=== PATIENT | female | born 1960 | race Caucasian/White ===

== ENCOUNTER → 2018-12-22 14:35 | Outpatient (CLI) | payer OTHER, SELFPAY ==
[2014-09-23 06:47] VITALS: BMI 31.4
[2018-12-22 15:37] LABS: Anion Gap 6 (5-15); BUN 19 mg/dL (7-18); BUN/Creat Ratio 24.1 RATIO (10-20); Calcium,Total 9.3 mg/dL (8.5-10.1); Chloride 106 mmol/L (98-107); Creatinine, Serum 0.79 mg/dL (0.55-1.02); EST Glomerular Filtration Rate 80 mL/min (>60); Est Glom Filt Rate - Afr Amer 97 mL/min (>60); Glucose 95 mg/dL (74-106); Sodium Level 138 mmol/L (136-145)
== END ==
PROVIDERS: Referring Provider Internal Medicine Endocrinology, Diabetes & Metabolism; Visit Provider Internal Medicine Endocrinology, Diabetes & Metabolism
DX: L68.0 Hirsutism (principal); L64.9 Androgenic alopecia, unspecified
CPT/HCPCS: 36415; 80048

== ENCOUNTER → 2019-02-24 08:52 | Outpatient (CLI) | payer OTHER, SELFPAY ==
[2014-09-23 06:47] VITALS: BMI 31.4
[2019-02-24 11:17] LABS: ALB/GLOB Ratio 1.1 RATIO (0.9-2.4); AST(SGOT) 13 U/L (15-37); Alanine Aminotransfer ALT/SGPT 20 U/L (13-56); Albumin, Serum 3.8 g/dL (3.2-5.0); Alkaline Phosphatase 81 U/L (45-117); Anion Gap 7 (5-15); BUN 16 mg/dL (7-18); Calcium,Total 9.1 mg/dL (8.5-10.1); Chloride 107 mmol/L (98-107); Cholesterol 198 mg/dL (200); Creatinine, Serum 0.67 mg/dL (0.55-1.02); EST Glomerular Filtration Rate 97 mL/min (>60); Est Glom Filt Rate - Afr Amer 117 mL/min (>60); Globulin 3.4 g/dL (2.2-4.2); Glucose 88 mg/dL (74-106); High Density Lipoprotein 76 mg/dL; Potassium 4.2 mmol/L (3.5-5.1); Protein, Total 7.2 g/dL (6.4-8.2); Sodium Level 139 mmol/L (136-145); Triglycerides 101 mg/dL; Very Low Density Lipoprotein 20 mg/dL (5-40)
== END ==
PROVIDERS: Referring Provider Internal Medicine Endocrinology, Diabetes & Metabolism; Visit Provider Internal Medicine Endocrinology, Diabetes & Metabolism
DX: L68.0 Hirsutism (principal); E78.2 Mixed hyperlipidemia
CPT/HCPCS: 36415; 80053; 80061

== ENCOUNTER 2021-07-03 17:40 | Outpatient (CLI) | payer OTHER, SELFPAY ==
--- NOTE | 2021-07-03 17:41 | MRI_ITS ---
EXAM: MR LEFT UPPER EXTREMITY WITHOUT INTRAVENOUS CONTRAST, SHOULDER CLINICAL INDICATION: injury, pain TECHNIQUE: Multiplanar and multisequence MR images of the left shoulder without intravenous contrast. This report was created using evly report generation technology. COMPARISON: None. FINDINGS: TENDONS: SUPRASPINATUS: Complete tear of the supraspinatus tendon. Distance of a tear of the supraspinatus tendon is 13 mm. There is retraction. INFRASPINATUS: Normal infraspinatus tendon. Normal subscapularis tendon. Normal teres minor tendon. SUBSCAPULARIS: See above. TERES MINOR: See above. BICEPS BRACHII, LONG HEAD: Unremarkable. The extra-articular biceps tendon is in the bicipital groove. The intra-articular biceps tendon is normal. LIGAMENTS: GLENOHUMERAL: Unremarkable. Intact. MUSCLES: Unremarkable. No rotator cuff muscle atrophy. FLUID: Unremarkable. No joint effusion. No subacromial-subdeltoid space bursal fluid. CARTILAGE: Unremarkable. Articular cartilage intact. GLENOID LABRUM: Unremarkable. Intact, limited evaluation on non-arthrographic exam. BONES/JOINTS: There is moderate degenerative arthrosis of the glenohumeral articulation. No fracture. No abnormal bone marrow signal. OTHER SOFT TISSUES: Unremarkable. No rotator interval edema. MRI/Upper Ext Joint Only(Routine) IMPRESSION: Complete tear of the supraspinatus tendon. Electronically Signed: Rich Sanon MD at 19:42 EST Reading Location ID and State: [facility] / [place] , Service support ,
== END 2021-07-03 23:59 | disposition home or self-care (01) ==
PROVIDERS: PCP Family Medicine; Visit Provider Orthopaedic Surgery
DX: M24.819 Other specific joint derangements of unspecified shoulder, not elsewhere classified (principal); S46.912A Strain of unspecified muscle, fascia and tendon at shoulder and upper arm level, left arm, initial encounter
CPT/HCPCS: 73221

== ENCOUNTER → 2023-03-21 | Outpatient (CLI) | payer OTHER, SELFPAY ==
[2023-03-21 12:36] LABS: Absolute Lymphocyte Count 1.52 X10^3/uL (0.83-4.51); Absolute Neutrophil Count 3.8 X10^3/uL (2.0-7.7); Basophil# 0.03 X10^3/uL; Basophil% 0.5 % (0-1); Eosinophil# 0.38 X10^3/uL; Eosinophils% 6.3 % (0-5); Hematocrit 43.3 % (37-47); Hemoglobin 14.3 g/dL (12.0-15.0); Lymphocyte # 1.52 X10^3/ul (0.83-4.51); Lymphocyte % 25.2 % (19-41); Mean Corpuscular Volume 93.7 fL (81-99); Mean Platelet Vol. 10.1 fl (6.2-12.0); NRBC Flagged by Analyzer 0 % (0-5); Neutrophil # 3.77 X10^3/uL (2.7-7.7); Neutrophil % 62.7 % (47-70); Platelet Count 257 K/mm3 (150-450); RBC Distribution Width CV 11.9 % (11.6-14.6); RBC Distribution Width SD 40.9 fl (35.1-43.9); Red Blood Count 4.62 M/mm3 (4.2-5.4)
[2023-03-21 13:03] LABS: ALB/GLOB Ratio 1.2 RATIO (0.9-2.4); AST(SGOT) 15 U/L (15-37); Alanine Aminotransfer ALT/SGPT 21 U/L (13-56); Alkaline Phosphatase 84 U/L (45-117); Anion Gap 4 (5-15); BUN 17 mg/dL (7-18); BUN/Creat Ratio 24.4 RATIO (10-20); Chloride 109 mmol/L (98-107); Cholesterol 198 mg/dL (200); EST Glomerular Filtration Rate 91 mL/min (>60); Est Glom Filt Rate - Afr Amer 110 mL/min (>60); Globulin 3.2 g/dL (2.2-4.2); Glucose 94 mg/dL (74-106); High Density Lipoprotein 69 mg/dL; Potassium 4.1 mmol/L (3.5-5.1); Protein, Total 7.2 g/dL (6.4-8.2); Sodium Level 138 mmol/L (136-145); Thyroid Stim Hormone (TSH) 1.69 uIU/mL (0.358-3.74); Triglycerides 75 mg/dL; Very Low Density Lipoprotein 15 mg/dL (5-40)
== END | disposition home or self-care (01) ==
LOC: BFHLAB 10:33
PROVIDERS: PCP Family Medicine; Referring Provider Family Medicine; Visit Provider Family Medicine
DX: Z00.00 Encounter for general adult medical examination without abnormal findings (principal); E66.9 Obesity, unspecified; R53.83 Other fatigue
CPT/HCPCS: 36415; 80053; 80061; 84443; 85025

== ENCOUNTER 2023-07-27 16:43 | Emergency (ER) | payer OTHER, SELFPAY ==
[2023-07-27 16:44] VITALS: BP 146/70; PULSE 97; RESP 18; TEMP 36.6; O2SAT 99; BMI 32.0
[2023-07-27 17:34] LABS: Mucous, Urine 0 SEEN /hpf (<or=2+); Squamous Epithelial Cells - UA 0 SEEN /hpf (5-10)
[2023-07-27 17:36] LABS: Color, Urine Brown (Yellow); Glucose, Dipstick Normal (Normal); Ketone-Dipstick 15 mg/dl (Negative); Leukocyte Esterase-Dipstick 100 /ul (Negative); Nitrite-Dipstick Positive (Negative); Occult Blood-Urine 250 /ul (Negative); Protein-Dipstick 500 mg/dl (Negative); Urine Clarity Turbid (Clear); Urine Urobilinogen Normal (Normal)
[2023-07-27 17:38] LABS: Urine Bilirubin Dipstick 1 mg/dL (Negative)
[2023-07-27 17:42] LABS: Bacteria 2+ /hpf (None Seen); Red Blood Cells-Urine 25-50 SEEN /hpf (0-5); White Blood Cells 10-25 SEEN /hpf (0-5)
[2023-07-27] MEDS: Cephalexin 250 MG Capsule 500 MG PO (18:16)
--- NOTE | 2023-07-27 18:16 | EDS_ITS ---
HPI History of Present Illness Chief Complaint: Complaint Informant: patient and spouse/S.O. Narrative Narrative: 63-year-old female presenting to the emergency room with chief complaint of blood in the urine. Patient states that it has varied in color today. She feels like she is emptying her bladder. She is not on a blood thinner. No fevers. She has no dysuria or frequency. No trauma. She is not smoker. She has had UTIs in the past but not any blood like this. PFSH PFSH Medical History Acute maxillary sinusitis, unspecified Rotator cuff tear, left Home Medications sertraline 50 mg tablet ea PO 05/16/21 [History Last Taken Unknown] cephalexin 500 mg capsule 500 mg PO Q12 #14 CAPSULES 07/27/23 [Rx Last Taken Unknown] Allergy/AdvReac Type Severity Reaction Status Date / Time Sulfa (Sulfonamide Allergy Rash Verified 04/02/22 12:01 Antibiotics) Family History Father Hypertension Mother Dementia Surgical History History of hysterectomy History of repair of ACL History of tonsillectomy Social History Smoking Status: Never smoker alcohol intake: current alcohol intake frequency: holidays/special occasions only Alcohol type: wine ROS ROS ED Constitutional Constitutional ED: Denies chills or weight loss Eyes Eyes: Denies change in vision or diplopia ENT ENT ED: Denies ear pain, rhinorrhea or sore throat Cardiovascular Cardiovascular: Denies chest pain, orthopnea, palpitations or racing heartbeat Respiratory/Chest Respiratory/Chest: Denies cough, dyspnea or orthopnea Gastrointestinal Gastrointestinal: Denies abdominal pain, diarrhea, nausea or vomiting Genitourinary Genitourinary ED: Reports hematuria; Denies dysuria or urinary frequency Musculoskeletal Musculoskeletal: Denies arthralgias or myalgias Integumentary Denies abscess or rash Neurologic Neurologic: Denies headache(s) or weakness Psychiatric Psychiatric: Denies anxiety, depression, suicidal ideation or suicidal thoughts Endocrine Endocrinology: Denies polydipsia, polyphagia or polyuria Allergic/Immunologic Allergic/Immunologic ED: Denies mouth swelling, tongue swelling or urticaria EXAM Physical Exam Const Vital Signs: 07/27/23 16:44 Temperature 97.8 F Temperature Source Temporal Pulse Rate 97 Respiratory Rate 18 Blood Pressure 146/70 H Blood Pressure Mean 95 Pulse Ox 99 Oxygen Delivery Method Room Air Positive well nourished and well developed General Appearance ED: well developed HEENT Reports normocephalic, head/scalp atraumatic and moist mucous membranes Eyes PERRL and EOMs intact bilaterally Neck no lymphadenopathy, supple and no JVD Resp normal respiratory effort and clear to auscultation bilaterally Cardio regular rate, regular rhythm and no murmurs GI normal to inspection, nondistended, normoactive bowel sounds and non-tender Palpation: soft Back/Spine no CVA tenderness and normal ROM Extremity normal to inspection General Extremety ED: Negative for edema General Extremity: Negative for edema Neuro oriented x3 and CN's II-XII intact bilaterally Sensorium / Orientation: alert Motor Exam: strength 5/5 throughout Psych mental status grossly normal Mood & Affect: Negative for depressed or tearful Skin no rashes or lesions noted and no wounds MDM MDM MDM Narrative Medical decision making narrative: Urine was sent for a formal UA and for culture. UA shows 2+ bacteria 10-25 white blood cells 25-50 red cells positive leukocyte esterase and positive nitrates. Patient currently has a hemorrhagic cystitis. Will treat with Keflex and ensure that she is drinking plenty of fluids. She understand return instructions for retention or for worsening. She understands she may need to follow-up with urology if not improving. First dose of antibiotics will be given here. History & Record Review Discussion w/independent historian: Patient and Significant other Lab Data Attestation: I reviewed the patient's lab results. Labs: Laboratory Results - last 24 hr 07/27/23 17:28 Urine Color Brown Urine Clarity Turbid Urine pH 7.0 Ur Specific [place] 1.020 Urine Protein 500 H Urine Glucose (UA) Normal Urine Ketones 15 H Urine Occult Blood 250 H Urine Nitrite Positive H Urine Bilirubin 1 H Urine Urobilinogen Normal Ur Leukocyte Esterase 100 H Urine RBC 25-50 SEEN Urine WBC 10-25 SEEN Ur Squamous Epith Cells 0 SEEN Urine Bacteria 2+ Urine Mucus 0 SEEN Discharge Plan Triage Chief Complaint: Complaint ED Provider: Geovanni Dillon Dx/Rx/DC Orders Clinical Impression: Acute hemorrhagic cystitis Instructions: ED Hematuria, ED Cystitis Female Adult Prescriptions: New cephalexin [cephalexin] 500 mg capsule 500 mg PO Q12 Qty: 14 0RF No Action sertraline 50 mg tablet PO Patient Comments: take 1/2 tablet by mouth daily for 7 days then 1 tablet daily Primary Care Provider: Susie Vela Referrals: Susie Vela MD [Primary Care Provider] - Rigoberto Prather MD [Med Staff - Active Staff] - As Needed (for urology) Disposition Disposition: Home, Self Care
--- OUTSIDE RECORDS SUMMARY | 2023-07-27 18:21 | XMS RPT_ITS | CCD ---
Author Name Unknown Address [address] [place] [address] Organization [facility] Care Team Providers Care Cna Instructor Name Role Phone Susie Vela Primary Care Provider PHYSICIAN, PATIENT UNSURE Primary Care Physician Unavailable SUSIE VELA Attending Unavailable PHYSICIAN, PATIENT UNSURE Primary Care Mehnazvai SUSIE Ch Attending Unavailable PHYSICIAN, PATIENT UNSURE Primary Care Unavai labSUSIE Willett Attending Unavailable PHYSICIAN, PATIENT UNSURE Primary Care Unavai lable Allergies Allergy Classification Reported Allergen(s) Allergy Type Date of Onset Reaction(s) Facility (5 sources) Sulfonamides (Antibiotic) Propensity to adverse reactions 6 Rash [facility] Work Phone: Medications Completed/Discontinued Medications Medication Drug Class(es) Dates Sig (Normalized) Sig (Original) Calcium Carbonate / vitamin D3 (5 sources) Start: 09-10-2007 calcium carbonate/vitamin d3(CALCIUM 500 WITH VITAMIN D 500 MG-125 UNIT TAB) Take one(1) tablet twice daily. 0 09/10/2007 Active Problems Active Problems Problem Classification Problem Date Documented Da te Episodic/Chronic Other screening for suspected conditions (not mental disorders or infectious disease) (2 sources) Patient encounter status; Translations: [Encounter for screening mammogram for malignant neoplasm of breast] Episodic Sprains and strains (7 sources) Traumatic rupture of rotator cuff; Translations: [Strain of muscle(s) and tendon(s) of the rotator cuff of left shoulder, initial encounter] Onset: 07-18-2021 Episodic Past or Other Problems Problem Classification Problem Date Documented Date Episodic/Chronic Other aftercare (5 sources) Drug therapy finding; Translations: [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] Onset: 07-18-2021 07-18-2021 Episodic Other circulatory disease (5 sources) History of paroxysmal supraventricular tachycardia; Translations: [Personal history of other diseases of the circulatory system] Onset: 07-18-2021 07-18-2021 Episodic Results Test Name Value Interpretation Reference Range Facil ity Encounters Encounter Date Encounter Type Care Provider Facility Start: 11-05-2022 End: 11-06-2022 ambulatory SUSIE VELA Facility:A Start: 11-05-2022 End: 11-05-2022 Patient encounter procedure SUSIE VELA [facility] Start: 10-10-2022 End: 10-11-2022 ambulatory SUSIE VELA Facility:B Start: 10-10-2022 End: 10-10-2022 Patient encounter procedure SUSIE VELA [facility] Start: 10-03-2022 End: 10-04-2022 ambulatory SUSIE VELA Facility:B Start: 10-03-2022 End: 10-03-2022 Patient encounter procedure SUSIE VELA [facility] Start: 10-25-2021 End: 10-25-2021 Patient encounter procedure Frantz Tate MD Work Phone: Orthopaedics Procedures Date Procedure Procedure Detail Performing Clinician Start: 10-09-2021 End: 10-09-2021 Screening mammography bi 2-view breast inc cad Yisel Damian MD Work Phone: Start: 08-22-2020 Mammography Frantz benitez MD Work Phone: Start: 01-12-2015 Colonoscopy Frantz benitez MD Work Phone: Plan of Treatment Date Care Activity Detail Author Start: 01-12-2025 Colonoscopy COLONOSCOPY [facility] Start: 01-12-2025 COLORECTAL CANCER SCREENING COLORECTAL CANCER SCREENING [facility] Start: 10-09-2022 Mammography MAMMOGRAM [facility] Start: 01-10-2022 Influenza vaccination INFLUENZA (Season Ended) [facility] Start: 08-22-2021 Mammography MAMMOGRAM [facility] Start: 06-10-2021 LIPID SCREEN LIPID SCREEN [facility] Start: 04-10-2021 COVID-19 VACCINE (3 - Booster for Moderna series) COVID-19 VACCINE (3 - Booster for Moderna series) [facility] Start: 06-10-2019 DIABETES SCREEN DIABETES SCREEN [facility] Start: 01-28-2012 SHINGRIX VACCINE (1 of 2) SHINGRIX VACCINE (1 of 2) [facility] Start: 2007 COLOGUARD (FIT-DNA) COLOGUARD (FIT-DNA) [facility] Start: [address] COLONOGRAPHY [facility] Start: 2007 FECAL OCCULT BLOOD FECAL OCCULT BLOOD [facility] Start: 2007 SIGMOIDOSCOPY SIGMOIDOSCOPY [facility] Start: 1981 Urine microalbumin profile DTAP,TDAP,TD (1 - Tdap) [facility] Start: 01-28-1980 HEPATITIS C SCREENING HEPATITIS C SCREENING [facility] Start: 01-28-1980 HIV SCREENING HIV SCREENING [facility] Start: 1974 Adult depression screening assessment DEPRESSION SCREENING [facility] End: 10-28-2022 Screening mammography bi 2-view breast inc cad MARÍA SCREENING Radiology Routine Encounter for screening mammogram for malignant neoplasm of breast 1 Occurrences starting 09/28/2021 until 10/28/2022 [facility] Work Phone: Payers Date Payer Category Payer Unknown [id number] 2021 Unknown [facility] PRE ANA M FULL[employer] INSURED [id number] 2021-Present [phone] [address] [place] [address] O [id number] 1960 Unknown [id number] 1960 Unknown [id number] 1960 Unknown [id number] Social History Date Type Detail Facility Tobacco smoking stat us NMIS Never smoked tobacco [facility] Work Phone: Start: 08-23-2021 End: 10-25-2021 Alcohol intake Current drinker of alcohol (finding) [facility] Start: 1960 Sex Assigned At Not on file C [facility] Start: 08-03-2021 End: 10-25-2021 Exposure to SARS-CoV-2 (event) Not sure [facility] Work Phone: Medical Equipment Procedure Code Equipment Code Equipment Origin al Text Equipment Identifier Dates Lyme Sut Kntls Bio-Swvlok Fb [id number] Start: 08-01-2021 System Speedbrid ge Swivelock 4.75mm Biocomposite 19.1mm Endoscopic Fixation - [id number] Start: 08-01-2021 Clinical Notes 07-12-2021 to 11-05-2022 Frantz Tate MD - 10/25/2021 9:11 AM Luis - Mammography Coordinator - 10/09/2021 9:23 AM RT Osawldo(Isabella) - 10/09/2021 9:10 AM Black Tate MD - 08/13/2021 1:53 PM EDT Note Date & Type Note Facility 11-05-2022 Note ORIGINAL FROM: [address] [address] PROCEDURE FOR: SABINA LOZANO [address] [place] [address] Home: PID#: [id number] Exam#: [id number] : 1960 Age: 62 TO: SUSIE VELA MD [address] [id number] EXAMINATION: ULTRASOUND OF THE RIGHT BREAST 11/05/2022 12:37 pm TECHNIQUE: Color flow and real-time targeted ultrasound of the retroareolar right breast were performed. COMPARISON: October 03, 2022, October 10, 2022 HISTORY: ORDERING SYSTEM PROVIDED HISTORY: Reason for Exam: REPEAT US FINDINGS: In the area of patient palpable interest in the retroareolar region of the right breast, normal breast parenchyma is identified without a discrete solid or cystic mass. Normal breast parenchyma also likely correlates with the area of possible sonographic interest based on the prior ultrasound report. IMPRESSION: No discrete solid or cystic mass in the retroareolar region of the right breast. Clinical follow-up is recommended. The patient may return to annual mammographic screening. BIRADS: MAMMOGRAM BI-RADS: 2: Benign finding RECALL: return to screening RECALL TYPE: mammo LETTER SENT: Normal BI-RADS 1 and 2 Interpreted by: Charito Marinelli Preliminary Report By: Charito Marinelli Electronically signed By Charito Marinelli Dictated Date: 11/05/2022 1:36:07 PM Prelim Date: 11/05/2022 1:37:51 PM Sign Date: 11/05/2022 1:37:51 PM Ordering Provider: SUSIE VELA CLINICAL: PALPABLE LUMP RIGHT BREASTRETROAREOLAR REGION. Human Resources Safety Manager: KENN RODRIGUEZ RDCT letter sent: Normal BI-RADS 1 and 2 Ultrasound BI-RADS: 2 Benign [facility] 11-05-2022 Note ORIGINAL FROM: [place] [address] PROCEDURE FOR: SABINA LOZANO [address] [place] [address] Home: PID#: [id number] Exam#: [id number] : 1960 Age: 62 TO: SUSIE VELA MD [address] [place] [address] EXAMINATION: ULTRASOUND OF THE RIGHT BREAST 11/05/2022 12:37 pm TECHNIQUE: Color flow and real-time targeted ultrasound of the retroareolar right breast were performed. COMPARISON: October 03, 2022, October 10, 2022 HISTORY: ORDERING SYSTEM PROVIDED HISTORY: Reason for Exam: REPEAT US FINDINGS: In the area of patient palpable interest in the retroareolar region of the right breast, normal breast parenchyma is identified without a discrete solid or cystic mass. Normal breast parenchyma also likely correlates with the area of possible sonographic interest based on the prior ultrasound report. IMPRESSION: No discrete solid or cystic mass in the retroareolar region of the right breast. Clinical follow-up is recommended. The patient may return to annual mammographic screening. BIRADS: MAMMOGRAM BI-RADS: 2: Benign finding RECALL: return to screening RECALL TYPE: mammo LETTER SENT: Normal BI-RADS 1 and 2 Interpreted by: Charito Marinelli Preliminary Report By: Charito Marinelli Electronically signed By Charito Marinelli Dictated Date: 11/05/2022 1:36:07 PM Prelim Date: 11/05/2022 1:37:51 PM Sign Date: 11/05/2022 1:37:51 PM Ordering Provider: SUSIE VELA CLINICAL: PALPABLE LUMP RIGHT BREASTRETROAREOLAR REGION. Human Resources Safety Manager: KENN RODRIGUEZ [facility] letter sent: Normal BI-RADS 1 and 2 Ultrasound BI-RADS: 2 Benign [facility] 10-10-2022 Note ORIGINAL FROM: [address] [address] PROCEDURE FOR: SABINA LOZANO [address] [place] [address] Home: PID#: [id number] Exam#: [id number] : 1960 Age: 62 TO: SUSIE VELA MD [address] [place] [address] EXAMINATION: ULTRASOUND OF THE RIGHT BREAST 10/10/2022 8:33 am TECHNIQUE: Color flow and real-time targeted ultrasound of the right breast retroareolar region were performed. COMPARISON: Mammogram 10/03/2022, 10/09/2021 HISTORY: ORDERING SYSTEM PROVIDED HISTORY: Reason for Exam: palpable lump with normal mammo Patient presents for further evaluation of right breast palpable area. Per the technologist to perform the scanned, they are uncertain if the area imaged on ultrasound series #1-1 image /5 IS A clump of fibroglandular tissue or a true finding. The technologist states that this area is in the palpable region. FINDINGS: There is a possible vague hypoechoic area versus focal fibroglandular tissue in the right breast retroareolar region measuring up to 0.9 cm by my measurement. This finding may correlate with the palpable area of concern but is indeterminate. No other significant sonographic finding is identified in the scanned region of the right breast. IMPRESSION: Possible vague hypoechoic area versus focal fibroglandular tissue in the right breast retroareolar region is indeterminate. A repeat ultrasound in the presence of a radiologist is recommended. BIRADS: MAMMOGRAM BI-RADS: 0: Needs addl evaluation RECALL: immediate RECALL TYPE: Right US LETTER SENT: Abnormal-Needs additional work up BI-RADS 0 Interpreted by: Tena Holley Preliminary Report By: Tena Holley Electronically signed By Tena Holley Dictated Date: 10/10/2022 8:55:06 AM Prelim Date: 10/10/2022 12:15:00 PM Sign Date: 10/10/2022 12:15:00 PM Ordering Provider: SUSIE VELA CLINICAL: PALPABLE LUMP RIGHT BREAST. Human Resources Safety Manager: AUTUMN PEMBERTON RT(R) RDCT letter sent: Normal BI-RADS 1 and 2 Ultrasound BI-RADS: 0 Indeterminate [facility] 10-10-2022 Note ORIGINAL FROM: [facility] [address] [place] [id number] PROCEDURE FOR: SABINA LOZANO [address] [place] [address] Home: PID#: [id number] Exam#: [id number] : 1960 Age: 62 TO: SUSIE VELA MD [address] [place] [address] EXAMINATION: ULTRASOUND OF THE RIGHT BREAST 10/10/2022 8:33 am TECHNIQUE: Color flow and real-time targeted ultrasound of the right breast retroareolar region were performed. COMPARISON: Mammogram 10/03/2022, 10/09/2021 HISTORY: ORDERING SYSTEM PROVIDED HISTORY: Reason for Exam: palpable lump with normal mammo Patient presents for further evaluation of right breast palpable area. Per the technologist to perform the scanned, they are uncertain if the area imaged on ultrasound series #1-1 image 5/5 IS A clump of fibroglandular tissue or a true finding. The technologist states that this area is in the palpable region. FINDINGS: There is a possible vague hypoechoic area versus focal fibroglandular tissue in the right breast retroareolar region measuring up to 0.9 cm by my measurement. This finding may correlate with the palpable area of concern but is indeterminate. No other significant sonographic finding is identified in the scanned region of the right breast. IMPRESSION: Possible vague hypoechoic area versus focal fibroglandular tissue in the right breast retroareolar region is indeterminate. A repeat ultrasound in the presence of a radiologist is recommended. BIRADS: MAMMOGRAM BI-RADS: 0: Needs addl evaluation RECALL: immediate RECALL TYPE: Right US LETTER SENT: Abnormal-Needs additional work up BI-RADS 0 Interpreted by: Tena Holley Preliminary Report By: Tena Holley Electronically signed By Tena Holley Dictated Date: 10/10/2022 8:55:06 AM Prelim Date: 10/10/2022 12:15:00 PM Sign Date: 10/10/2022 12:15:00 PM Ordering Provider: SUSIE VELA CLINICAL: PALPABLE LUMP RIGHT BREAST. Human Resources Safety Manager: AUTUMN PEMBERTON RT(R) RDMS letter sent: Normal BI-RADS 1 and 2 Ultrasound BI-RADS: 0 Indeterminate [facility] 10-25-2021 Note HNO ID: [id number] Author: Frantz Tate MD Service: ? Author Type: Physician Type: Progress Notes Filed: 11/05/2021 10:29 AM Note Text: Frantz Tate MD Department of Orthopaedics Orthopaedics [address] [place] [address] Dept: [phone] Dept October 25, 2021 CHIEF COMPLAINT: Post Op of the Left Shoulder and 12 weeks 1 days post op Left shoulder arthroscopic (rotator cuff repair and SAD). HPI Patient reports doing very well plan she states she essentially has no pain or any issues. She is very pleased with her results thus far and is looking forward to a pleasant summer full activities . AMB ROOMING INTAKE FLOWSHEET DATA Risk Screening Do you have concerns about personal safety or safety in the home?: No Patient denies any pain today. Continuing physical therapy and home exercises. ASSESSMENT: S46.012D Traumatic complete tear of left rotator cuff, subsequent encounter (primary encounter diagnosis) SUMMARY/PLAN: Everything looks great postoperatively. She can continue her strengthening program and return to activities as she tolerates. She can follow-up on an as-needed basis. Exam: Surgical sites appear to be healing very nicely without any concerns. She has excellent motion with 170 degrees of forward elevation, external of 50, internal to the low thoracic spine. Supporting Information Below: Medications: Current Outpatient Medications Medication Sig - sertraline (ZOLOFT) 50 mg tablet Take 50 mg by mouth once daily. - calcium carbonate/vitamin d3(CALCIUM 500 WITH VITAMIN D 500 MG-125 UNIT TAB) Take one(1) tablet twice daily. - therapeutic multivitamin ORAL Tab Take one(1) tablet daily. - morphine SR (MS CONTIN) 15 mg 12 hr tablet Take 1 tablet by mouth every 12 hours for 3 days. for pain No current facility-administered medications for this visit. Allergies: Sulfa (Sulfonamide Antibiotics) Frantz Tate MD [facility] 10-25-2021 History of Present illness Narrative Frantz Tate MD Department of Orthopaedics Orthopaedics [facility] [address] [facility] [address] Dept: [phone] Dept October 25, 2021 CHIEF COMPLAINT: Post Op of the Left Shoulder and 12 weeks 1 days post op Left shoulder arthroscopic (rotator cuff repair and SAD). HPI Patient reports doing very well plan she states she essentially has no pain or any issues. She is very pleased with her results thus far and is looking forward to a pleasant summer full activities . AMB ROOMING INTAKE FLOWSHEET DATA Risk Screening Do you have concerns about personal safety or safety in the home?: No Patient denies any pain today. Continuing physical therapy and home exercises. ASSESSMENT: S46.012D Traumatic complete tear of left rotator cuff, subsequent encounter (primary encounter diagnosis) SUMMARY/PLAN: Everything looks great postoperatively. She can continue her strengthening program and return to activities as she tolerates. She can follow-up on an as-needed basis. Exam: Surgical sites appear to be healing very nicely without any concerns. She has excellent motion with 170 degrees of forward elevation, external of 50, internal to the low thoracic spine. Supporting Information Below: Medications: Current Outpatient Medications Medication Sig sertraline (ZOLOFT) 50 mg tablet Take 50 mg by mouth once daily. calcium carbonate/vitamin d3(CALCIUM 500 WITH VITAMIN D 500 MG-125 UNIT TAB) Take one(1) tablet twice daily. therapeutic multivitamin ORAL Tab Take one(1) tablet daily. morphine SR (MS CONTIN) 15 mg 12 hr tablet Take 1 tablet by mouth every 12 hours for 3 days. for pain No current facility-administered medications for this visit. Allergies: Sulfa (Sulfonamide Antibiotics) Frantz Tate MD documented in this encounter [facility] 10-09-2021 Note HNO ID: [id number] Author: RT Joelle(R) Service: ? Author Type: Technologist Type: Progress Notes Filed: 10/09/2021 9:25 AM Note Text: Radiology Service Progress Note PATIENT NAME: Sabina Lozano DATE OF SERVICE: October 09, 2021 TIME: 9:09 AM PATIENT IDENTITY VERIFICATION COMPLETED USING TWO (2) IDENTIFIERS: Name and Date of confirmed by patient verbally. FALL SCREENING: Has the patient had 2 falls in the last year or 1 fall with injury or currently using an Ambulatory Assistive Device (Walker, Cane, Wheelchair, Crutches, etc.)? No PATIENT GENDER DATA: Female. status: : No status: NO. PATIENT RELEVANT IMPLANT DATA REVIEWED: Not Applicable RADIOLOGY DEPARTMENT: Mammography PERIPHERAL IV DATA: Not applicable SIGNED BY: RT Joelle(R) October 09, 2021 9:09 AM [facility] 10-09-2021 Miscellaneous Notes October 09, 2021 PID: [id number] Sabina Huynh [address] [place] [address] Dear Ms. Lozano, We are pleased to inform you that the results of your recent breast imaging exam on 10/09/2021 are normal. Early detection of cancer is very important. We also understand recommendations regarding breast cancer screening are controversial. Please discuss with your primary care provider which strategy is best for you and whether a mammogram is right for you. Your imaging studies and report will be kept on file at [facility] as part of your permanent medical record and are available for your continuing care. Thank you for allowing us to help in meeting your health care needs. Sincerely, Dr. Medrano Interpreting Radiologist [facility] (Normal over 40) documented in this encounter [facility] 10-09-2021 History of Present illness Narrative Radiology Service Progress Note PATIENT NAME: Sabina Lozano DATE OF SERVICE: October 09, 2021 TIME: 9:09 AM PATIENT IDENTITY VERIFICATION COMPLETED USING TWO (2) IDENTIFIERS: Name and Date of confirmed by patient verbally. FALL SCREENING: Has the patient had 2 falls in the last year or 1 fall with injury or currently using an Ambulatory Assistive Device (Walker, Cane, Wheelchair, Crutches, etc.)? No PATIENT GENDER DATA: Female. status: : No status: NO. PATIENT RELEVANT IMPLANT DATA REVIEWED: Not Applicable RADIOLOGY DEPARTMENT: Mammography PERIPHERAL IV DATA: Not applicable SIGNED BY: RT Joelle(R) October 09, 2021 9:09 AM documented in this encounter [facility] 09-20-2021 Note HNO ID: [id number] Author: Frantz Tate MD Service: ? Author Type: Physician Type: Progress Notes Filed: 09/20/2021 1:49 PM Note Text: Frantz Tate MD Department of Orthopaedics Orthopaedics [address] [facility] [address] Dept: [phone] Dept September 20, 2021 CHIEF COMPLAINT: Established Patient, Follow Up, and Arthroscopy-2 of the Left Shoulder. HPI Patient presents with: Left Shoulder - Established Patient, Follow Up, Arthroscopy-2 AMB ROOMING INTAKE FLOWSHEET DATA Risk Screening Do you have concerns about personal safety or safety in the home?: No 7 weeks post op left shoulder arthroscopic rotator cuff repair No pain in shoulder post op. Doing really well. Would like to do post op rehab/ therapy at a place in [place] ([facility]). ASSESSMENT: S46.012A Traumatic complete tear of left rotator cuff, initial encounter (primary encounter diagnosis) SUMMARY/PLAN: She is actually doing quite well. She is pleased with her motion. She has significant improvement in her pain already despite some stiffness accordingly. We will get into physical therapy. Exam: Surgical incisions of healed nicely. Gentle range of motion in her waist and even with forward elevation and without pain. Supporting Information Below: Medications: Current Outpatient Medications Medication Sig - sertraline (ZOLOFT) 50 mg tablet Take 50 mg by mouth once daily. - calcium carbonate/vitamin d3(CALCIUM 500 WITH VITAMIN D 500 MG-125 UNIT TAB) Take one(1) tablet twice daily. - therapeutic multivitamin ORAL Tab Take one(1) tablet daily. - morphine SR (MS CONTIN) 15 mg 12 hr tablet Take 1 tablet by mouth every 12 hours for 3 days. for pain No current facility-administered medications for this visit. Allergies: Sulfa (Sulfonamide Antibiotics) Frantz Tate MD [facility] 08-13-2021 Note HNO ID: [id number] Author: Frantz Tate MD Service: ? Author Type: Physician Type: Progress Notes Filed: 08/23/2021 8:48 AM Note Text: Frantz Tate MD Department of Orthopaedics Orthopaedics [address] [facility] [address] Dept: [phone] Dept August 13, 2021 CHIEF COMPLAINT: post op left shoulder. HPI She is about 2 and half or 3 weeks after surgery. Everything is looking quite well. She not having much troubles at all other than what you would expect with some normal and mild stiffness and soreness in the shoulder. Patient presents for suture removal after appointment with Dr. Tate. The wound is well healed without signs of infection. The sutures are removed. Reviewed next post op appointments with patient. ASSESSMENT: S46.012A Traumatic complete tear of left rotator cuff, initial encounter (primary encounter diagnosis) SUMMARY/PLAN: I did clip the one tail at the skin as the pullout stitch did not come out very kindly. Absorbable stitch over time so not an issue. Exam: Surgical incisions look excellent. Mild and appropriate pinkness. Very gentle range of motion of the shoulders without any pain. Neurovascular exam intact. Supporting Information Below: Medications: Current Outpatient Medications Medication Sig - sertraline (ZOLOFT) 50 mg tablet Take 50 mg by mouth once daily. - calcium carbonate/vitamin d3(CALCIUM 500 WITH VITAMIN D 500 MG-125 UNIT TAB) Take one(1) tablet twice daily. - therapeutic multivitamin ORAL Tab Take one(1) tablet daily. - morphine SR (MS CONTIN) 15 mg 12 hr tablet Take 1 tablet by mouth every 12 hours for 3 days. for pain No current facility-administered medications for this visit. Allergies: Sulfa (Sulfonamide Antibiotics) Frantz Tate MD [facility] 08-13-2021 History of Present illness Narrative Frantz Tate MD Department of Orthopaedics Orthopaedics [address] [facility] [address] Dept: [phone] Dept August 13, 2021 CHIEF COMPLAINT: post op left shoulder. HPI She is about 2 and half or 3 weeks after surgery. Everything is looking quite well. She not having much troubles at all other than what you would expect with some normal and mild stiffness and soreness in the shoulder. Patient presents for suture removal after appointment with Dr. Tate. The wound is well healed without signs of infection. The sutures are removed. Reviewed next post op appointments with patient. ASSESSMENT: S46.012A Traumatic complete tear of left rotator cuff, initial encounter (primary encounter diagnosis) SUMMARY/PLAN: I did clip the one tail at the skin as the pullout stitch did not come out very kindly. Absorbable stitch over time so not an issue. Exam: Surgical incisions look excellent. Mild and appropriate pinkness. Very gentle range of motion of the shoulders without any pain. Neurovascular exam intact. Supporting Information Below: Medications: Current Outpatient Medications Medication Sig sertraline (ZOLOFT) 50 mg tablet Take 50 mg by mouth once daily. calcium carbonate/vitamin d3(CALCIUM 500 WITH VITAMIN D 500 MG-125 UNIT TAB) Take one(1) tablet twice daily. therapeutic multivitamin ORAL Tab Take one(1) tablet daily. morphine SR (MS CONTIN) 15 mg 12 hr tablet Take 1 tablet by mouth every 12 hours for 3 days. for pain No current facility-administered medications for this visit. 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 Staffing PROGRAM CHECKER: Johanna Jenkins APRN.PROGRAM CHECKER Performed by: RIGO Indications and Patient Condition Preoxygenated: yes Patient position: sniffing Indications for airway management: anesthesia anesthesia circuit Method: asleep Final Airway Details Final airway type: endotracheal airway Final Endotracheal Airway: ETT Cuffed: yes Successful intubation technique: direct laryngoscopy Devices used: intubating stylet Endotracheal tube insertion site: oral Blade: Joe Blade size: #3 ETT size (mm): 7.0 Measured from: lips Measurement (cm): 20 Placement verified by: chest auscultation and capnometry Cormack-Lehane Classification: grade IIa - partial view of glottis Number of attempts at approach: 1 SIGNATURE: Johanna Jenkins APRN.PROGRAM CHECKER PATIENT NAME: Sabina Lozano DATE: August 01, 2021 TIME: 8:11 AM CSN: [id number] [facility] 08-01-2021 Note HNO ID: [id number] Author: Xavi Stephenson MD Service: ? Author Type: Anesthesiologist Type: Anesthesia Procedure Notes Filed: 08/01/2021 7:51 AM Note Text: ANESTHESIOLOGY PROCEDURE NOTE Peripheral Nerve Block General Information Procedure Start Time/Medication Administration: 08/01/2021 7:20 AM Procedure End time: 08/01/2021 7:27 AM Patient location during procedure: PACU Timeout Performed Pre-procedure: timeout performed Consent Obtained: Yes Patient identity confirmed: arm band and patient Reason for block: post-op pain management/at surgeon's request Staffing Anesthesiologist: Xavi Stephenson MD Performed by: anesthesiologist Preparation Sterility Preparation: hand hygiene performed prior to procedure, sterile gloves, drapes, and procedure tray, gown used during line insertion, surgical cap used, mask used, sterile drape used during line insertion, skin prep agent completely dried prior to procedure Site Prep: Chloraprep Pre-Procedure Neuro Exam Location: LUE Sensory: intact Motor: intact Procedure Details Patient Position: supine Monitoring: Pulse OX, EKG and NIBP Block Type Upper Extremity: brachial plexus Approach: interscalene Laterality: left Injection Technique: single-shot Ultrasound Guided: Yes Image in Chart: yes Local Infiltration: Yes Needle Needle Type: echogenic Needle Gauge: 20 G Needle Length: 51 mm Needle Localization: ultrasound Assessment Injection assessment: negative aspiration, no paresthesia on injection, incremental injection and local visualized surrounding nerve on ultrasound Paresthesia: none Post-Procedure Neuro Exam Expected Regional Anesthesia: Yes Medications Administered Ropivacaine (PF) 5 mg/mL (0.5 %) injection (NAROPIN), 12.5 mL SIGNATURE: Xavi Stephenson MD PATIENT NAME: Sabina Lozano DATE: August 01, 2021 TIME: 7:50 AM CSN: [id number] [facility] 07-12-2021 Note HNO ID: [id number] Author: Frantz Tate MD Service: ? Author Type: Physician Type: Progress Notes Filed: 07/31/2021 8:04 AM Note Text: Frantz Tate MD Department of Orthopaedics Orthopaedics [address] [facility] [address] Dept: [phone] Dept July 12, 2021 CHIEF COMPLAINT: New and Pain of the Left Shoulder HPI Patient here today for left shoulder pain x 6 months. States 12/2020 she fell down a couple steps in the dark and she grabbed to catch herself. She is a side sleeper and pain will wake her at night. 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 She has tried heat and cold wraps, Aleve and OTC pain patches. Patient brought outside imaging along for viewing today. ASSESSMENT: S46.012A Traumatic complete tear of left rotator cuff, initial encounter (primary encounter diagnosis) PLAN: With a full-thickness, slightly retracted rotator cuff tear now probably 6 months out, recommendation is for surgical intervention. The risks, benefits, alternatives and potential complications were discussed. She understands and would like to pursue surgery. She understands expectations and postoperative course. We will get her scheduled accordingly FOLLOW UP INSTRUCTIONS: As above Ms. Sabina Lozano was advised as to contrast therapies and/or to take analgesics/anti-inflammatories as needed and all contraindications were reviewed. OBJECTIVE: Ms. Sabina Lozano is a pleasant 61 year old in no apparent distress. Gen:LMP 05/30/2005 nl development, non obese, no deformities ENT: Normocephalic, normal hearing, moist mucosa CV: Pulses:Radial= 2+ and symmetric, capillary refill < 2 secs, no peripheral edema/varicosities Skin: no rash, bruising or lesions. Good turgor. Psych: cooperative and appropriate, alert and oriented x 3, good mood and affect. Musculoskeletal: Supple range of motion of the cervical spine without pain. Spurling signs are negative. No atrophy of the deltoid and shoulder musculature. Left shoulder is nontender to palpation over the SC joint, clavicle and AC joint. No tenderness to palpation over the posterior shoulder, positive tenderness palpation over the anterior lateral corner of the shoulder and greater tuberosity. Mild tenderness at the bicipital groove. Active range of motion is 150 degrees of forward elevation, 60 degrees external rotation, and internal rotation to the mid lumbar spine. Passive range of motion is symmetrical, limited by pain, respectively. No laxity with anterior and posterior stress. Painful Neer and Workman impingement signs. 3+/5 strength with supraspinatus, 4/5 infraspinatus and 5/5 subscapularis. Sensation is intact in the axillary, radial, median and ulnar nerve distribution IMAGING: MRI from an outside facility of the left shoulder shows a full-thickness rotator cuff tear with some mild retraction of supraspinatus and part of infraspinatus. Supporting Subjective Information Below: Past Medical History: PAST MEDICAL HISTORY Diagnosis Date - Paroxysmal supraventricular tachycardia (HCC) Supraventricular tachycardia - PMH - PAST MEDICAL HISTORY OF SP ABLATION Past Surgical History: PAST SURGICAL HISTORY Procedure Laterality Date - COLONOSCOPY FLX DX W/COLLJ SPEC WHEN PFRMD 01/12/15 Colonoscopy - LIG/TRNSXJ FLP TUBE ABDL/VAG APPR UNI/BI 1990 Tubal ligation - PAST SURGICAL HISTORY OF 09/2014 LEFT KNEE; ACL repair - RHINP PRIM LATANDALAR CRTLGSAND/ELVTN NASAL TI Rhinoplasty - TONSILLECTOMY PRIMARY/SECONDARY Tonsillectomy - TOTAL ABDOMINAL HYSTERECT W/WO RMVL TUBE OVARY 2004 Hysterectomy, JUAN, ovaries remain Family History: FAMILY HISTORY Problem Relation Age of Onset - Dementia Mother - Breast Cancer Maternal Aunt - other (OVARIAN CANCER) Maternal Grandmother 2 cousins paternal side - Breast Cancer Other 2 paternal cousins Social History: Social History Tobacco Use - Smoking status: Never Smoker - Smokeless tobacco: Never Used Substance Use Topics - Alcohol use: Yes Comment: Occasional - Drug use: No Medications: Current Outpatient Medications Medication Sig - sertraline (ZOLOFT) 50 mg tablet Take 50 mg by mouth once daily. - calcium carbonate/vitamin d3(CALCIUM 500 WITH VITAMIN D 500 MG-125 UNIT TAB) Take one(1) tablet twice daily. - therapeutic multivitamin ORAL Tab Take one(1) tablet daily. - metformin HCl (METFORMIN ORAL) Take by mouth. - spironolactone (ALDACTONE ORAL) Take by mouth. No current facility-administered medications for this visit. Allergies: Sulfa (Sulfonamide Antibiotics) ROS: General (negative for fatigue, malaise, weight loss/gain) HEENT (negative for headache, earache, recent vision changes, sinus pain, sore throat) Respiratory (no recent shortness of breath, hemoptysis) CV (negative for chest tightness, palpitations) Musculoskeletal (see HPI) Psych (no depression, anxiety) REFERRING PHYSICIAN: Ms. Sabina gruber (more content not included)... [facility] Evaluation + Plan note No data available for this section [facility] Diagnosis Encounter for screening mammogram for malignant neoplasm of breast- Primary Other screening mammogram [facility] Diagnosis Encounter for screening mammogram for malignant neoplasm of breast Other screening mammogram [facility] Diagnosis Traumatic complete tear of left rotator cuff, subsequent encounter- Primary documented in this encounter [facility] Discharge instructions No data available for this section [facility] Progress note No data available for this section [facility] Reason for referral (narrative)* Diagnostic Procedure Only (Routine) - Pending Review Specialty Diagnoses / Procedures Referred By Miriam marks Referred To Contact [facility] Diagnoses Encounter for screening mammogram for malignant neoplasm of breast Procedures MARÍA SCREENING SCREENING MAMMOGRAPHY BI 2-VIEW BREAST INC Yisel Hernandez MD [address] [place] [address] [facility] [address] [place] [phone] Referral ID Status Reason Start Date Expiration Date Visits Requested Visits Authorized [id number] Pending Review Auto-Generat ed Referral 09/28/2021 10/28/2022 1 1 [facility] for referral (narrative)* Diagnostic Procedure Only (Routine) - Closed Specialty Diagnoses / Procedures Referred By Miriam marks Referred To Contact [facility] Diagnoses Encounter for screening mammogram for malignant neoplasm of breast Procedures MARÍA SCREENING SCREENING MAMMOGRAPHY BI 2-VIEW BREAST INC Yisel Hernandez MD [address] [place] [address] [facility] [address] [place], [place] [phone] Referral ID Status Reason Start Date Expiration Date V isits Requested Visits Authorized [id number] Closed Auto-Generate d Referral 09/28/2021 10/28/2022 1 1 [facility] for visit Narrative* Diagnostic Procedure Only (Routine) - Closed Specialty Diagnoses / Procedures Referred By Miriam marks Referred To Contact [facility] Diagnoses Encounter for screening mammogram for malignant neoplasm of breast Procedures MARÍA SCREENING SCREENING MAMMOGRAPHY BI 2-VIEW BREAST INC Yisel Hernandez MD [address] [place] [address] [facility] [address] [place] [address] Referral ID Status Reason Start Date Expiration Date V isits Requested Visits Authorized [id number] Closed Auto-Generate d Referral 09/28/2021 10/28/2022 1 1 [facility] Summary Purpose Family History No Family History Records FoundNo Family History Records FoundNo Family History Records Found Advance Directives No Advanced Directives Records FoundDocuments on File Type Date Recorded Patient Route Process Administrator Expl anation Advance Directive(s) 07/23/2021 1:11 PM Documents on File Type Date Recorded Patient Route Process Administrator Expl anation Advance Directive(s) 07/23/2021 1:11 PM Additional Source Comments INFORMATION SOURCE (unrecogn ized section and content) DATE CREATED AUTHOR AUTHOR'S ORGANIZ ATION 11/05/2021 [facility] DATE CREATED AUTHOR AUTHOR'S ORGANIZ ATION 11/08/2022 [facility] ([place]) Source Comments (unrecognize d section and content) In the event this informatio n is protected by the Federal Confidentiality of Alcohol and Drug Abuse Patient Records regulations: The Federal rules restrict any use of the information to criminally investigate or prosecute any alcohol or drug abuse patient.[facility] event this information is protected by the Federal Confidentiality of Alcohol and Drug Abuse Patient Records regulations: The Federal rules restrict any use of the information to criminally investigate or prosecute any alcohol or drug abuse patient.[facility] the event this information is protected by the Federal Confidentiality of Alcohol and Drug Abuse Patient Records regulations: The Federal rules restrict any use of the information to criminally investigate or prosecute any alcohol or drug abuse patient.[facility] the event this information is protected by the Federal Confidentiality of Alcohol and Drug Abuse Patient Records regulations: The Federal rules restrict any use of the information to criminally investigate or prosecute any alcohol or drug abuse patient.[facility] the event this information is protected by the Federal Confidentiality of Alcohol and Drug Abuse Patient Records regulations: The Federal rules restrict any use of the information to criminally investigate or prosecute any alcohol or drug abuse patient.[facility] Reason for Visit (unrecogniz ed section and content) Reason Comments 12 weeks 1 days post op Left shoulder ar throscopic rotator cuff repair and SAD Post Op Care Teams (unrecognized sec tion and content) Cna Instructor Relationship Specialty Start Date End Date Susie Vela [address] [place] [address] PCP - General Family Practice 07/23/21 Cna Instructor Relationship Specialty Start Date End Date Susie Vela [address] [place] [address] [place], [place] [phone] PCP - [facility] Family [facility] 07/23/21 Cna Instructor Relationship Specialty Start Date End Date Susie Vela [address] [address] PCP - [facility] Practice 07/23/21 Cna Instructor Relationship Specialty Start Date End Date Susie Vela [address] [address] PCP - [facility] Practice 07/23/21 FOR RECORDS PERTAINING TO PATIENTS WHO ARE OR HAVE BEEN ENROLLED IN A CHEMICAL DEPENDENCY/SUBSTANCEABUSE PROGRAM, SOME INFORMATION MAY BE OMITTED. This clinical summary was aggregated from multiple sources. Caution should be exercised in using it in the provision of clinical care. This summary normalizes information from multiple sources, and as a consequence, information in this document may materially change the coding, format and clinical context of patient data. In addition, data may be omitted in some cases. CLINICAL DECISIONS SHOULD BE BASED ON THE PRIMARY CLINICAL RECORDS. [facility] [employer] [facility]. provides no warranty or guarantee of the accuracy or completeness of information in this document.
== END 2023-07-27 18:23 | disposition home or self-care (01) ==
PROVIDERS: Emergency Provider Emergency Medicine; PCP Family Medicine; Visit Provider Emergency Medicine
DX: N30.90 Cystitis, unspecified without hematuria (principal); Z90.710 Acquired absence of both cervix and uterus
CPT/HCPCS: 81001; 87086; 87088; 99282

== ENCOUNTER → 2023-08-06 | Outpatient (CLI) | payer OTHER, SELFPAY ==
[2023-08-06 14:58] LABS: Color, Urine Yellow (Yellow); Glucose, Dipstick Normal (Normal); Ketone-Dipstick 5 mg/dl (Negative); Leukocyte Esterase-Dipstick 100 /ul (Negative); Nitrite-Dipstick Negative (Negative); Occult Blood-Urine 10 /ul (Negative); Protein-Dipstick Negative (Negative); Specific Gravity, Urine 1.025 (1.002-1.030); Urine Bilirubin Dipstick Negative (Negative); Urine Clarity Sl. Cloudy (Clear); Urine Urobilinogen Normal (Normal)
== END | disposition home or self-care (01) ==
LOC: MTLAB 12:53
PROVIDERS: PCP Family Medicine; Referring Provider Family Medicine; Visit Provider Family Medicine
DX: R31.9 Hematuria, unspecified (principal)
CPT/HCPCS: 81002

== ENCOUNTER → 2023-08-12 | Outpatient (CLI) | payer OTHER, SELFPAY | END | disposition home or self-care (01) | LOC: BFHLAB 11:39 | PROVIDERS: PCP Family Medicine; Visit Provider Family Medicine | DX: R31.9 Hematuria, unspecified (principal) | CPT/HCPCS: 81002; 87086 ==

== ENCOUNTER → 2023-08-28 | Outpatient (CLI) | payer OTHER, SELFPAY ==
--- NOTE | 2023-08-28 | CYSPIN_PTH ---
PATIENT: PALLAVI HOUSTON [facility]: [facility] U#:[id number] AGE/SX: 63/F ROOM: RE08/28/[address]: Dr. Susie Vela MD : 1960 BED: DIS: 08/28/2023 SPEC #: [id number] RECD: 08/29/23 09:22 STATUS: JANAY PIÑA #: [id number] NADIA: 08/28/23 00:[address]: Susie Vela DEPT: CYTOLOGY RECD BY: Donald Kee Tissues: Urine Procedures: Pap Stain (control) Special Stain Group II Cytospin Fluid HEADER OPERATION: Not noted PRE-OP DIAGNOSIS: Hematuria TISSUE SUBMITTED: Urine for cytology DIAGNOSIS CYTOLOGY Urine for cytology (cytospin): Negative for high grade urothelial carcinoma (Rashida Category II) Blood. See comment. LELAND/ 08/29/2023 COMMENT The Rashida System for urine cytology diagnostic categorization was used in the evaluation of this case. CYTOLOGY STUDY Slides are reviewed. CYTOLOGY GROSS Received is 15 ml of yellow cloudy fluid labeled with the patient's name and and designated per the requisition as urine. Submitted for cytology preparation. mr 08/29/23 TC:5 CPT: 08563
[2023-08-28 13:14] LABS: Cytology, Body Fluid / CSF SEE PATHOLOGY REPORT
[2023-08-28 15:28] LABS: Color, Urine Yellow (Yellow); Glucose, Dipstick Normal (Normal); Ketone-Dipstick 5 mg/dl (Negative); Leukocyte Esterase-Dipstick 25 /ul (Negative); Nitrite-Dipstick Negative (Negative); Occult Blood-Urine 250 /ul (Negative); Protein-Dipstick 15 mg/dl (Negative); Specific Gravity, Urine 1.025 (1.002-1.030); Urine Bilirubin Dipstick Negative (Negative); Urine Clarity Sl. Cloudy (Clear); Urine Urobilinogen 1 mg/dl (Normal)
== END | disposition home or self-care (01) ==
LOC: LABSPEC 13:10
PROVIDERS: PCP Family Medicine; Referring Provider Family Medicine; Visit Provider Family Medicine
DX: R31.9 Hematuria, unspecified (principal)
CPT/HCPCS: 81002; 87086; 87088; 88108; 88313

== ENCOUNTER → 2023-09-26 | Outpatient (CLI) | payer OTHER, SELFPAY ==
--- NOTE | 2023-09-26 | CYSPIN_PTH ---
PATIENT: PALLAV[facility] HOUSTON [facility] U#:[id number] AGE/SX: 63/F ROOM: RE09/26/[address]: Dr. Lesly Chappell MD : 1960 BED: DIS: 09/26/2023 SPEC #: [id number] RECD: 09/26/23 15:42 STATUS: JANAY PIÑA #: [id number] NADIA: 09/26/23 00:[address]: Lesly Chappell DEPT: CYTOLOGY RECD BY: Re Haq ENTERED: 09/29/23 08:44 SP TYPE: CYSPIN FL OTHR DR: Dr. Susie Vela MD Tissues: Urine Procedures: Pap Stain (control) Special Stain Group II Cytospin Fluid HEADER OPERATION: Not noted PRE-OP DIAGNOSIS: Gross hematuria TISSUE SUBMITTED: Urine for cytology DIAGNOSIS CYTOLOGY Urine for cytology (cytospin): Rare atypical urothelial cells present (AUC). Acute inflammatory cells and occasional bacterial colonies noted. Crystalline debris present. See comment. AM/mr 09/30/2023 COMMENT The Rashida System for urine cytology diagnostic categorization was used in the evaluation of this case. CYTOLOGY STUDY Slides are reviewed. CYTOLOGY GROSS Received is 35 ml of yellow cloudy fluid labeled with the patient's name and and designated per the requisition as urine. Submitted for cytology preparation. Mr 09/29/2023 TC:? CPT: 12916
[2023-09-26 17:57] LABS: Cytology, Body Fluid / CSF SEE PATHOLOGY REPORT
== END | disposition home or self-care (01) ==
LOC: LABSPEC 17:54
PROVIDERS: PCP Family Medicine; Visit Provider Urology
DX: R31.0 Gross hematuria (principal)
CPT/HCPCS: 88108; 88313

== ENCOUNTER → 2023-10-01 | Outpatient (CLI) | payer OTHER, SELFPAY ==
--- NOTE | 2023-10-01 16:42 | CT_ITS ---
EXAM: CT ABDOMEN AND PELVIS WITHOUT AND WITH INTRAVENOUS CONTRAST CLINICAL INDICATION: GROSS HEMATURIA TECHNIQUE: Helically acquired images were obtained of the abdomen and pelvis without and with intravenous contrast. CTDIvol = ( 21.59 ) mGy, DLP = ( 3212.68 ) mGycm This CT exam was performed using one or more of the following dose reduction techniques: automated exposure control, adjustment of the mA and/or kV according to patient size, and/or use of iterative reconstruction technique. CONTRAST: IV 100mL Isovue-300 COMPARISON: No relevant prior studies available. FINDINGS: LOWER THORAX: Small hiatal hernia. Lung bases are clear. No cardiomegaly. No significant pericardial effusion. ABDOMEN: LIVER: Unremarkable. Homogeneous. No focal mass. GALLBLADDER AND BILE DUCTS: Unremarkable. No calcified gallstones. No gallbladder distention or wall edema. No intra- or extrahepatic biliary ductal dilation. PANCREAS: Unremarkable. No focal cystic or solid mass. SPLEEN: Unremarkable. Normal size without focal cystic or solid mass. ADRENALS: Unremarkable. No nodules. KIDNEYS AND URETERS: 3 mm calyceal calculi at the upper pole of the left kidney. 4 mm calyceal calculus at the interpolar level and 5 calyceal calculus at the lower pole level of the left kidney. . Nonobstructing calyceal calculus at the right interpolar level. These are all nonobstructing. No hydronephrosis, solid renal masses or any other urolithiasis. STOMACH AND BOWEL: Small fat-containing umbilical hernia. No bowel herniation. PELVIS: APPENDIX: Normal appendix. No obstructive or inflammatory changes of bowel. BLADDER: Unremarkable. REPRODUCTIVE: Unremarkable as visualized. No mass. ABDOMEN and PELVIS: INTRAPERITONEAL SPACE: Unremarkable. No free air. No free fluid. BONES/JOINTS: Levocurvature of the thoracolumbar spine centered at the L2 level. Degenerative changes of the spine and pelvis. No unusual lytic or sclerotic lesions of bone. SOFT TISSUES: Overlying soft tissues are unremarkable. VASCULATURE: Unremarkable. Abdominal aorta is non-dilated. No collecting system filling defects on delayed imaging. LYMPH NODES: Unremarkable. No enlarged lymph nodes. CT/CT Abd/Pelvis W/WO Contrast IMPRESSION: 1. Left greater than right small nonobstructing renal calyceal calculi. 2. No other findings to explain microhematuria. Electronically Signed: Misha Don MD at 5:03 EDT ,
[2023-10-01 17:07] LABS: CREATININE FINGERSTICK < 1.0 mg/dL (0.55-1.02); EGFR FINGERSTICK > 60.0000 mL/min (>60)
== END | disposition home or self-care (01) ==
LOC: CT 16:39
PROVIDERS: PCP Family Medicine; Referring Provider Urology; Visit Provider Urology
DX: Z01.812 Encounter for preprocedural laboratory examination (principal); R31.0 Gross hematuria
CPT/HCPCS: 74178; Q9967

== ENCOUNTER → 2023-10-10 | Outpatient (CLI) | payer OTHER, SELFPAY ==
--- NOTE | 2023-10-10 15:06 | RAD_ITS ---
HISTORY: KUB- KIDNEY STONE. TECHNIQUE: XR Abdomen 1 View. COMPARISON: CT 10/01/2023. FINDINGS: BOWEL GAS PATTERN: No dilated bowel loops identified. Scattered stool throughout the colon. FREE AIR: Not assessed on supine view. CALCIFICATIONS: 3 mm left renal calculi again seen. BONES: Lumbar levoscoliosis. RAD/Abdomen Single View IMPRESSION: Left nephrolithiasis. Electronically Signed: Nita Walters MD at 10:48 EDT ,
== END | disposition home or self-care (01) ==
LOC: MTRAD 15:05
PROVIDERS: PCP Family Medicine; Referring Provider Urology; Visit Provider Urology
DX: N20.0 Calculus of kidney (principal)
CPT/HCPCS: 74018

== ENCOUNTER 2023-10-30 09:58 | Day surgery (SDC) | payer SELFPAY ==
[2023-10-27 12:37] LABS: Hematocrit 41.3 % (37-47); Hemoglobin 13.6 g/dL (12.0-15.0); Mean Corp Hgb Conc 32.9 g/dL (32-36); Mean Corpuscular Hgb 31.1 pg (27.0-32.0); Mean Corpuscular Volume 94.3 fL (81-99); Platelet Count 252 K/mm3 (150-450); RBC Distribution Width SD 41.8 fl (35.1-43.9); Red Blood Count 4.38 M/mm3 (4.2-5.4); White Blood Count 7.3 K/mm3 (4.4-11.0)
[2023-10-27 21:24] LABS: Anion Gap 7 (5-15); BUN 13 mg/dL (7-18); BUN/Creat Ratio 20.4 RATIO (10-20); Calcium,Total 9.3 mg/dL (8.5-10.1); Chloride 110 mmol/L (98-107); Creatinine, Serum 0.64 mg/dL (0.55-1.02); EST Glomerular Filtration Rate 100 mL/min (>60); Est Glom Filt Rate - Afr Amer 122 mL/min (>60); Glucose 85 mg/dL (74-106); Potassium 3.7 mmol/L (3.5-5.1); Sodium Level 142 mmol/L (136-145)
[2023-10-30] VITALS (10 sets, daily range): BP systolic 116–136; BP diastolic 65–85; PULSE 66–81; RESP 14–16; TEMP 36.2–36.6; O2SAT 96–100; BMI 31.9
[2023-10-30] MEDS: Lactated Ringers 1,000 ML 15 ML IV (10:29)
--- NOTE | 2023-10-30 10:38 | PRE.ANES_ITS ---
ASA Classification* ASA Classification ASA Classification: 2 Assessment & Plan Anesthesia* Anesthesia Assessment Anesthesia Assessment: Discussed sedation and/or anesthesia options, risks, benefits, and alternatives with patient/parents/legal guardian/POA. Questions invited. The patient/parents/legal guardian/POA seems to understand and agrees to proceed with anesthesia plan. Reviewed the physical assessment, medical history, allergy history and patient home medications list prior to surgery/procedure/anesthetic and documented any changes. Performed airway and anesthesia risk assessments. 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 When Was Last Pacemaker Check QUESTION #4 FULL TEXT: You/Your Family Experience fever (hyperthermia) with Anesthesia Last Oral Intake Last Oral intake: Last Oral Intake NPO since 09:00 10/30/23 10:29 Meds taken in AM with sips of No 10/30/23 10:29 water? Meds patient instructed to take am of surgery PONV PONV - tooling mechanic: PONV - tooling mechanic Female Yes 10/23/23 09:02 HX of Motion Sickness No 10/23/23 09:02 HX of N/V After Surgery No 10/23/23 09:02 Non-Smoker Yes 10/23/23 09:02 Duration of Surgery greater Yes 10/23/23 09:02 than 60 minutes Number of Risk Factors 3 10/23/23 09:02 PONV Score Moderate Risk 10/23/23 09:02 Height & Weight Height & Weight: Anesthesia: Height & Weight Height 5 ft 2 in 10/30/23 10:29 Weight: 79.2 kg 10/30/23 10:29 Body Mass Index (BMI) 31.9 10/30/23 10:29 Respiratory Assessment Respiratory Assessment - tooling mechanic: Respiratory Tract Infection Hx - tooling mechanic Hx Respiratory Tract Infection No 10/23/23 09:02 STOP Sleep Apnea STOP Sleep Apnea - tooling mechanic: STOP Sleep Apnea - tooling mechanic Hx Hypertension No 10/23/23 09:02 Hx Sleep Apnea No 10/23/23 09:02 CPAP No 09/16/14 15:16 BIPAP No 09/16/14 15:16 Do you snore loudly (louder No 10/23/23 09:02 than talking or can be heard Do you often feel tired/ No 10/23/23 09:02 fatigued/ sleepy during daytime? Has anyone observed you stop No 10/23/23 09:02 breathing during sleep? STOP Results Negative 10/23/23 09:02 QUESTION #5 FULL TEXT : Do you snore loudly (louder than talking or can be heard through closed doors)? 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 Specify any problems Hx of Preganancy in last 3 No 10/23/23 09:02 Months Nurse Filling Out Transfusion DSCHRIBER 10/23/23 09:02 & Questions: Date: 10/23/23 10/23/23 09:02 Time: 09:03 10/23/23 09:02 Patient unable to answer at this time (ie. confused, unrespo /Reproduction History /Reproductive History - tooling mechanic: /Reproductive Hx- tooling mechanic Hx Now No 10/23/23 09:02 Gestational Age (in weeks): EDC: Hx Hx Para Hx Section SAB No 10/23/23 09:02 Active Medications Active Medications: Current Medications Generic Name Dose Route Start Last Admin Trade Name Mateusq PRN Reason Stop Dose Admin Cefazolin Sodium 2 gm/ Sodium 110 mls @ 150 mls/hr 10/30/23 11:25 Chloride IV 10/30/23 12:08 PREOP ONE Lactated Ringer's 1,000 mls @ 15 mls/hr 10/30/23 10:15 10/30/23 10:29 IV 15 mls/hr .Q48H ELIZA Administration Anesthesia Focused Assessment* Temperature: 98 F Pulse Rate: 66 Blood Pressure: 116/65 Respiratory Rate: 16 Pulse Ox: 100 Airway Assessment Mouth opens: >3 cm Mallampati Score: II Focused Labs Anesthesia Preop lab: CBC WBC 7.3 K/mm3 (4.4-11.0) 10/27/23 11:12 RBC 4.38 M/mm3 (4.2-5.4) 10/27/23 11:12 Hgb 13.6 g/dL (12.0-15.0) 10/27/23 11:12 Hct 41.3 % (37-47) 10/27/23 11:12 Plt Count 252 K/mm3 (150-450) 10/27/23 11:12 CHEMISTRY Potassium 3.7 mmol/L (3.5-5.1) 10/27/23 11:12 Sodium 142 mmol/L (136-145) 10/27/23 11:12 BUN 13 mg/dL (7-18) 10/27/23 11:12 Creatinine 0.64 mg/dL (0.55-1.02) 10/27/23 11:12 Glucose 85 mg/dL (74-106) 10/27/23 11:12 TSH 1.69 uIU/mL (0.358-3.74) 03/21/23 10:36 COAG Review of Systems (Anesthesia) ROS Narrative System reviewed and no additional complaints, except as documented. [facility] Medical History Wears contact lenses Post-menopausal Depression Alcohol use Arthritis Low iron Heartburn Non-smoker Cardiology follow-up encounter Rotator cuff tear, left Acute maxillary sinusitis, unspecified Home Medications ?Medication ?Instructions ?Recorded ?Last Taken ?Type multivitamin (Daily Multi-Vitamin 1 tab PO DAILY 10/23/23 10/29/23 History tablet) semaglutide (weight loss) 1 mg/0.5 1 mg subcut Q7D 10/23/23 10/17/23 History mL subcutaneous pen injector Allergy/AdvReac Type Severity Reaction Status Date / Time Sulfa (Sulfonamide Allergy Rash Verified 10/30/23 10:10 Antibiotics) Family History Father Hypertension Mother Dementia Surgical History History of prior ablation treatment Hx of repair of left rotator cuff History of repair of ACL History of tonsillectomy History of hysterectomy Social History Smoking Status: Never smoker alcohol intake: current alcohol intake frequency: holidays/special occasions only Alcohol type: wine
[2023-10-30] MEDS: Cefazolin 2 GM in 0.9% Normal Saline (100mL Bag) 100 ML IV (10:59)
--- NOTE | 2023-10-30 11:25 | CYSPIN_PTH ---
PATIENT: PALLAVI HOUSTON LOC: [facility] [place] U#:[id number] AGE/SX: 63/F ROOM: RE10/30/[address]: Dr. Lesly Chappell MD : 1960 BED: DIS: 10/30/2023 SPEC #: [id number] RECD: 10/30/23 12:56 STATUS: JANAY REMae #: [id number] NADIA: 10/30/23 11:[address]: Lesly Chappell DEPT: CYTOLOGY RECD BY: Re Haq ENTERED: 10/30/23 13:33 SP TYPE: CYSPIN FL OTHR DR: Dr. Susie Vela MD Tissues: A - Urine B - Urine Procedures: Pap Stain (control) Special Stain Group II Cytospin Fluid Cytology Other HEADER OPERATION: Bilateral selective cytology, right attempted uretero PRE-OP DIAGNOSIS: Hematuria, kidney stones, urinary tract infection, stress incontinence, vaginal atrophy, introital dyspareunia TISSUE SUBMITTED: A- Right kidney urine for cytology, B- Left kidney urine for cytology DIAGNOSIS CYTOLOGY A. Right kidney urine for cytology (cytospin): Negative for high grade urothelial carcinoma (Rashida Category System II). See comment. B. Left kidney urine for cytology (cytospin): Negative for high grade urothelial carcinoma (Rashida Category System II). AM/mr 10/31/2023 COMMENT A. Sheets and clusters of mildly reactive urothelium is identified. Clinical correlation is suggested. CYTOLOGY STUDY Slides are reviewed. CYTOLOGY GROSS A. Received is 5 ml of light yellow-cloudy fluid labeled with the patient's name and and designated per the requisition as Right kidney urine. Submitted for cytology preparation. B. Received is 5 ml of light yellow cloudy fluid labeled with the patient's name and and designated per the requisition as Left kidney urine. Submitted for cytology preparation. Mr 10/30/2023 TC:5 CPT: 80542v7
--- NOTE | 2023-10-30 11:59 | DCINST_ITS ---
Discharge Instructions Diet Discharge Diet: No restrictions Activity Discharge Activity: Return to Normal Activity Dressing / Incision Call your doctor if you observe: Fever of 101 or Higher, Inability to urinate and Inability to have a bowel movement Follow Up Care Please Follow Up With: Lesly Chappell MD When: The office will call to make follow-up arrangements Test Results: Test results from this visit will be discussed in further detail at your follow- up appointment, if applicable. Discharge Plan Admission Attending Provider: Lesly Chappell Primary Care Provider: Susie Vela Instructions Print Language: Nicaraguan Discharge Orders/Prescriptions Prescriptions: New oxycodone-acetaminophen [Percocet] 5-325 mg tablet 1 tab PO Q8H PRN (Reason: pain) 5 Days Qty: 20 0RF cephalexin 500 mg capsule 500 mg PO Q12 3 Days Qty: 6 0RF phenazopyridine [Pyridium] 200 mg tablet 200 mg PO TID PRN PRN (Reason: Bladder Spasms) 7 Days Qty: 30 3RF ondansetron 4 mg tablet,disintegrating 4 mg PO Q8H PRN (Reason: nausea and vomiting) Qty: 10 0RF Continued multivitamin [Daily Multi-Vitamin] Tablet 1 tab PO DAILY semaglutide (weight loss) 1 mg/0.5 mL pen injector 1 mg subcut Q7D Referrals / Follow Up: Susie Vela MD [Primary Care Provider] - Disposition Disposition (needs filled in before D/C Order can be placed): Home, Self Care
--- NOTE | 2023-10-30 12:00 | PCM.OPRPT ---
Report of Operation Date of Procedure: 10/30/23 Pre-Operative Diagnosis: Gross hematuria, atypical cytology, left renal stones Post-Operative Diagnosis: Same, urethral stricture Surgery/Procedure Performed:: Urethral dilation, cystoscopy, bilateral selective cytology, attempted right ureteroscopy, bilateral ureteral stent insertion Surgeon: Lesly Chappell Type of Anesthesia: General Specimen's removed: Bilateral renal pelvic washings for cytology Description of Procedure: The patient is a 63-year-old female who came to the office with gross hematuria. On evaluation she was first found to have atypical cells on her cytology. Her CT scan then revealed left renal stones. She now presents for further evaluation of the blood and management of her stones. Informed consent was obtained. The patient was taken to the operating room and placed on the operating room table. Anesthesia monitored the head, neck, airway, IV access and vital signs throughout the case. Once anesthesia was appropriately administered, she was placed into dorsolithotomy position. She was prepped and draped in usual sterile fashion. The urethra would not accommodate the cystoscope. Sounds were used to dilate the urethra starting with [address] to 26 Trinid[place]. There was cracking of the urethra and the cystoscope was easily passed through the urethra into the urinary bladder without difficulty. The bladder mucosa was visualized in its entirety finding no evidence of mass, erythema, ulceration or foreign body. The right ureteral orifice was gently cannulated with a Pollick catheter which was advanced to 20 cm. Normal saline was then used to flush the renal pelvis and the fluid was collected and sent for cytologic evaluation. A brand-new Pollick catheter was used to repeat this process in the patient's left side. There was some difficulty in passage of the Pollick catheter and the help of a 0.035 Glidewire was used. At this time a 0.035 Glidewire was passed through the right ureteral orifice into the renal pelvis. The ureteral orifice would not accommodate the ureteroscope. The decision was made to abort ureteroscopy and place a ureteral stent. A 6 Trinidadian 22 cm stent was selected and was placed over the safety wire. The stent was tight and placement and advancement. The decision was made to proceed with stent insertion on the left side as well as there was difficulty in placement of the Pollick catheter. The 0.035 Glidewire was once again passed through the left ureteral orifice and into the renal pelvis. A 6 Trinidadian 22 cm stent was placed over the wire with good positioning in the renal pelvis as well as the urinary bladder. Once again this ureter was tight throughout its length as well. The patient's bladder was then emptied and the cystoscope was removed. She was awakened and taken to the recovery room in good condition. There were no complications during this procedure. Grafts/Implants Used: 6 Trinidadian x 22 cm JJ stent x 2 Complications None Admit VTE Documentation VTE Present on Admission: Yes VTE Mechan Device Prophylaxis: SCD's VTE Pharm Prophylaxis ordered?: No Reason prophylaxis not ordered:: Treatment Not Indicated
--- NOTE | 2023-10-30 12:50 | PCM.POST.ANE ---
Anesthesia: Postop Eval I Current Vital Signs Temperature: 97.5 F Pulse Rate: 81 Blood Pressure: 124/70 Respiratory Rate: 16 Pulse Ox: 99 Oxygen Delivery Method: Room Air Assessment Airway patent: Yes Spontaneous unlabored respirations: Yes Mental status: Awake and Calm nausea: No Vomiting: No Anesthesia Complication: No Fluid Hydration Crystalloid volume administer (ml): 300 Total IV fluid infused: 300 Progress Note Anesthesia document: Postop Eval 1 completed: Yes
--- NOTE | 2023-10-30 12:50 | PCM.POST.ANE ---
Anesthesia: Postop Eval I Current Vital Signs Temperature: 97.5 F Pulse Rate: 81 Blood Pressure: 124/70 Respiratory Rate: 16 Pulse Ox: 96 Oxygen Delivery Method: Room Air Assessment Airway patent: Yes Spontaneous unlabored respirations: Yes Mental status: Awake and Calm nausea: No Vomiting: No Anesthesia Complication: No Fluid Hydration Crystalloid volume administer (ml): 300 Total IV fluid infused: 300 Progress Note Anesthesia document: Postop Eval 1 completed: Yes
--- NOTE | 2023-10-30 13:22 | POSTOPAN2_ITS ---
Anesthesia Postop Eval I Sum Postop Eval Completion status Anesthesia document: Postop Eval 1 completed: Yes Anesthesia Postop Eval I Summary Anesthesia Postop Eval I Summary: Anesthesia Postop Eval I: Assessment Summary Airway patent Yes 10/30/23 12:51 LIGHT [email or web address] Spontaneous unlabored Yes 10/30/23 12:51 LIGHT TECHNICIAN.MDOT respirations Mental status Awake,Calm 10/30/23 12:51 LIGHT [email or web address].MDOT nausea No 10/30/23 12:51 LIGHT TECHNICIAN.MDOT Vomiting No 10/30/23 12:51 LIGHT [email or web address] Anesthesia Postop Eval I: Fluid Summary Crystalloid volume administer 300 10/30/23 12:51 LIGHT TECHNICIAN.MDOT (ml) Colloids volume administered ( ml) Blood Product volume administered (ml) Total IV fluid infused 300 10/30/23 12:51 LIGHT [email or web address] Anesthesia Postop Eval I: Summary Notes Anesthesia Complication No 10/30/23 12:51 LIGHT [email or web address] Anesthesia Complication Comment: Post-operative progress note Anesthesia: Postop Eval II Evaluation Mental status: Awake Pain Level: 0 nausea: No Vomiting: No Complications Anesthesia Complication: No
--- NOTE | 2023-10-30 13:22 | PCM.POSTANE2 ---
Anesthesia Postop Eval I Sum Postop Eval Completion status Anesthesia document: Postop Eval 1 completed: Yes Anesthesia Postop Eval I Summary Anesthesia Postop Eval I Summary: Anesthesia Postop Eval I: Assessment Summary Airway patent Yes 10/30/23 12:51 MUSICIAN [email or web address] Spontaneous unlabored Yes 10/30/23 12:51 MUSICIAN INSTRUMENTAL.MDOT respirations Mental status Awake,Calm 10/30/23 12:51 MUSICIAN INSTRUMENTAL.MDOT nausea No 10/30/23 12:51 MUSICIAN INSTRUMENTAL.MDOT Vomiting No 10/30/23 12:51 MUSICIAN INSTRUMENTAL.MDOT Anesthesia Postop Eval I: Fluid Summary Crystalloid volume administer 300 10/30/23 12:51 MUSICIAN INSTRUMENTAL.MDOT (ml) Colloids volume administered ( ml) Blood Product volume administered (ml) Total IV fluid infused 300 10/30/23 12:51 MUSICIAN INSTRUMENTAL.MDOT Anesthesia Postop Eval I: Summary Notes Anesthesia Complication No 10/30/23 12:51 MUSICIAN [email or web address].MDOT Anesthesia Complication Comment: Post-operative progress note Anesthesia: Postop Eval II Evaluation Mental status: Awake Pain Level: 0 nausea: No Vomiting: No Complications Anesthesia Complication: No
[2023-10-30] MEDS: oxyCODONE 5 MG Tablet PO (13:57)
[2023-10-30] MEDS: Phenazopyridine 95 MG Tablet PO (13:57)
[2023-11-03 06:26] LABS: Cytology, Body Fluid / CSF SEE PATHOLOGY REPORT
[2023-11-03 06:27] LABS: Cytology, Body Fluid / CSF SEE PATHOLOGY REPORT
== END 2023-10-30 15:23 | disposition home or self-care (01) ==
LOC: SDC 10:03 → AC 10:04
PROVIDERS: PCP Family Medicine; Referring Provider Urology; Visit Provider Urology
PROC: 0TJ98ZZ Inspection of Ureter, Via Natural or Artificial Opening Endoscopic (ICD-10-PCS; CPT 52352; principal; 2023-10-30 11:15)
DX: R31.0 Gross hematuria (principal); N35.92 Unspecified urethral stricture, female; N20.0 Calculus of kidney; N39.0 Urinary tract infection, site not specified; N95.2 Postmenopausal atrophic vaginitis; N39.3 Stress incontinence (female) (male); N94.11 Superficial (introital) dyspareunia
CPT/HCPCS: 52356; 00873; 36415; 76000; 80048; 85027; 88108; 88161; 88313; C2625; J2405

== ENCOUNTER 2023-11-20 10:53 | Day surgery (SDC) | payer SELFPAY ==
[2023-11-20] VITALS (10 sets, daily range): BP systolic 110–137; BP diastolic 65–75; PULSE 66–87; RESP 16–87; TEMP 36.7–36.9; O2SAT 16–100; BMI 31.4
[2023-11-20] MEDS: Lactated Ringers 1,000 ML 15 ML IV (11:21)
--- NOTE | 2023-11-20 11:53 | PRE.ANES_ITS ---
ASA Classification* ASA Classification ASA Classification: 2 Assessment & Plan Anesthesia* Anesthesia Assessment Anesthesia Assessment: Discussed sedation and/or anesthesia options, risks, benefits, and alternatives with patient/parents/legal guardian/POA. Questions invited. The patient/parents/legal guardian/POA seems to understand and agrees to proceed with anesthesia plan. Reviewed the physical assessment, medical history, allergy history and patient home medications list prior to surgery/procedure/anesthetic and documented any changes. Performed airway and anesthesia risk assessments. Anesthesia Type Anesthesia Type: General (see written pre anesthesia record for full assessment) Anesthesia Focused Assessment* Temperature: 98.5 F Pulse Rate: 66 Blood Pressure: 122/65 Respiratory Rate: 17 Pulse Ox: 100 Airway Assessment Mouth opens: >3 cm Mallampati Score: II Focused Labs Anesthesia Preop lab: CBC WBC 7.3 K/mm3 (4.4-11.0) 10/27/23 11:12 RBC 4.38 M/mm3 (4.2-5.4) 10/27/23 11:12 Hgb 13.6 g/dL (12.0-15.0) 10/27/23 11:12 Hct 41.3 % (37-47) 10/27/23 11:12 Plt Count 252 K/mm3 (150-450) 10/27/23 11:12 CHEMISTRY Potassium 3.7 mmol/L (3.5-5.1) 10/27/23 11:12 Sodium 142 mmol/L (136-145) 10/27/23 11:12 BUN 13 mg/dL (7-18) 10/27/23 11:12 Creatinine 0.64 mg/dL (0.55-1.02) 10/27/23 11:12 Glucose 85 mg/dL (74-106) 10/27/23 11:12 TSH 1.69 uIU/mL (0.358-3.74) 03/21/23 10:36 COAG Pre-Assessment Diagnosis/Proposed Procedure Planned Operative Procedure(s): (B) Cysto,Ureteroscopy,Retro,Dil,Laser,Stent Anesthesia History 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 When Was Last Pacemaker Check QUESTION #4 FULL TEXT: You/Your Family Experience fever (hyperthermia) with Anesthesia Last Oral Intake Last Oral intake: Last Oral Intake NPO since 07:00 11/20/23 11:21 Meds taken in AM with sips of No 11/20/23 11:21 water? Meds patient instructed to take am of surgery PONV PONV - studio designer: PONV - studio designer Female Yes 11/14/23 13:00 HX of Motion Sickness No 11/14/23 13:00 HX of N/V After Surgery No 11/14/23 13:00 Non-Smoker Yes 11/14/23 13:00 Duration of Surgery greater No 11/14/23 13:00 than 60 minutes Number of Risk Factors 2 11/14/23 13:00 PONV Score Moderate Risk 11/14/23 13:00 Height & Weight Height & Weight: Anesthesia: Height & Weight Height 5 ft 2 in 11/20/23 11:21 Weight: 78 kg 11/20/23 11:21 Body Mass Index (BMI) 31.4 11/20/23 11:21 Respiratory Assessment Respiratory Assessment - studio designer: Respiratory Tract Infection Hx - studio designer Hx Respiratory Tract Infection No 11/14/23 13:00 STOP Sleep Apnea STOP Sleep Apnea - studio designer: STOP Sleep Apnea - studio designer Hx Hypertension No 11/14/23 13:00 Hx Sleep Apnea No 11/14/23 13:00 CPAP No 11/14/23 13:00 BIPAP No 11/14/23 13:00 Do you snore loudly (louder No 11/14/23 13:00 than talking or can be heard Do you often feel tired/ No 11/14/23 13:00 fatigued/ sleepy during daytime? Has anyone observed you stop No 11/14/23 13:00 breathing during sleep? STOP Results Negative 11/14/23 13:00 QUESTION #5 FULL TEXT : Do you snore loudly (louder than talking or can be heard through closed doors)? 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 Specify any problems Hx of Preganancy in last 3 No 11/14/23 13:00 Months Nurse Filling Out Transfusion [facility] 11/14/23 13:00 & Questions: Date: 11/14/23 11/14/23 13:00 Time: 13:04 11/14/23 13:00 Patient unable to answer at this time (ie. confused, unrespo /Reproduction History /Reproductive History - studio designer: /Reproductive Hx- studio designer Hx Now No 11/14/23 13:00 Gestational Age (in weeks): EDC: Hx Hx Para Hx Section SAB No 11/14/23 13:00 Active Medications Active Medications: Current Medications Generic Name Dose Route Start Last Admin Trade Name Freq PRN Reason Stop Dose Admin Lactated Ringer's 1,000 mls @ 15 mls/hr 11/20/23 11:15 11/20/23 11:21 IV 15 mls/hr .Q48H ELIZA Administration PFSH Medical History Kidney stone Wears contact lenses Post-menopausal Depression Alcohol use Arthritis Low iron Heartburn Non-smoker Cardiology follow-up encounter Rotator cuff tear, left Acute maxillary sinusitis, unspecified Home Medications ?Medication ?Instructions ?Recorded ?Last Taken ?Type multivitamin (Daily Multi-Vitamin 1 tab PO DAILY 10/23/23 11/19/23 History tablet) cephalexin 500 mg capsule 500 mg PO Q12 post-operative 3 10/30/23 Unknown Rx days #6 CAPSULES ondansetron 4 mg disintegrating 4 mg PO Q8H PRN nausea and 10/30/23 Unknown Rx tablet vomiting #10 tabs phenazopyridine 200 mg tablet 200 mg PO TID PRN PRN Bladder 10/30/23 Unknown Rx (Pyridium) Spasms 7 days #30 tabs Allergy/AdvReac Type Severity Reaction Status Date / Time Sulfa (Sulfonamide Allergy Rash Verified 11/20/23 11:20 Antibiotics) Family History Father Hypertension Mother Dementia Surgical History History of prior ablation treatment Hx of repair of left rotator cuff History of repair of ACL History of tonsillectomy History of hysterectomy Social History Smoking Status: Never smoker alcohol intake: current alcohol intake frequency: holidays/special occasions only Alcohol type: wine Review of Systems (Anesthesia) ROS Narrative System reviewed and no additional complaints, except as documented.
[2023-11-20] MEDS: Cefazolin 2 GM in 0.9% Normal Saline (100mL Bag) 100 ML IV (13:20)
--- NOTE | 2023-11-20 14:17 | PCM.POST.ANE ---
Anesthesia: Postop Eval I Current Vital Signs Temperature: 98.2 F Pulse Rate: 87 Blood Pressure: 137/74 Respiratory Rate: 18 Pulse Ox: 94 Assessment Airway patent: Yes Spontaneous unlabored respirations: Yes nausea: No Vomiting: No Anesthesia Complication: No Fluid Hydration Crystalloid volume administer (ml): 500 Total IV fluid infused: 500 Progress Note Anesthesia document: Postop Eval 1 completed: Yes
--- NOTE | 2023-11-20 14:29 | EX.PCM.DISCH ---
Discharge Instructions Diet Discharge Diet: No restrictions Activity Discharge Activity: Return to Normal Activity Dressing / Incision Call your doctor if you observe: Fever of 101 or Higher, Inability to urinate and Inability to have a bowel movement Follow Up Care Please Follow Up With: Lesly Chappell MD When: In 2 to 3 weeks in the office. Test Results: Test results from this visit will be discussed in further detail at your follow-up appointment, if applicable. Discharge Plan Admission Attending Provider: Lesly Chappell Primary Care Provider: Susie Vela Instructions Print Language: Paraguayan Discharge Orders/Prescriptions Prescriptions: New oxycodone-acetaminophen [Percocet] 5-325 mg tablet 1 tab PO Q8H PRN (Reason: pain) 3 Days Qty: 9 0RF cephalexin 500 mg capsule 500 mg PO Q12 3 Days Qty: 6 0RF Continued multivitamin [Daily Multi-Vitamin] Tablet 1 tab PO DAILY cephalexin 500 mg capsule 500 mg PO Q12 3 Days Qty: 6 0RF phenazopyridine [Pyridium] 200 mg tablet 200 mg PO TID PRN PRN (Reason: Bladder Spasms) 7 Days Qty: 30 3RF ondansetron 4 mg tablet,disintegrating 4 mg PO Q8H PRN (Reason: nausea and vomiting) Qty: 10 0RF Referrals / Follow Up: Susie Vela MD [Primary Care Provider] - Disposition Disposition (needs filled in before D/C Order can be placed): Home, Self Care
--- NOTE | 2023-11-20 14:32 | PCM.OPRPT ---
Report of Operation Date of Procedure: 11/20/23 Pre-Operative Diagnosis: Gross hematuria, kidney stone Post-Operative Diagnosis: Same Surgery/Procedure Performed:: Cystoscopy, bilateral ureteroscopy, bilateral ureteral stent removal, attempted stone basket extraction Surgeon: Lesly Chappell Type of Anesthesia: General Specimen's removed: None Description of Procedure: The patient is a 63-year-old female who presented to the office for evaluation of gross hematuria. She was found to have an atypical cytology and the decision was made to proceed with ureteroscopy for full evaluation. She underwent bilateral selective cytologies which were negative. At that time attempts were made at ureteroscopy however her ureters were narrow and I was unable to gain access to the renal pelvis bilaterally. Bilateral stents were placed for dilation and she now presents for evaluation with ureteroscopy. Informed consent was obtained. The patient was taken to the operating room and placed on the operating room table. Anesthesia monitored the head, neck, airway, IV access and vital signs throughout the case. Once anesthesia was appropriately administered, she was placed into dorsolithotomy position was prepped and draped in usual sterile fashion. The cystoscope was inserted through the urethra under direct visualization into the urinary bladder. The indwelling right ureteral stent was identified. Alongside of it was inserted a 0.035 Glidewire and the stent was removed. The flexible ureteroscope was advanced over this wire all the way into the renal pelvis without difficulty. The entire renal pelvis was visualized directly including every calyx. There were multiple small stone fragments identified still within the papilla. There were no free-floating renal pelvic stones, there was an attempt to remove 1 stone fragment which was unsuccessful as the stone was too small to be retained within the basket. At this time the entire length of the ureter was directly visualized revealing no evidence of mass, erythema, foreign body or abnormality. The patient was left without a ureteral stent on the side. At this time the process was repeated on the patient's left side. Access to the renal pelvis was gained without difficulty. Other than some debris and very small stone fragments mimicking the patient's right side, there were no significant findings. Once again an attempt at stone basket extraction was performed and was unsuccessful. There were stone fragments identified within the papilla. There was no evidence of mass, erythema or other foreign body. The entire length of the ureter was then directly visualized with no significant findings. The ureteroscope was then removed and the cystoscope was used to drain the patient's bladder. At this time the scope was removed, the patient was awakened and taken to the recovery room in good condition. There were no complications during this procedure. Grafts/Implants Used: None Complications None Admit VTE Documentation VTE Present on Admission: Yes VTE Mechan Device Prophylaxis: SCD's VTE Pharm Prophylaxis ordered?: No Reason prophylaxis not ordered:: Treatment Not Indicated
--- NOTE | 2023-11-20 14:42 | POSTOPAN2_ITS ---
Anesthesia Postop Eval I Sum Postop Eval Completion status Anesthesia document: Postop Eval 1 completed: Yes Anesthesia Postop Eval I Summary Anesthesia Postop Eval I Summary: Anesthesia Postop Eval I: Assessment Summary Airway patent Yes 11/20/23 14:17 [email or web address] Spontaneous unlabored Yes 11/20/23 14:17 [email or web address] [email or web address] respirations Mental status nausea No 11/20/23 14:17 [email or web address] [email or web address] Vomiting No 11/20/23 14:17 [email or web address] Anesthesia Postop Eval I: Fluid Summary Crystalloid volume administer 500 11/20/23 14:17 [email or web address] (ml) Colloids volume administered ( ml) Blood Product volume administered (ml) Total IV fluid infused 500 11/20/23 14:17 [email or web address] Anesthesia Postop Eval I: Summary Notes Anesthesia Complication No 11/20/23 14:17 [email or web address] Anesthesia Complication Comment: Post-operative progress note Anesthesia: Postop Eval II Evaluation Mental status: Awake Pain Level: 1 nausea: No Vomiting: No
--- NOTE | 2023-11-20 14:42 | PCM.POSTANE2 ---
Anesthesia Postop Eval I Sum Postop Eval Completion status Anesthesia document: Postop Eval 1 completed: Yes Anesthesia Postop Eval I Summary Anesthesia Postop Eval I Summary: Anesthesia Postop Eval I: Assessment Summary Airway patent Yes 11/20/23 14:17 [email or web address] Spontaneous unlabored Yes 11/20/23 14:17 [email or web address] [email or web address] respirations Mental status nausea No 11/20/23 14:17 CHICKEN [email or web address] Vomiting No 11/20/23 14:17 [email or web address] [email or web address] Anesthesia Postop Eval I: Fluid Summary Crystalloid volume administer 500 11/20/23 14:17 [email or web address] [email or web address] (ml) Colloids volume administered ( ml) Blood Product volume administered (ml) Total IV fluid infused 500 11/20/23 14:17 CHICKEN [email or web address] Anesthesia Postop Eval I: Summary Notes Anesthesia Complication No 11/20/23 14:17 [email or web address] [email or web address] Anesthesia Complication Comment: Post-operative progress note Anesthesia: Postop Eval II Evaluation Mental status: Awake Pain Level: 1 nausea: No Vomiting: No
[2023-11-20] MEDS: Ketorolac 30 MG/ML Syringe 15 MG IV (15:17)
[2023-11-20] MEDS: Phenazopyridine 95 MG Tablet 190 MG PO (15:18)
== END 2023-11-20 15:55 | disposition home or self-care (01) ==
LOC: SDC 11:04 → AC 11:05
PROVIDERS: PCP Family Medicine; Referring Provider Urology; Visit Provider Urology
PROC: (CPT 52356; principal; 2023-11-20 12:20)
DX: N20.0 Calculus of kidney (principal); N35.82 Other urethral stricture, female; N95.2 Postmenopausal atrophic vaginitis; N39.3 Stress incontinence (female) (male); N94.11 Superficial (introital) dyspareunia
CPT/HCPCS: 52332; 00910; 76000; J7120; J2405

== ENCOUNTER → 2024-04-27 | Outpatient (CLI) | payer OTHER, SELFPAY ==
[2024-04-27 12:52] LABS: Calcium,Total 9.5 mg/dL (8.5-10.1)
== END | disposition home or self-care (01) ==
PROVIDERS: PCP Family Medicine; Referring Provider Urology; Visit Provider Urology
DX: R82.994 Hypercalciuria (principal)
CPT/HCPCS: 36415; 82310

== ENCOUNTER → 2024-06-07 | Outpatient (CLI) | payer SELFPAY ==
--- NOTE | 2024-06-07 | CYSPIN_PTH ---
PATIENT: PALLAVI HOUSTON LOC: [facility] U#:[id number] AGE/SX: 64/F ROOM: RE06/07/[address]: Dr. Lesly Chappell MD : 1960 BED: DIS: 06/07/2024 SPEC #: [id number] RECD: 06/08/24 08:03 STATUS: JANAY PIÑA #: [id number] ANDIA: 06/07/24 00:[address]: Lesly Chappell DEPT: CYTOLOGY RECD BY: Nadine Orellana ENTERED: 06/08/24 08:03 SP TYPE: CYSPIN FL OTHR DR: Dr. Susie Vela MD Tissues: Urine Procedures: Pap Stain (control) Special Stain Group II Cytospin Fluid HEADER OPERATION: Not noted PRE-OP DIAGNOSIS: Hematuria TISSUE SUBMITTED: Urine for cytology DIAGNOSIS CYTOLOGY Urine for cytology (cytospins): Negative for high grade urothelial carcinoma (NHGUC), Rashida System Category II. See comment. [email or web address] 06/08/2024 COMMENT The specimen is paucicellular. The Rashida System for urine cytology diagnostic categorization was used in the evaluation of this case. CYTOLOGY STUDY Slides are reviewed. CYTOLOGY GROSS Received is 35 ml of yellow cloudy fluid labeled with the patient's name and and designated per the requisition as urine. Submitted for cytology preparation. Mr 06/08/2024 TC:5 CPT: 13214
[2024-06-07 17:54] LABS: Cytology, Body Fluid / CSF SEE PATHOLOGY REPORT
== END | disposition home or self-care (01) ==
PROVIDERS: PCP Family Medicine; Referring Provider Urology; Visit Provider Urology
DX: R31.9 Hematuria, unspecified (principal)
CPT/HCPCS: 88108; 88313

== ENCOUNTER → 2024-06-07 | Outpatient (CLI) | payer SELFPAY ==
--- NOTE | 2024-06-07 09:09 | RAD_ITS ---
STUDY: X-RAY - ABDOMEN/PELVIS REASON FOR EXAM: Female, 64 years old. Renal stones. Follow-up. TECHNIQUE: Single AP view of the abdomen / pelvis. COMPARISON: October 10, 2023 FINDINGS: Normal bowel gas pattern. Stable small calcifications projected over the left renal shadow. There is no demonstrated free abdominal air. The visualized liver, spleen and kidneys are grossly normal in size and morphology. Normal soft tissue structures. Normal visualized osseous structures. RAD/Abdomen Single View IMPRESSION: Stable left nephrocalcinosis. Electronically Signed: Kavon Li MD at 14:18 EST ,
== END | disposition home or self-care (01) ==
PROVIDERS: PCP Family Medicine; Referring Provider Urology; Visit Provider Urology
DX: N20.0 Calculus of kidney (principal)
CPT/HCPCS: 74018

== ENCOUNTER → 2024-06-27 | Outpatient (CLI) | payer SELFPAY ==
[2024-06-27 11:37] LABS: Color, Urine Brown (Yellow); Glucose, Dipstick Normal (Normal); Ketone-Dipstick 5 mg/dl (Negative); Leukocyte Esterase-Dipstick 100 /ul (Negative); Nitrite-Dipstick Positive (Negative); Occult Blood-Urine 250 /ul (Negative); Protein-Dipstick 100 mg/dl (Negative); Urine Bilirubin Dipstick 1 mg/dL (Negative); Urine Clarity Turbid (Clear); Urine Urobilinogen 1 mg/dl (Normal); Urine pH 6.5 (5.0 - 8.0)
== END | disposition home or self-care (01) ==
LOC: LABSPEC 11:16
PROVIDERS: PCP Family Medicine; Visit Provider Urology
DX: N39.0 Urinary tract infection, site not specified (principal); R31.0 Gross hematuria; R30.0 Dysuria
CPT/HCPCS: 81002; 87086; 87088

== ENCOUNTER → 2024-10-06 | Outpatient (CLI) | payer SELFPAY ==
[2024-10-06 11:06] LABS: Absolute Lymphocyte Count 1.54 X10^3/uL (0.83-4.51); Absolute Neutrophil Count 3.5 X10^3/uL (2.0-7.7); Basophil# 0.04 X10^3/uL; Basophil% 0.7 % (0-1); Eosinophil# 0.43 X10^3/uL; Eosinophils% 7.3 % (0-5); Hematocrit 42.9 % (37-47); Hemoglobin 14.4 g/dL (12.0-15.0); Lymphocyte # 1.54 X10^3/ul (0.83-4.51); Lymphocyte % 26.2 % (19-41); Mean Corp Hgb Conc 33.6 g/dL (32-36); Mean Corpuscular Hgb 31.6 pg (27.0-32.0); Mean Corpuscular Volume 94.3 fL (81-99); Mean Platelet Vol. 9.9 fl (6.2-12.0); Monocyte# 0.35 X10^3/uL; NRBC Flagged by Analyzer 0 % (0-5); Neutrophil % 59.5 % (47-70); Platelet Count 269 K/mm3 (150-450); RBC Distribution Width CV 12.3 % (11.6-14.6); RBC Distribution Width SD 43.2 fl (35.1-43.9); Red Blood Count 4.55 M/mm3 (4.2-5.4); White Blood Count 5.9 K/mm3 (4.4-11.0)
[2024-10-06 13:16] LABS: ALB/GLOB Ratio 1.6 RATIO (0.9-2.4); AST(SGOT) 19 U/L (<=31); Alanine Aminotransfer ALT/SGPT 18 U/L (<=34); Albumin, Serum 4.4 g/dL (3.4-4.8); Alkaline Phosphatase 94 U/L (35-104); Anion Gap 10 (5-15); BUN 16 mg/dL (4-19); BUN/Creat Ratio 24.3 RATIO (10-20); Calcium,Total 9.5 mg/dL (7.6-11.0); Carbon Dioxide 25.7 mmol/L (21.0-32.0); Chloride 105 mmol/L (98-108); Cholesterol 229 mg/dL (<=200); Creatinine, Serum 0.65 mg/dL (0.70-1.20); EST Glomerular Filtration Rate 100 (>60); Estradiol 7.3 pg/mL; Globulin 2.8 g/dL (2.2-4.2); Glucose 106 mg/dL (70-99); High Density Lipoprotein 73 mg/dL; Low Density Lipoprotein Calc. 126 mg/dL; Potassium 4.5 mmol/L (3.3-5.1); Protein, Total 7.1 g/dL (5.9-8.4); Sodium Level 141 mmol/L (133-145); Total Bilirubin 0.36 mg/dL (0.00-1.30); Triglycerides 151 mg/dL; Very Low Density Lipoprotein 30 mg/dL (5-40); cholesterol:hdl ratio screen 3.13
[2024-10-07 08:08] LABS: PROGESTERONE 0.1 ng/mL (.)
== END | disposition home or self-care (01) ==
LOC: MTLAB 09:13
PROVIDERS: PCP Family Medicine; Referring Provider Family Medicine; Visit Provider Family Medicine
DX: Z00.00 Encounter for general adult medical examination without abnormal findings (principal); R53.83 Other fatigue; E66.9 Obesity, unspecified
CPT/HCPCS: 36415; 80053; 80061; 82670; 84144; 84443; 85025

== ENCOUNTER → 2024-12-29 | Outpatient (CLI) | payer SELFPAY ==
--- NOTE | 2024-12-29 13:28 | BI_ITS ---
EXAM: SCRN MAMM (CAD)W/MAYKEL BILAT DATE: 12/29/2024 CLINICAL HISTORY: F, Age 64 y/o , SCREENING Aunt with breast cancer. TECHNIQUE: SCRN MAMM (CAD)W/MAYKEL BILAT COMPARISON: Prior exam(s) dated prior study dated October 08, 2023.. FINDINGS: TISSUE DENSITY: The breasts are heterogeneously dense, which may obscure small masses. Bilateral Breast Mammographic Findings: No significant masses, calcifications or other abnormalities are identified. Stable bilateral fat containing axillary lymph nodes. No suspicious masses, areas of developing architectural distortion, or suspicious calcifications. There has been no significant interval change. BI/SCRN MAMM (CAD)W/MAYKEL BILAT IMPRESSION: Stable examination. OVERALL FINAL ASSESSMENT BI-RADS 2: BENIGN RECOMMENDATION: Routine annual follow-up in 1 Year A letter with findings and recommendations will be mailed to the patient. Reading Location: [id number]
== END | disposition home or self-care (01) ==
PROVIDERS: PCP Family Medicine; Referring Provider Family Medicine; Visit Provider Family Medicine
DX: Z12.31 Encounter for screening mammogram for malignant neoplasm of breast (principal); Z80.3 Family history of malignant neoplasm of breast
CPT/HCPCS: 77063; 77067

== ENCOUNTER → 2025-01-03 | Outpatient (CLI) | payer SELFPAY ==
[2025-01-17 13:08] LABS: Ca Oxalate, Dihydrate 30 % (.); Ca Oxalate, Monohydrate 70 % (.)
--- OUTSIDE RECORDS SUMMARY | 2025-03-17 12:07 | XMS RPT_ITS | CCD ---
Author Organization [facility] CliniSymd Care Team Providers Care Business Services Intern Name Role Phone Susie Vela Primary Care Provider PHYSICIAN, PATIENT UNSURE Primary Care Physician Unavailable PHYSICIAN, PATIENT UNSURE Primary Care MehnazvaSUSIE Moore Attending Unavailable SUSIE VELA Attending Unavailable PHYSICIAN, PATIENT UNSURE Primary Care Unavai lable PHYSICIAN, PATIENT UNSURE Primary Care Unavai SUSIE Ch Attending Unavailable Dane ELIAS, Dr. Richards Primary Care Provider Ta ELIAS, Dr. Grace Attending Provider Dr. Susie Vela MD Attending Provider Dr. Susie Vela MD Referring Provider Dr. Susie Veal MD Primary Care Provider Ta ELIAS, Dr. Grace Attending Provider Caleb Velanah Primary Care Unavailable Caleb Velanah Referring Unavailable Susie Vela Attending Unavailable Dane, Susie Primary Care Unavailable Lesly Chappell Referring Unavailable Lesly Chappell Attending Unavailable Dane, Susie Primary Care Unavailable Dane, Susie Referring Unavailable Caleb Velanah Attending Unavailable Lesly Chappell Attending Unavailable [place], Susie Primary Care Unavailable Miedel, Susie Primary Care Unavailable Lesly Chappell Attending Unavailable Lesly Chappell Referring Unavailable Lesly Chappell Attending Unavailable [place], Susie Primary Care Unavailable Lesly Chappell Referring Unavailable Miedel, Susie Primary Care Unavailable Lesly Chappell Attending Unavailable Allergies Allergy Classification Reported Allergen(s) Allergy Type Date of Onset Reaction(s) Facility (5 sources) Sulfonamides (Antibiotic) Propensity to adverse reactions 6 Rash [facility] Work Phone: (7 sources) Sulfonamides (Antibiotic) Allergy to substance 2 Rash [facility] (1 source) Sulfonamides (Antibiotic) Drug allergy (disorder) 4 [facility] Repository Medications Current Medications Medication Drug Class(es) Dates Sig (Normalized) Sig (Original) acetaminophen 325 mg / oxyCODONE hydrochloride 5 mg oral tablet (4 sources) Opioid Agonist Start: 11-20-2023 take 1 tablet by mouth every eight hours as needed for pain Oxycodone-Acetami nophen (Percocet) 5-325 mg tablet Active 1 {tbl} PO Q8H as needed for pain 9 3 0 November 20, 2023 Calculus of kidney Calculus of kidney Start: 10-30-2023 End: 11-14-2023 Oxycodone-Acetaminophen (Per cocet) 5-325 mg tablet Discontinued 1 {tbl} PO Q8H as needed for pain 20 5 0 October 30, 2023 November 14, 2023 12:59pm Calculus of kidney Calculus of kidney cephalexin 500 mg oral capsule (10 sources) Cephalosporin Antibacterial Start: 10-30-2023 take 1 capsule by mouth every twelve hours Cephalexin 500 mg capsule Active 500 mg PO EVERY 12 HOURS 6 3 0 November 20, 2023 12:00am post-operative Start: 07-27-2023 End: 10-23-2023 take 1 capsule by mouth every twelve hours Cephalexin 500 mg capsule Discontinued 500 mg PO EVERY 12 HOURS 14 0 July 27, 2023 12:00am October 23, 2023 8:59am Multivitamin (Daily Multi-Vitamin) tablet (2 sources) Start: 10-23-2023 Multivitamin (Daily Multi-Vitamin) tablet Active 1 {tbl} PO DAILY October 23, 2023 12:00am ondansetron 4 mg disintegrating oral tablet (2 sources) Serotonin-3 Receptor Antagonist Start: 10-30-2023 take 1 tablet by mouth every eight hours as needed for nausea and vomiting Ondansetron 4 mg tablet,disintegratin g Active 4 mg PO Q8H as needed for nausea and vomiting 10 0 October 30, 2023 12:00am phenazopyridine hydrochloride 200 mg oral tablet (2 sources) Start: 10-30-2023 take 1 tablet by mouth three times daily as needed for muscle spasms Phenazopyridine (Pyridium) 200 mg tablet Active 200 mg PO 3 TIMES DAILY NEEDED as needed for Bladder Spasms 30 7 3 October 30, 2023 12:00am Completed/Discontinued Medications Medication Drug Class(es) Dates Sig (Normalized) Sig (Original) amoxicillin 500 mg oral capsule (7 sources) Penicillin-class Antibacterial Start: 12-21-2020 End: 12-31-2020 take 2 capsules by mouth twice daily Amoxicillin 500 mg capsule Discontinued 1000 mg PO TWICE A DAY 40 10 0 December 21, 2020 12:00am December 30, 2020 12:00am December 31, 2020 12:01am Start: 12-21-2020 End: 12-31-2020 take 1000 mg by mouth twice daily Amoxicillin Discontinued 1000 MG PO TWICE A DAY 40 10 December 21, 2020 12:00am December 31, 2020 12:01am amoxicillin 875 mg / clavulanate 125 mg oral tablet (7 sources) Penicillin-class Antibacterial Start: 04-02-2022 End: 04-12-2022 Amoxicillin-Pot Clavulanate 875-125 mg tablet Discontinued 1 {tbl} PO Q12H 20 10 April 02, 2022 1:00am April 11, 2022 1:00am April 12, 2022 1:03am Acute sinusitis, unspecified Start: 04-02-2022 End: 04-12-2022 take 1 tablet by mouth every twelve hours Amoxicillin-Pot Clavulanate Discontinued 1 TABLET PO Q12H 20 April 02, 2022 1:00am April 12, 2022 1:03am azithromycin 250 mg oral tablet (7 sources) Macrolide Antimicrobial Start: 04-21-2019 End: 12-21-2020 Azithromycin 250 mg tablet Discontinued 250 mg PO daily 6 April 21, 2019 1:00am December 21, 2020 2:23pm 2 tablets today, then 1 tablet daily on days 2 through 5; recommend not starting until 04/28/19 and only if still symptomatic benzonatate 200 mg oral capsule (7 sources) Non-narcotic Antitussive Start: 04-21-2019 End: 12-21-2020 take 1 capsule by mouth three times daily as needed for cough Benzonatate 200 mg capsule Discontinued 200 mg PO THREE TIMES A DAY as needed for cough 20 0 April 21, 2019 1:00am December 21, 2020 2:23pm calcium carbonate 600 mg / cholecalciferol 0.01 mg oral tablet (7 sources) Vitamin D Start: 09-16-2014 End: 04-21-2019 Calcium Carbonate-Vitamin D3 1 TAB tablet Discontinued 1 {tbl} PO DAILY@799September 16, 2014 12:00am April 21, 2019 1:49pm Start: 09-16-2014 End: 04-21-2019 take 1 tablet by mouth once daily Calcium Carbonate-Vitamin D3 Discontinued 1 TABLET PO DAILY@799September 16, 2014 12:00am April 21, 2019 1:49pm Calcium Carbonate / vitamin D3 (5 sources) Start: 09-10-2007 calcium carbonate/vitamin d3(CALCIUM 500 WITH VITAMIN D 500 MG-125 UNIT TAB) Take one(1) tablet twice daily. 0 09/10/2007 Active Comment on above: Take one(1) tablet t wice daily. methylPREDNISolone 4 mg oral tablet (7 sources) Corticosteroid Start: 04-02-2022 End: 04-08-2022 take 1 tablet by mouth once Methylprednisolone (Medrol (Luis Antonio)) 4 mg tablets,dose pack Discontinued 4 mg PO per package directions 21 6 0 April 02, 2022 1:00am April 07, 2022 1:00am April 08, 2022 1:03am morphine sulfate 15 mg extended release oral tablet (4 sources) Opioid Agonist Start: 08-01-2021 take 1 tablet by mouth every twelve hours for pain morphine SR (MS CONTIN) 15 mg 12 hr tablet Indications: Traumatic complete tear of left rotator cuff, initial encounter Take 1 tablet by mouth every 12 hours for 3 days. for pain 6 tablet 0 08/01/2021 Active Comment on above: Take 1 tablet by tj every 12 hours for 3 days. for pain Multivitamin With Folic Acid (5 sources) Start: 09-16-2014 End: 12-21-2020 take 1 tablet by mouth once daily Multivitamin With Folic Acid Discontinued 1 TABLET PO DAILY September 16, 2014 12:00am December 21, 2020 2:23pm Start: 09-16-2014 End: 12-21-2020 take 1 tablet by mouth once daily Multivitamin With Folic Acid Discontinued 1 TABLET PO DAILY September 15, 2014 11:00pm December 21, 2020 1:23pm Multivitamin With Folic Acid 1 TABLET tablet (2 sources) Start: 09-16-2014 End: 12-21-2020 take 1 tablet by mouth once daily Multivitamin With Folic Acid 1 TABLET tablet Discontinued 1 {tbl} PO DAILY September 16, 2014 12:00am December 21, 2020 2:23pm Semaglutide (Weight Loss) (2 sources) Start: 10-23-2023 End: 11-14-2023 Semaglutide (Weight Loss) 1 mg/0.5 mL pen injector Discontinued 1 mg SC Q7D October 23, 2023 12:00am November 14, 2023 12:59pm sertraline 50 mg oral tablet (12 sources) Serotonin Reuptake Inhibitor Start: 05-16-2021 End: 10-23-2023 Sertraline 50 mg tablet Discontinued NMA PO May 16, 2021 1:00am October 23, 2023 9:00am Start: 05-16-2021 Sertraline Act ella EACH PO May 16, 2021 1:00am Comment on above: Take 50 mg by mouth once daily. spironolactone 100 mg oral tablet (7 sources) Aldosterone Antagonist Start: 04-21-2019 End: 12-21-2020 Spironolactone 100 mg tablet Discontinued PO 90 0 April 21, 2019 1:00am December 21, 2020 2:23pm Start: 04-21-2019 End: 12-21-2020 Spironolactone Discontinued PO 90 April 21, 2019 1:00am December 21, 2020 2:23pm therapeutic multivitamin ORAL Tab (5 sources) Start: 09-05-2006 take 1 tablet by mouth once daily therapeutic multivitamin ORAL Tab Take one(1) tablet daily. 0 09/05/2006 Active Comment on above: Take one(1) tablet d aily. Problems Active Problems Problem Classification Problem Date Documented Da te Episodic/Chronic Acute bronchitis (7 sources) Acute bronchitis; Translations: [Acute bronchitis, unspecified] 04-02-2022 Episodic Calculus of urinary tract (4 sources) Kidney stone; Translations: [Calculus of kidney] Onset: 06-24-2024 10-30-2023 Episodic Chronic obstructive pulmonary disease and bronchiectasis (7 sources) Bronchitis; Translations: [Bronchitis, not specified as acute or chronic] 04-21-2019 Episodic Genitourinary symptoms and ill-defined conditions (1 source) Genuine stress incontinence; Translations: [Stress incontinence (female) (male)] 12-07-2024 Chronic Menopausal disorders (1 source) Atrophy of vagina; Translations: [Postmenopausal atrophic vaginitis] 12-07-2024 Chronic Other connective tissue disease (7 sources) Tear of left rotator cuff; Translations: [Unspecified rotator cuff tear or rupture of left shoulder, not specified as traumatic] 07-11-2021 Episodic Other diseases of bladder and urethra (1 source) Urethral stricture; Translations: [Urethral stricture, unspecified] 12-07-2024 Episodic Other female genital disorders (1 source) Superficial pain on intercourse; Translations: [Superficial (introital) dyspareunia] 12-07-2024 Chronic Other injuries and conditions due to external causes (7 sources) Injury of left rotator cuff; Translations: [Unspecified injury of muscle(s) and tendon(s) of the rotator cuff of left shoulder, initial encounter] 05-16-2021 Episodic Other non-traumatic joint disorders (7 sources) Derangement of shoulder; Translations: [Other specific joint derangements of unspecified shoulder, not elsewhere classified] 05-16-2021 Chronic Other non-traumatic joint disorders (7 sources) Shoulder pain; Translations: [Pain in unspecified shoulder] 05-16-2021 Episodic Other screening for suspected conditions (not mental disorders or infectious disease) (3 sources) Patient encounter status; Translations: [Encounter for screening mammogram for malignant neoplasm of breast] Onset: 01-05-2025 Episodic Other upper respiratory infections (7 sources) Acute maxillary sinusitis; Translations: [Acute maxillary sinusitis, unspecified] 12-21-2020 Episodic Sprains and strains (14 sources) Traumatic rupture of rotator cuff; Translations: [Strain of muscle(s) and tendon(s) of the rotator cuff of left shoulder, initial encounter] Onset: 07-18-2021 Episodic Past or Other Problems Problem Classification Problem Date Documented Date Episodic/Chronic Genitourinary symptoms and ill-defined conditions (3 sources) Isai hematuria; Translations: [Gross hematuria] Onset: 06-02-2024 12-07-2024 Episodic Other aftercare (5 sources) Drug therapy finding; Translations: [Other residential (current) drug therapy] Onset: 07-18-2021 07-18-2021 Episodic Other circulatory disease (5 sources) History of paroxysmal supraventricular tachycardia; Translations: [Personal history of other diseases of the circulatory system] Onset: 07-18-2021 07-18-2021 Episodic Urinary tract infections (8 sources) Acute hemorrhagic cystitis; Translations: [Acute cystitis with hematuria] Onset: 07-08-2024 07-27-2023 Episodic Results Test Name Value Interpretation Reference Range Facility Calculi, Urinary w / Photoon 01-17-2025 2,8 Dihydroxyad TNP Normal . [facility] Comment on above: Performed By: #### L 350.1000 #### [facility] [address] [place], [address] AMM ACID URATE TNP Normal . [facility] Comment on above: Performed By: #### L 350.1000 #### [facility] [address] [place], [address] Bilirubin Ql (U) TNP Normal . [facility] Comment on above: Performed By: #### L 350.1000 #### [facility] [address] [place], [address] [place] BILIRUBINATE TNP Normal . [facility] Comment on above: Performed By: #### L 350.1000 #### [facility] [address] [place], [address] CA CARBONATE TNP Normal . [facility] Comment on above: Performed By: #### L 350.1000 #### [facility] [address] [place], [address] CA HYDROG PHOS TNP Normal . [facility] Comment on above: Performed By: #### L 350.1000 #### [facility] [address] [place], [address] CA OXAL DIHYDR 30 Normal . [facility] Comment on above: Result Comment: Perf ormed at: [facility] [address] [id number] Entry Level Sales Representative: Anamika Long PhD, Phone: [phone] Performed By: #### L 350.1000 #### [facility] [address] [place], [address] CA OXAL MONOHYD 70 Normal . [facility] Comment on above: Performed By: #### L 350.1000 #### [facility] [address] [place], [address] CA Palmitate TNP Normal . [facility] Comment on above: Performed By: #### L 350.1000 #### [facility] [address] [place], [address] CA PHOS (hydro) TNP Normal . [facility] Comment on above: Performed By: #### L 350.1000 #### [facility] [address] [place], [address] CA PHOSPHATE TNP Normal . [facility] Comment on above: Performed By: #### L 350.1000 #### [facility] [address] [place], [address] CA Stearate TNP Normal . [facility] Comment on above: Performed By: #### L 350.1000 #### [facility] [address] [place], [address] CHOLESTEROL TNP Normal . [facility] Comment on above: Performed By: #### L 350.1000 #### [facility] [address] [place], [address] Color (U) Brown Normal . [facility] Comment on above: Performed By: #### L 350.1000 #### [facility] [address] [place], [address] COMMENT TNP Normal . [facility] Comment on above: Performed By: #### L 350.1000 #### [facility] [address] [place], [address] CYSTINE TNP Normal . [facility] Comment on above: Performed By: #### L 350.1000 #### [facility] [address] [place], [address] Drug/Metabolite TNP Normal . [facility] Comment on above: Performed By: #### L 350.1000 #### [facility] [address] [place], [address] MAG ZA PHOS TNP Normal . [facility] Comment on above: Performed By: #### L 350.1000 #### [facility] [address] [place], [address] NA ACID URATE TNP Normal . [facility] Comment on above: Performed By: #### L 350.1000 #### [facility] [address] [place], [address] NEWBERYITE TNP Normal . [facility] Comment on above: Performed By: #### L 350.1000 #### [facility] [address] [place], [address] Other Component TNP Normal . [facility] Comment on above: Performed By: #### L 350.1000 #### [facility] [address] [place], [address] SIZE 5x3 Normal . [facility] Comment on above: Result Comment: Sing le piece received. Performed By: #### L 350.1000 #### [facility] [address] [place], [address] SOURCE Comment Normal . [facility] Comment on above: Result Comment: Not provided Performed By: #### L 350.1000 #### [facility] [address] [place], [address] TRIAMTERENE TNP Normal . [facility] Comment on above: Performed By: #### L 350.1000 #### [facility] [address] [place], [address] URIC ACID TNP Normal . [facility] Comment on above: Performed By: #### L 350.1000 #### [facility] [address] [place], [address] URIC ACID DIHYD TNP Normal . [facility] Comment on above: Performed By: #### L 350.1000 #### [facility] [address] [place], [address] WEIGHT 19 mg Normal . [facility] Comment on above: Performed By: #### L 350.1000 #### [facility] [address] [place], [address] XANTHINE TNP Normal . [facility] Comment on above: Performed By: #### L 350.1000 #### [facility] [address] [place], [address] Breast imaging reportOrdered By: Bernard Lehamn on 12-29-2024 Study report [facility] Services [address] [place] [address] SCRN MAMM (CAD)W/MAYKEL BILAT MR#: [id number] Acct: [id number] Name: SABINA LOZANO Rep #: [id number] : 1960 F 64 From: Sravan Lehman MD PCP: Dr. Susie Vela MD Status: REG CLI Study:SCRN MAMM (CAD)W/MAYKEL BILAT Date of Exa m: 12/29/24 Exam# [id number] Ordering Dr: Nilesh Vela MD EXAM: SCRN MAMM (CAD)W/MAYKEL BILAT DATE: 12/29/2024 CLINICAL HISTORY: F, Age 64 y/o , SCREENING Aunt with breast cancer. TECHNIQUE: SCRN MAMM (CAD)W/MAYKEL BILAT COMPARISON: Prior exam(s) dated prior study dated October 08, 2023.. FINDINGS: TISSUE DENSITY: The breasts are heterogeneously dense, which may obscure small masses. Bilateral Breast Mammographic Findings: No significant masses, calcifications or other abnormalities are identified. Stable bilateral fat containing axillary lymph nodes. No suspicious masses, areas of developing architectural distortion, or suspicious calcifications. There has been no significant interval change. BI/SCRN MAMM (CAD)W/MAYKEL BILAT IMPRESSION: Stable examination. OVERALL FINAL ASSESSMENT BI-RADS 2: BENIGN RECOMMENDATION: Routine annual follow-up in 1 Year A letter with findings and recommendations will be mailed to the patient. Reading Location: [id number] CC: Dr. Susie Vela MD ~ Composite Bond Worker: Signed [facility] SCRN MAMM (CAD)W/MAYKEL BILATo n 12-29-2024 SCRN MAMM (CAD)W/MAYKEL BILAT [facility] Services [address] [place] [id number] SCRN MAMM (CAD)W/MAYKEL BILAT MR#: [id number] Acct: [id number] Name: SABINA LOZANO Rep #: [id number] : 1960 F 64 From: Bernard blanco MD PCP: Dr. Susie Vela MD Status: [facility] Study: SCRN MAMM (CAD)W/MAYKEL BILAT Date of Exam: 12/11 Exam# [id number] Ordering Dr: Susie Vela MD EXAM: SCRN MAMM (CAD)W/MAYKEL BILAT DATE: 12/29/2024 CLINICAL HISTORY: F, Age 64 y/o , SCREENING Aunt with breast cancer. TECHNIQUE: SCRN MAMM (CAD)W/MAYKEL BILAT COMPARISON: Prior exam(s) dated prior study dated October 08, 2023.. FINDINGS: TISSUE DENSITY: The breasts are heterogeneously dense, which may obscure small masses. Bilateral Breast Mammographic Findings: No significant masses, calcifications or other abnormalities are identified. Stable bilateral fat containing axillary lymph nodes. No suspicious masses, areas of developing architectural distortion, or suspicious calcifications. There has been no significant interval change. BI/SCRN MAMM (CAD)W/MAYKEL BILAT IMPRESSION: Stable examination. OVERALL FINAL ASSESSMENT BI-RADS 2: BENIGN RECOMMENDATION: Routine annual follow-up in 1 Year A letter with findings and recommendations will be mailed to the patient. Reading Location: [id number] CC: Dr. Susie Vela MD Composite Bond Worker: Signed Normal [facility] PROGESTERONE 4317on 10-08-19 25 PROGESTERONE 0.1 ng/mL Normal . [facility] Comment on above: Order Comment: URINE URINE Result Comment: Foll icular phase 0.1 - 0.9 Luteal phase 1.8 - 23.9 Ovulation phase 0.1 - 12.0 First trimester 11.0 - 44.3 Second trimester 25.4 - 83.3 Third trimester 58.7 - 214.0 Postmenopausal 0.0 - 0.1 Performed at: [facility] [id number] Entry Level Sales Representative: Anam Bennett PhD, Phone: [phone] Performed By: #### L 350.4652 #### [facility] [address] [place] [address], [address] Absolute lymphocyte countOrd ered By: Susie Vela on 10-06-2024 Lymphocytes Auto (Unsp spec) [#/Vol] 1.54 10*3/uL 0.83-4.51 [facility] Absolute neutrophil countOrd ered By: Susie Vela on 10-06-2024 Neutrophils (Bld) [#/Vol] 3.5 10*3/uL 2.0-7.7 [facility] Anion gap in Serum or Plasma Ordered By: Susie Vela on 10-06-2024 Anion gap [Moles/Vol] 10 mmol/L 5-15 [facility] Automated lymphocyte count a s percentage of total leukocytesOrdered By: Susie Springoma on 10-06-2024 Lymphocytes/100 WBC Auto (Unsp spec) 26.2 % - [facility] BUN/creatinine ratioOrdered By: Susie Springoma on 10-06-2024 Urea nitrogen/Creatinine [Mass ratio] 24.3 mg/mg High 10- [facility] Basophil percentageOrdered B y: Susie Londonooma on 10-06-2024 Basophils/100 WBC (Bld) 0.7 % 0-[address] [facility] Bilirubin, totalOrdered By: Susie Springoma on 10-06-2024 Bilirubin [Mass/Vol] 0.36 mg/dL 0.00-1.30 [facility] CBC W/Diff, Automatedon 09-10 Absolute Lymph 1.54 X10 3/uL Normal 0.83-4.51 [facility] Comment on above: Performed By: #### L 501.9520, L801.2600, L3300.1750, L500.4100, L500.4050, L100.0100 #### [facility] [address] [place], [address] Absolute Neut 3.5 X10 3/uL Normal 2.0-7.7 [facility] Comment on above: Performed By: #### L 501.9520, L801.2600, L3300.1750, L500.4100, L500.4050, L100.0100 #### [facility] [address] [place], [address] Basophils/100 WBC (Bld) 0.7 % Normal 0-[address] [facility] Comment on above: Performed By: #### L 501.9520, L801.2600, L3300.1750, L500.4100, L500.4050, L100.0100 #### [facility] [address] [place], [address] Eosinophils/100 WBC (Bld) 7.3 % High 0-5 [facility] Comment on above: Performed By: #### L 501.9520, L801.2600, L3300.1750, L500.4100, L500.4050, L100.0100 #### [facility] [address] [place], [place], [id number] ([phone] Erythrocyte distribution width (RBC) [Ratio] 12.3 % Normal 11.6-14.6 [facility] Comment on above: Performed By: #### L 501.9520, L801.2600, L3300.1750, L500.4100, L500.4050, L100.0100 #### [facility] [address] [place], [address] Hematocrit (Bld) [Volume fraction] 42.9 % Normal 37-47 [facility] Comment on above: Performed By: #### L 501.9520, L801.2600, L3300.1750, L500.4100, L500.4050, L100.0100 #### [facility] [address] [place], [address] Hemoglobin (Bld) [Mass/Vol] 14.4 g/dL Normal 12.0-15.0 [facility] Comment on above: Performed By: #### L 501.9520, L801.2600, L3300.1750, L500.4100, L500.4050, L100.0100 #### [facility] [address] [place], [address] IG% 0.300 Normal 0.0-0.9 [facility] Comment on above: Result Comment: IG% - Immature Granulocytes (promyelocytes, myelocytes and metamyelocytes) > 1% indicates that a LEFT SHIFT is Present. Performed By: #### L 501.9520, L801.2600, L3300.1750, L500.4100, L500.4050, L100.0100 #### [facility] [address] [place], [address] Lymphocytes/100 WBC (Bld) 26.2 % Normal 19-41 [facility] Comment on above: Performed By: #### L 501.9520, L801.2600, L3300.1750, L500.4100, L500.4050, L100.0100 #### [facility] [address] [place], [address] MCH (RBC) [Entitic mass] 31.6 pg Normal 27.0-32.0 [facility] Comment on above: Performed By: #### L 501.9520, L801.2600, L3300.1750, L500.4100, L500.4050, L100.0100 #### [facility] [address] [place], [address] MCHC (RBC) [Mass/Vol] 33.6 g/dL Normal 32-36 [facility] Comment on above: Performed By: #### L 501.9520, L801.2600, L3300.1750, L500.4100, L500.4050, L100.0100 #### [facility] [address] [place], [address] MCV (RBC) [Entitic vol] 94.3 fL Normal 81-99 [facility] Comment on above: Performed By: #### L 501.9520, L801.2600, L3300.1750, L500.4100, L500.4050, L100.0100 #### [facility] [address] [place], [address] Monocytes/100 WBC (Bld) 6.0 % Normal 0-10 [facility] Comment on above: Performed By: #### L 501.9520, L801.2600, L3300.1750, L500.4100, L500.4050, L100.0100 #### [facility] [address] [place], [address] Neutrophils/100 WBC (Bld) 59.5 % Normal 47-70 [facility] Comment on above: Performed By: #### L 501.9520, L801.2600, L3300.1750, L500.4100, L500.4050, L100.0100 #### [facility] [address] [place], [address] Nucleated RBC (Bld) [#/Vol] 0 10*3/uL Normal 0-5 [facility] Comment on above: Performed By: #### L 501.9520, L801.2600, L3300.1750, L500.4100, L500.4050, L100.0100 #### [facility] [address] [place], [address] Platelet mean volume (Bld) [Entitic vol] 9.9 fL Normal 6.2-12.0 [facility] Comment on above: Performed By: #### L 501.9520, L801.2600, L3300.1750, L500.4100, L500.4050, L100.0100 #### [facility] [address] [place], [address] Platelets (Bld) [#/Vol] 269 10*3/uL Normal 150-450 [facility] Comment on above: Performed By: #### L 501.9520, L801.2600, L3300.1750, L500.4100, L500.4050, L100.0100 #### [facility] [address] [place], [address] RBC (Bld) [#/Vol] 4.55 10*6/uL Normal 4.2-5.4 [facility] Comment on above: Performed By: #### L 501.9520, L801.2600, L3300.1750, L500.4100, L500.4050, L100.0100 #### [facility] [address] [place], [place], [id number] RDW SD 43.2 fl Normal 35.1-43.9 [facility] Comment on above: Performed By: #### L 501.9520, L801.2600, L3300.1750, L500.4100, L500.4050, L100.0100 #### [facility] [address] [place], [address] WBC (Bld) [#/Vol] 5.9 10*3/uL Normal 4.4-11.0 [facility] Comment on above: Performed By: #### L 501.9520, L801.2600, L3300.1750, L500.4100, L500.4050, L100.0100 #### [facility] [address] [place], [place], [id number] Calculated very low density lipoprotein (VLDL) cholesterol measurementOrdered By: Susie Vela on 10-06-2024 Calculated very low density lipoprotein (VLDL) cholesterol measurement 30 mg/dL 5-40 [facility] Carbon dioxide, total [Moles /volume] in Central venous bloodOrdered By: Susie Vela on 10-06-2024 CO2 [Moles/Vol] 25.7 mmol/L 21.0-32.0 [facility] Chloride assayOrdered By: Garret Vela on 10-06-2024 Chloride [Moles/Vol] 105 mmol/L 98-108 [facility] Comprehensive Metabolic Prof ilon 10-06-2024 Albumin [Mass/Vol] 4.4 g/dL Normal 3.4-4.8 [facility] Comment on above: Performed By: #### L 501.9520, L801.2600, L3300.1750, L500.4100, L500.4050, L100.0100 #### [facility] [address] [place], [address] Albumin/Globulin [Mass ratio] 1.6 {ratio} Normal 0.9-2.4 [facility] Comment on above: Performed By: #### L 501.9520, L801.2600, L3300.1750, L500.4100, L500.4050, L100.0100 #### [facility] [address] [place], [address] ALK PHOS 94 U/L Normal 35-104 [facility] Comment on above: Performed By: #### L 501.9520, L801.2600, L3300.1750, L500.4100, L500.4050, L100.0100 #### [facility] [address] [place], [address] ALT [Catalytic activity/Vol] 18 U/L Normal <=34 [facility] Comment on above: Performed By: #### L 501.9520, L801.2600, L3300.1750, L500.4100, L500.4050, L100.0100 #### [facility] [address] [place], [address] AST [Catalytic activity/Vol] 19 U/L Normal <=31 [facility] Comment on above: Performed By: #### L 501.9520, L801.2600, L3300.1750, L500.4100, L500.4050, L100.0100 #### [facility] [address] [place], [address] Bilirubin [Mass/Vol] 0.36 mg/dL Normal 0.00-1.30 [facility] Comment on above: Performed By: #### L 501.9520, L801.2600, L3300.1750, L500.4100, L500.4050, L100.0100 #### [facility] [address] [place], [address] BUN/CRE 24.3 RATIO High 10-20 [facility] Comment on above: Performed By: #### L 501.9520, L801.2600, L3300.1750, L500.4100, L500.4050, L100.0100 #### [facility] [address] [place], [address] Calcium [Mass/Vol] 9.5 mg/dL Normal 7.6-11.0 [facility] Comment on above: Performed By: #### L 501.9520, L801.2600, L3300.1750, L500.4100, L500.4050, L100.0100 #### [facility] [address] [place], [address] Chloride [Moles/Vol] 105 mmol/L Normal 98-108 [facility] Comment on above: Performed By: #### L 501.9520, L801.2600, L3300.1750, L500.4100, L500.4050, L100.0100 #### [facility] [address] [place], [address] CO2 [Moles/Vol] 25.7 mmol/L Normal 21.0-32.0 [facility] Comment on above: Performed By: #### L 501.9520, L801.2600, L3300.1750, L500.4100, L500.4050, L100.0100 #### [facility] [address] [place], [address] Creatinine [Mass/Vol] 0.65 mg/dL Low 0.70-1.20 [facility] Comment on above: Performed By: #### L 501.9520, L801.2600, L3300.1750, L500.4100, L500.4050, L100.0100 #### [facility] [address] [place], [address] GAP 10 Normal 5-15 [facility] Comment on above: Performed By: #### L 501.9520, L801.2600, L3300.1750, L500.4100, L500.4050, L100.0100 #### [facility] [address] [place], [address] GFR/1.73 sq M.predicted among non-blacks MDRD (S/P/Bld) [Vol rate/Area] 100 mL/min/{1.73_m2} Normal >60 [facility] Comment on above: Result Comment: mL/m in/1.73m2 CKD-EPI Creatinine Equation (2020) Performed By: #### L 501.9520, L801.2600, L3300.1750, L500.4100, L500.4050, L100.0100 #### [facility] [address] [place], [address] Globulin (S) [Mass/Vol] 2.8 g/dL Normal 2.2-4.2 [facility] Comment on above: Performed By: #### L 501.9520, L801.2600, L3300.1750, L500.4100, L500.4050, L100.0100 #### [facility] [address] [place], [address] Glucose [Mass/Vol] 106 mg/dL High 70-99 [facility] Comment on above: Performed By: #### L 501.9520, L801.2600, L3300.1750, L500.4100, L500.4050, L100.0100 #### [facility] [address] [place], [address] Potassium [Moles/Vol] 4.5 mmol/L Normal 3.3-5.1 [facility] Comment on above: Performed By: #### L 501.9520, L801.2600, L3300.1750, L500.4100, L500.4050, L100.0100 #### [facility] [address] [place], [address] Sodium [Moles/Vol] 141 mmol/L Normal 133-145 [facility] Comment on above: Performed By: #### L 501.9520, L801.2600, L3300.1750, L500.4100, L500.4050, L100.0100 #### [facility] [address] [place], [address] T PROT 7.1 g/dL Normal 5.9-8.4 [facility] Comment on above: Performed By: #### L 501.9520, L801.2600, L3300.1750, L500.4100, L500.4050, L100.0100 #### [facility] [address] [place], [address] Urea nitrogen [Mass/Vol] 16 mg/dL Normal 4-19 [facility] Comment on above: Performed By: #### L 501.9520, L801.2600, L3300.1750, L500.4100, L500.4050, L100.0100 #### [facility] [address] [place], [address] Eosinophil percentageOrdered By: Susie Vela on 10-06-2024 Eosinophils/100 WBC (Bld) 7.3 % High 0-5 [facility] Erythrocyte distribution wid th ratioOrdered By: Susie Vela on 10-06-2024 Erythrocyte distribution width (RBC) [Ratio] 12.3 % 11.6-14.6 [facility] Erythrocyte distribution wid th standard deviationOrdered By: Susie Vela on 10-06-2024 Erythrocyte distribution width (RBC) [Ratio] 43.2 fl 35.1-43.9 [facility] Estradiolon 10-06-2024 ESTRADIOL 7.3 pg/mL Normal [facility] Comment on above: Result Comment: FEMA LES ADULT FEMALE: Premenopausal: 15-350 pg/mL(E2 levels vary widely through the menstrual cycle) Postmenopausal: <10 pg/mL GARFIELD STAGES MEAN AGE REFERENCE RANGES Stage I(>14 days and prepubertal) 7.1 years Undetectable-20 pg/mLL Stage II 10.5 years Undetectable-24 pg/mL Stage III 11.6 years Undetectable-60 pg/mL Stage IV 12.3 years 15-85 pg/mL Stage V 14.5 years 15-350 pg/mL Puberty onset (transition from Garfield stage I to Garfield stage II) occurs for girls at a median age of 10.5 (/- 2) years. There is evidence that it may occur up to 1 year earlier in obese girls and in girls. Progression through Garfield stages is variable. Garfield stage V (adult) should be reached by age 18. Performed By: #### L 350.1000 #### [facility] Laboratory [facility] [place], [address] Glomerular filtration rate ( GFR) estimation/1.73 sq m using serum, plasma, or whole bOrdered By: Susie Vela on 10-06-2024 GFR/1.73 sq M.predicted among non-blacks MDRD (S/P/Bld) [Vol rate/Area] 100 mL/min/{1.73_m2} >60 [facility] Comment on above: mL/min/1.73m2 CKD-EP I Creatinine Equation (2020) Hematocrit Auto (Bld) [Volum e fraction]Ordered By: Susie Vela on 10-06-2024 Hematocrit (Bld) [Volume fraction] 42.9 % 37-47 [facility] Hemoglobin measurementOrdere d By: Susie Vela on 10-06-2024 Hemoglobin (Bld) [Mass/Vol] 14.4 g/dL 12.0-15.0 [facility] Immature granulocytes/100 WB C Auto (Bld)Ordered By: Susie Vela on 10-06-2024 Immature granulocytes/100 WBC (Bld) 0.300 % 0.0-0.9 [facility] Comment on above: IG% - Immature Granu locytes (promyelocytes, myelocytes and metamyelocytes) > 1% indicates that a LEFT SHIFT is Present. LDL calc ser/plasOrdered By: Susie Vela on 10-06-2024 Cholesterol in LDL [Mass/Vol] 126 mg/dL [facility] Comment on above: Wtsgmmeccm=354-128 m g/dL & Higher Jumi=561 mg/dL or greater Laboratory - Chemistry and C hemistry - challengeOrdered By: Susie Vela on 10-06-2024 AST [Catalytic activity/Vol] 19 U/L <32 [facility] Lipid Profileon 10-06-2024 CHOL:HDL 3.13 Normal [facility] Comment on above: Performed By: #### L 501.9520, L801.2600, L3300.1750, L500.4100, L500.4050, L100.0100 #### [facility] [address] [place], [place], [id number] ([phone]) Cholesterol [Mass/Vol] 229 mg/dL High <=200 [facility] Comment on above: Result Comment: Chol esterol level, Desirable <200 mg/dL Borderline high cholesterol 200-239 mg/dL High cholesterol >=240 mg/dL Recommendations of the NCEP Adult Treatment Panel for the following risk-cutoff thresholds for the [place] population. Performed By: #### L 501.9520, L801.2600, L3300.1750, L500.4100, L500.4050, L100.0100 #### [facility] [address] [place], [place], [id number] ([phone]) Cholesterol in HDL [Mass/Vol] 73 mg/dL Normal [facility] Comment on above: Result Comment: Brittany onal Cholesterol Education Program (NCEP) guidelines: <40 mg/dL: Low HDL-cholesterol (major risk factor for CHD) >= 60 mg/dL: High HDL-cholesterol (negative risk factor for CHD) HDL-cholesterol is affected by a number of factors, e.g. smoking, exercise, hormones, sex and age. Performed By: #### L 501.9520, L801.2600, L3300.1750, L500.4100, L500.4050, L100.0100 #### [facility] [address] [place], [address] Cholesterol in LDL [Mass/Vol] 126 mg/dL Normal [facility] Comment on above: Result Comment: Bord wplyiq=454-759 mg/dL Higher Hfzk=196 mg/dL or greater Performed By: #### L 501.9520, L801.2600, L3300.1750, L500.4100, L500.4050, L100.0100 #### [facility] [address] [place], [address] Cholesterol in VLDL [Mass/Vol] 30 mg/dL Normal 5-40 [facility] Comment on above: Performed By: #### L 501.9520, L801.2600, L3300.1750, L500.4100, L500.4050, L100.0100 #### [facility] [address] [place], [address] Triglyceride [Mass/Vol] 151 mg/dL Normal [facility] Comment on above: Result Comment: The drugs N-Acetylcysteine and Metamizole may falsely depress this assay. Normal range: <150 mg/dL Borderline High: 150-199 mg/dL High: 200-499 mg/dL Very High: >500 mg/dL Performed By: #### L 501.9520, L801.2600, L3300.1750, L500.4100, L500.4050, L100.0100 #### [facility] [address] [place], [address] MCV (mean corpuscular volume ) determinationOrdered By: Susie Vela on 10-06-2024 MCV (RBC) [Entitic vol] 94.3 fL 81-99 [facility] Mean corpuscular hemoglobin (MCH) determinationOrdered By: Susie Vela on 10-06-2024 MCH (RBC) [Entitic mass] 31.6 pg 27.0-32.0 [facility] Mean corpuscular hemoglobin concentration (MCHC) determinationOrdered By: Susie Vela on 10-06-2024 MCHC (RBC) [Mass/Vol] 33.6 g/dL 32-36 [facility] Mean platelet volume determi nationOrdered By: Susie Vela on 10-06-2024 Platelet mean volume (Bld) [Entitic vol] 9.9 fL 6.2-12.0 [facility] Monocyte percentageOrdered B y: Susie Vela on 10-06-2024 Monocytes/100 WBC (Bld) 6.0 % 0-[address] [facility] Neutrophil percentageOrdered By: Susie Vela on 10-06-2024 Neutrophils/100 WBC (Bld) 59.5 % 47-70 [facility] Nucleated red blood cell per centageOrdered By: Susie Vela on 10-06-2024 Nucleated RBC/100 WBC (Bld) [Ratio] 0 % 0-5 [facility] Platelet countOrdered By: Garret Vela on 10-06-2024 Platelets (Bld) [#/Vol] 269 10*3/uL 150-450 [facility] Potassium measurement (mass/ volume)Ordered By: Susie Vela on 10-06-2024 Potassium (Unsp spec) [Mass/Vol] 4.5 mmol/L 3.3-5.1 [facility] RBC Auto (Bld) [#/Vol]Ordere d By: Susie Vela on 10-06-2024 RBC (Bld) [#/Vol] 4.55 10*6/uL 4.2-5.4 [facility] Screening total cholesterol/ high density lipoprotein (HDL) cholesterol ratioOrdered By: Susie Vela on 10-06-2024 Cholesterol.total/Choles terol in HDL [Mass ratio] 3.13 {ratio} [facility] Serum creatinine measurement (mass/volume)Ordered By: Susie Vela on 10-06-2024 Creatinine [Mass/Vol] 0.65 mg/dL Low 0.70-1.20 [facility] Serum globulin measurementOr dered By: Susie Vela on 10-06-2024 Globulin (S) [Mass/Vol] 2.8 g/dL 2.2-4.2 [facility] Serum glucose measurement (m ass/volume)Ordered By: Susie Vela on 10-06-2024 Glucose [Mass/Vol] 106 mg/dL High 70-99 [facility] Serum or plasma alanine mathews otransferase (ALT) measurementOrdered By: Susie Vela on 10-06-2024 ALT [Catalytic activity/Vol] 18 U/L <35 [facility] Serum or plasma albumin danette urement (mass/volume)Ordered By: Susie Vela on 10-06-2024 Albumin [Mass/Vol] 4.4 g/dL 3.4-4.8 [facility] Serum or plasma albumin/glob ulin mass ratioOrdered By: Susie Vela on 10-06-2024 Albumin/Globulin [Mass ratio] 1.6 {ratio} 0.9-2.4 [facility] Serum or plasma alkaline lcu sphatase measurementOrdered By: Susie Vela on 10-06-2024 ALP [Catalytic activity/Vol] 94 U/L 35-104 [facility] Serum or plasma calcium danette urement (mass/volume)Ordered By: Susie Vela on 10-06-2024 Calcium [Mass/Vol] 9.5 mg/dL 7.6-11.0 [facility] Serum or plasma cholesterol in HDL measurement (mass/volume)Ordered By: Susie Vela on 10-06-2024 Cholesterol in HDL [Mass/Vol] 73 mg/dL >40 [facility] Comment on above: National Cholesterol Education Program (NCEP) guidelines:<40 mg/dL: Low HDL-cholesterol (major risk factor for CHD)>= 60 mg/dL: High HDL-cholesterol (negative risk factor for CHD)HDL-cholesterol is affected by a number of factors, e.g. smoking, exercise, hormones, sex and age. Serum or plasma cholesterol measurement (mass/volume)Ordered By: Susie Vela on 10-06-2024 Cholesterol [Mass/Vol] 229 mg/dL High <201 [facility] Comment on above: Cholesterol level, D esirable <200 mg/dLBorderline high cholesterol 200-239 mg/dLHigh cholesterol >=240 mg/dLRecommendations of the NCEP Adult Treatment Panel for the following risk-cutoff thresholds for the [place] population. Serum or plasma estradiol me asurement after follitropin dose (mass/volume)Ordered By: Susie Vela on 10-06-2024 E2 post dose follitropin [Mass/Vol] 7.3 pg/mL [facility] Comment on above: FEMALES ADULT FEMALE : Premenopausal: 15-350 pg/mL(E2 levels vary widely through the menstrual cycle) Postmenopausal: <10 pg/mL GARFIELD STAGES MEAN AGE REFERENCE RANGES Stage I(>14 days and prepubertal) 7.1 years Undetectable-20 pg/mLL Stage II 10.5 years Undetectable-24 pg/mL Stage III 11.6 years Undetectable-60 pg/mL Stage IV 12.3 years 15-85 pg/mL Stage V 14.5 years 15-350 pg/mL Puberty onset (transition from Garfield stage I to Garfield stage II) occurs for girls at a median age of 10.5 (/- 2) years. There is evidence that it may occur up to 1 year earlier in obese girls and in girls.Progression through Garfield stages is variable. Garfield stage V (adult) should be reached by age 18. Serum or plasma urea nitroge n measurement (mass/volume)Ordered By: Susie Vela on 10-06-2024 Urea nitrogen [Mass/Vol] 16 mg/dL 4-19 [facility] Sodium levelOrdered By: Zak Vela on 10-06-2024 Sodium [Moles/Vol] 141 mmol/L 133-145 [facility] TSH DL <= 0.005 mIU/L QnOrde red By: Susie Vela on 10-06-2024 TSH Qn 2.350 uIU/mL 0.300-4.200 [facility] Thyroid Stim Hormone (TSH)on 10-06-2024 TSH 2.350 uIU/mL Normal 0.300-4.200 [facility] Comment on above: Performed By: #### L 350.1000 #### [facility] Laboratory [facility] [place], [address] Total proteinOrdered By: Caleb Vela on 10-06-2024 Protein [Mass/Vol] 7.1 g/dL 5.9-8.4 [facility] Triglycerides measurementOrd ered By: Susie Vela on 10-06-2024 Triglyceride [Mass/Vol] 151 mg/dL <[address] [facility] Comment on above: The drugs N-Acetylcy steine and Metamizole may falsely depress this assay. Normal range: <150 mg/dLBorderline High: 150-199 mg/dLHigh: 200-499 mg/dLVery High: >500 mg/dL White blood cell (WBC) count Ordered By: Susie Vela on 10-06-2024 WBC (Bld) [#/Vol] 5.9 10*3/uL 4.4-11.0 [facility] Urine Cultureon 06-29-2024 [facility] Mixed Gram Positive Organisms Trufant Count 25,000-50,000 MIX[facility] Mixed contaminants. Submit a new specimen if indicated. Normal [facility] Comment on above: Performed By: #### L 400.2010, M100.2199 #### [facility] Laboratory [address] [place], [address] Bilirubin Test strip Ql (U)O rdered By: Lesly Chappell on 06-27-2024 Bilirubin Ql (U) 1 mg/dL High Negative [facility] Comment on above: COLOR OF URINE MAY A FFECT DIPSTICK RESULTS. Ketones Test strip Ql (U)Ord ered By: Lesly Chappell on 06-27-2024 Ketones Ql (U) 5 mg/dl High Negative [facility] Nitrite Test strip Ql (U)Ord ered By: Lesly Chappell on 06-27-2024 Nitrite Ql (U) Positive High Negative [facility] Protein Test strip Ql (U)Ord ered By: Lesly Chappell on 06-27-2024 Protein Ql (U) 100 mg/dl High Negative [facility] Urinalysis, Routine (Dipstic k)on 06-27-2024 BILIRUBIN URINE 1 mg/dL Abnormal Negative [facility] Comment on above: Order Comment: COLOR OF URINE MAY AFFECT DIPSTICK RESULTS. Urine, Random Result Comment: COLO R OF URINE MAY AFFECT DIPSTICK RESULTS. Performed By: #### L 400.2010, #### [facility] [address] [place], [address] Clarity (U) Turbid Normal Clear [facility] Comment on above: Order Comment: COLOR OF URINE MAY AFFECT DIPSTICK RESULTS. Urine, Random Performed By: #### L 400.2010, #### [facility] [address] [place], [address] Color (U) Brown Normal Yellow [facility] Comment on above: Order Comment: COLOR OF URINE MAY AFFECT DIPSTICK RESULTS. Urine, Random Performed By: #### L 400.2010, #### [facility] [address] [place], [address] GLUCOSE, UR Normal Normal Normal [facility] Comment on above: Order Comment: COLOR OF URINE MAY AFFECT DIPSTICK RESULTS. Urine, Random Performed By: #### L 400.2010, #### [facility] [address] [place], [address] KETONE UR 5 mg/dl Abnormal Negative [facility] Comment on above: Order Comment: COLOR OF URINE MAY AFFECT DIPSTICK RESULTS. Urine, Random Performed By: #### L 400.2010, #### [facility] [address] [place], [address] LEUK ESTERASE 100 /ul Abnormal Negative [facility] Comment on above: Order Comment: COLOR OF URINE MAY AFFECT DIPSTICK RESULTS. Urine, Random Performed By: #### L 400.2010, #### [facility] [address] [place], [address] Nitrite Ql (U) Positive Abnormal Negative [facility] Comment on above: Order Comment: COLOR OF URINE MAY AFFECT DIPSTICK RESULTS. Urine, Random Performed By: #### L 400.2010, #### [facility] [address] [place], [address] OCCULT BLOOD-UR 250 /ul Abnormal Negative [facility] Comment on above: Order Comment: COLOR OF URINE MAY AFFECT DIPSTICK RESULTS. Urine, Random Performed By: #### L 400.2010, #### [facility] [address] [place], [address] pH UR 6.5 Normal 5.0 - 8.0 [facility] Comment on above: Order Comment: COLOR OF URINE MAY AFFECT DIPSTICK RESULTS. Urine, Random Performed By: #### L 400.2010, #### [facility] [address] [place], [address] PROT DIPSTX 100 mg/dl Abnormal Negative [facility] Comment on above: Order Comment: COLOR OF URINE MAY AFFECT DIPSTICK RESULTS. Urine, Random Performed By: #### L 400.2010, #### [facility] [address] [place], [address] SP.GR. DIPSTX 1.020 Normal 1.002-1.030 [facility] Comment on above: Order Comment: COLOR OF URINE MAY AFFECT DIPSTICK RESULTS. Urine, Random Performed By: #### L 400.2010, #### [facility] [address] [place], [address] UROBILI 1 mg/dl Abnormal Normal [facility] Comment on above: Order Comment: COLOR OF URINE MAY AFFECT DIPSTICK RESULTS. Urine, Random Performed By: #### L 400.2010, #### [facility] [address] [place], [address] Urine clarityOrdered By: Niall Chappell on 06-27-2024 Clarity (U) Turbid Clear [facility] Urine color determinationOrd ered By: Lesly Chappell on 06-27-2024 Color (U) Brown Yellow [facility] Urine cultureOrdered By: Niall Chappell on 06-27-2024 Bacteria identified Cx Nom (U) Positive Abnormal [facility] Urine glucose detectionOrder ed By: Lesly Chappell on 06-27-2024 Glucose Ql (U) Normal mg/dl Normal [facility] Urine leukocyte esterase det ection by dipstickOrdered By: Lesly Chappell on 06-27-2024 Leukocyte esterase Test strip Ql (U) 100 /ul High Negative [facility] Urine pHOrdered By: Lesly hobbs on 06-27-2024 pH (U) 6.5 [pH] 5.0 - 8.0 [facility] Urine specific gravity measu rementOrdered By: Lesly Chappell on 06-27-2024 Specific gravity (U) [Rel density] 1.020 1.002-1.030 [facility] Urine urobilinogen measureme ntOrdered By: Lesly Chappell on 06-27-2024 Urobilinogen Ql (U) 1 mg/dl High Normal [facility] Abdomen Single Viewon 2024 Abdomen Single View [facility] [address] [place], [place] [address] Abdomen Single View MR#: [id number] Acct: [id number] Name: SABINA LOZANO Rep #: [id number] : 1960 F 64 From: Kavon Li MD PCP: Dr. Susie Vela MD Status: REG CLI Study: Abdomen Single View Date of Exam: 06/07/24 Exam# [id number] Ordering Dr: Lesly Chappell MD [id number] STUDY: X-RAY - ABDOMEN/PELVIS REASON FOR EXAM: Female, 64 years old. Renal stones. Follow-up. TECHNIQUE: Single AP view of the abdomen / pelvis. COMPARISON: October 10, 2023 FINDINGS: Normal bowel gas pattern. Stable small calcifications projected over the left renal shadow. There is no demonstrated free abdominal air. The visualized liver, spleen and kidneys are grossly normal in size and morphology. Normal soft tissue structures. Normal visualized osseous structures. RAD/Abdomen Single View IMPRESSION: Stable left nephrocalcinosis. Electronically Signed: Kavon Li MD at 14:18 EST , CC: Dr. Susie Vela MD; Dr. 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 Performed By: #### L 350.1000 #### [facility] [address] [place], [address] Pap Stain (control)on 2024 Pap Stain (control) - -------- Patient Age/Sex Location Account Attending Physician -------- SABINA LOZANO 64/F LABSPEC [id number] Dr. Lesly Chappell MD -------- Specimen: [id number] Received: 06/08/24 Status: JANAY Max Num: [id number] Spec Type: CYSPIN FL Subm Dr: Dr. Lesly Chappell MD HEADER OPERATION: Not noted PRE-OP DIAGNOSIS: Hematuria TISSUE SUBMITTED: Urine for cytology -------- DIAGNOSIS CYTOLOGY Urine for cytology (cytospins): Negative for high grade urothelial carcinoma (NHGUC), Rashida System Category II. See comment. SJ.mr 06/08/2024 COMMENT The specimen is paucicellular. The Rashida System for urine cytology diagnostic categorization was used in the evaluation of this case. CYTOLOGY STUDY Slides are reviewed. CYTOLOGY GROSS Received is 35 ml of yellow cloudy fluid labeled with the patient's name and and designated per the requisition as "urine." Submitted for cytology preparation. Mr 06/08/2024 TC:5 CPT: 35384 Signed (signature on file) Dr. Jermaine Goncalves MD 06/09/24 1057 -------- Normal [facility] Comment on above: Performed By: #### P PAPS #### [facility] [address] [place], [place], [address] Calcium,Totalon 04-27-2024 CA,Total 9.5 mg/dL Normal 8.5-10.1 [facility] Comment on above: Performed By: #### L 501.2200 #### [facility] [address] [place], [place], [address] MA MAMMOGRAM SCREENING BILAT ERAL W/TOMOon 10-08-2023 MA MAMMOGRAM SCREENING BILATERAL W/MAYKEL ORIGINAL FROM: [address] [address] PROCEDURE FOR: SABINA LOZANO [address] [place] [address] Home: PID#: [id number] Exam#: [id number] : 1960 Age: 63 TO: SUSIE VELA MD [address] [place] [address] EXAMINATION: SCREENING DIGITAL BILATERAL MAMMOGRAM WITH TOMOSYNTHESIS, 10/08/2023 11:14 am TECHNIQUE: Screening mammography of the bilateral breasts was performed with tomosynthesis. 2D standard and 3D tomosynthesis combination imaging performed through both breasts in the MLO and CC projection. Computer aided detection was utilized in the interpretation of this exam. COMPARISON: October 03, 2022 HISTORY: Breast cancer screening. FINDINGS: BREAST DENSITY: Heterogeneously dense There is no suspicious mass, architectural distortion or microcalcification. Fibroglandular pattern is stable. IMPRESSION: No mammographic evidence of malignancy. Continued screening with annual mammograms is recommended. Mary Ann Hanck risk calculations, generated with the history provided, report this patient's 10 year risk and lifetime risk for developing breast cancer at 2.3% and 5.6%, respectively. Based on this assessment tool, if the patient's calculated lifetime risk is below 20%, then the patient is considered at average risk for developing breast cancer. If the patient's calculated lifetime risk is at or above 20%, then the patient is considered high risk for developing breast cancer and may be a candidate for supplemental breast MRI screening in addition to annual mammographic screening per the [employer]. BIRADS: MAMMOGRAM BI-RADS: 1: Negative RECALL: 1 year screening RECALL TYPE: mammo LETTER SENT: Normal BI-RADS 1 and 2 Interpreted by: Marry Cedeno Preliminary Report By: Marry Cedeno Electronically signed By Marry Cedeno Dictated Date: 10/08/2023 3:05:07 PM Prelim Date: 10/08/2023 3:08:42 PM Sign Date: 10/08/2023 3:08:42 PM Ordering Provider: SUSIE VELA Sliver Lapper: YOEL LAZO RT(R)(M)(CT) letter sent: Normal BI-RADS 1 and 2 Mammogram BI-RADS: 1 Negative Normal [facility] Bilirubin Test strip Ql (U)O rdered By: Susie Vela on 08-28-2023 Bilirubin Ql (U) Negative Negative [facility] Culture, urineOrdered By: [place] Vela on 08-28-2023 Bacteria identified Cx Nom (U) Mixed Gram Pos & Gram Neg Org [facility] Cytology report of Body flui d Cyto stainOrdered By: Susie Vela on 08-28-2023 Cytology report Cyto stain Doc (Body fld) SEE PATHOLOGY REPORT [facility] Comment on above: Specimen submitted t o Anatomical Pathology Department for testing. Ketones Test strip Ql (U)Ord ered By: Susie Vela on 08-28-2023 Ketones Ql (U) 5 mg/dl Negative [facility] Nitrite Test strip Ql (U)Ord ered By: Susie Vela on 08-28-2023 Nitrite Ql (U) Negative Negative [facility] Protein Test strip Ql (U)Ord ered By: Susie Vela on 08-28-2023 Protein Ql (U) 15 mg/dl Negative [facility] Urine blood detectionOrdered By: Susie Vela on 08-28-2023 RBC Ql (U) 250 /ul Negative [facility] Urine clarityOrdered By: Caleb Vela on 08-28-2023 Clarity (U) Sl. Cloudy Clear [facility] Urine color determinationOrd ered By: Susie Vela on 08-28-2023 Color (U) Yellow Yellow [facility] Urine glucose detectionOrder ed By: Susie Vela on 08-28-2023 Glucose Ql (U) Normal mg/dl Normal [facility] Urine leukocyte esterase det ection by dipstickOrdered By: Susie Vela on 08-28-2023 Leukocyte esterase Test strip Ql (U) 25 /ul Negative [facility] Urine pHOrdered By: Susie kikrland on 08-28-2023 pH (U) 5.0 [pH] 5.0 - 8.0 [facility] Urine specific gravity measu rementOrdered By: Susie Vela on 08-28-2023 Specific gravity (U) [Rel density] 1.025 1.002-1.030 [facility] Urine urobilinogen measureme ntOrdered By: Susie Vela on 08-28-2023 Urobilinogen Ql (U) 1 mg/dl Normal [facility] Bilirubin Test strip Ql (U)O rdered By: Susie Vela on 08-06-2023 Bilirubin Ql (U) Negative Negative [facility] Ketones Test strip Ql (U)Ord ered By: Susie Vela on 08-06-2023 Ketones Ql (U) 5 mg/dl Negative [facility] Nitrite Test strip Ql (U)Ord ered By: Susie Vela on 08-06-2023 Nitrite Ql (U) Negative Negative [facility] Protein Test strip Ql (U)Ord ered By: Susie Vela on 08-06-2023 Protein Ql (U) Negative Negative [facility] Urine blood detectionOrdered By: Susie Vela on 08-06-2023 RBC Ql (U) 10 /ul Negative [facility] Urine clarityOrdered By: Caleb Vela on 08-06-2023 Clarity (U) Sl. Cloudy Clear [facility] Urine color determinationOrd ered By: Susie Vela on 08-06-2023 Color (U) Yellow Yellow [facility] Urine glucose detectionOrder ed By: Susie Vela on 08-06-2023 Glucose Ql (U) Normal mg/dl Normal [facility] Urine leukocyte esterase det ection by dipstickOrdered By: Susie Vela on 08-06-2023 Leukocyte esterase Test strip Ql (U) 100 /ul Negative [facility] Urine pHOrdered By: Susie kirkland on 08-06-2023 pH (U) 5.0 [pH] 5.0 - 8.0 [facility] Urine specific gravity measu rementOrdered By: Susie Vela on 08-06-2023 Specific gravity (U) [Rel density] 1.025 1.002-1.030 [facility] Urine urobilinogen measureme ntOrdered By: Susie Vela on 08-06-2023 Urobilinogen Ql (U) Normal mg/dl Normal [facility] Basophil percentageOrdered B y: Geovanni Dillon on 07-27-2023 Basophil percentage 10-25 SEEN /hpf 0-5 [facility] Bilirubin Test strip Ql (U)O rdered By: Geovanni Dillon on 07-27-2023 Bilirubin Ql (U) 1 mg/dL Negative [facility] Comment on above: COLOR OF URINE MAY A FFECT DIPSTICK RESULTS. Culture, urineOrdered By: Daniel Dillon on 07-27-2023 Bacteria identified Cx Nom (U) Positive [facility] Ketones Test strip Ql (U)Ord ered By: Geovanni Dillon on 07-27-2023 Ketones Ql (U) 15 mg/dl Negative [facility] Mucus LM Ql (Urine sed)Order ed By: Geovanni Dillon on 07-27-2023 Mucus Ql (Urine sed) 0 SEEN /hpf [facility] Nitrite Test strip Ql (U)Ord ered By: Geovanni Dillon on 07-27-2023 Nitrite Ql (U) Positive Negative [facility] No Panel InformationOrdered By: Geovanni Dillon on 07-27-2023 Urine RBC 25-50 SEEN /hpf 0-5 [facility] Protein Test strip Ql (U)Ord ered By: Geovanni Dillon on 07-27-2023 Protein Ql (U) 500 mg/dl Negative [facility] Squamous epithelial cells de tection in urine sediment by light microscopyOrdered By: Geovanni Dillon on 07-27-2023 Epithelial cells.squamous LM Ql (Urine sed) 0 SEEN /hpf 5-10 [facility] Urine blood detectionOrdered By: Geovanni Dillon on 07-27-2023 RBC Ql (U) 250 /ul Negative [facility] Urine clarityOrdered By: Reynaldo Dillon on 07-27-2023 Clarity (U) Turbid Clear [facility] Urine color determinationOrd ered By: Geovanni Dillon on 07-27-2023 Color (U) Brown Yellow [facility] Urine glucose detectionOrder ed By: Geovanni Dillon on 07-27-2023 Glucose Ql (U) Normal mg/dl Normal [facility] Urine leukocyte esterase det ection by dipstickOrdered By: Geovanni Dillon on 07-27-2023 Leukocyte esterase Test strip Ql (U) 100 /ul Negative [facility] Urine pHOrdered By: Geovanni major on 07-27-2023 pH (U) 7.0 [pH] 5.0 - 8.0 [facility] Urine sediment bacteria coun t by microscopy (number/high power field)Ordered By: Geovanni Dillon on 07-27-2023 Bacteria LM.HPF (Urine sed) [#/Area] 2 /[HPF] None Seen [facility] Urine specific gravity measu rementOrdered By: Geovanni Dillon on 07-27-2023 Specific gravity (U) [Rel density] 1.020 1.002-1.030 [facility] Urine urobilinogen measureme ntOrdered By: Geovanni Dillon on 07-27-2023 Urobilinogen Ql (U) Normal mg/dl Normal [facility] Absolute lymphocyte countOrd ered By: Susie Vela on 03-21-2023 Lymphocytes Auto (Unsp spec) [#/Vol] 1.52 10*3/uL 0.83-4.51 [facility] Basophil percentageOrdered B y: Susie Vela on 03-21-2023 Basophils/100 WBC (Bld) 0.5 % 0-[address] [facility] Bilirubin [Mass/Vol] 0.40 mg/dL 0.20-1.00 [facility] Comment on above: For patients on eltr ombopag therapy, use of Dimension [place] TBIL is not recommended. Chloride [Moles/Vol] 109 mmol/L 98-107 [facility] Cholesterol [Mass/Vol] 198 mg/dL <200 [facility] Comment on above: <200 mg/dL Desirable 200-240 mg/dL Borderline >240 mg/dL High Risk Eosinophils/100 WBC (Bld) 6.3 % 0-5 [facility] Glucose [Mass/Vol] 94 mg/dL 74-106 [facility] Neutrophils (Bld) [#/Vol] 3.8 10*3/uL 2.0-7.7 [facility] Neutrophils/100 WBC (Bld) 62.7 % 47-70 [facility] Potassium [Moles/Vol] 4.1 mmol/L 3.5-5.1 [facility] Protein [Mass/Vol] 7.2 g/dL 6.4-8.2 [facility] Sodium [Moles/Vol] 138 mmol/L 136-145 [facility] Triglyceride [Mass/Vol] 75 mg/dL <[address] [facility] Comment on above: The drugs N-Acetylcy steine and Metamizole may falsely depress this assay.Serum Triglycerides Reference Interval Normal <150 mg/dL Borderline high 150 - 199 mg/dL High 200 - 499 mg/dL Very High > or = 500 mg/dL WBC (Bld) [#/Vol] 6.0 10*3/uL 4.4-11.0 [facility] Blood erythrocytes count (nu mber/volume)Ordered By: Susie Vela on 03-21-2023 RBC (Bld) [#/Vol] 4.62 10*6/uL 4.2-5.4 [facility] Blood hemoglobin measurement (mass/volume)Ordered By: Susie Vela on 03-21-2023 Hemoglobin (Bld) [Mass/Vol] 14.3 g/dL 12.0-15.0 [facility] Blood lymphocytes/100 leukoc ytesOrdered By: Susie Vela on 03-21-2023 Lymphocytes/100 WBC (Bld) 25.2 % 19-41 [facility] Blood monocytes/100 leukocyt esOrdered By: Susie Vela on 03-21-2023 Monocytes/100 WBC (Bld) 5.0 % 0-[address] [facility] Blood platelet mean volumeOr dered By: Susie Vela on 03-21-2023 Platelet mean volume (Bld) [Entitic vol] 10.1 fL 6.2-12.0 [facility] Determination of erythrocyte mean corpuscular volume (MCV)Ordered By: Susie Vela on 03-21-2023 MCV (RBC) [Entitic vol] 93.7 fL 81-[address] [facility] Hematocrit Auto (Bld) [Volum e fraction]Ordered By: Susie Vela on 03-21-2023 Hematocrit (Bld) [Volume fraction] 43.3 % 37-47 [facility] Laboratory - Chemistry and C hemistry - challengeOrdered By: Susie Vela on 03-21-2023 ALP [Catalytic activity/Vol] 84 U/L 45-117 [facility] ALT [Catalytic activity/Vol] 21 U/L 13-56 [facility] CO2 [Moles/Vol] 25.0 mmol/L 21.0-32.0 [facility] Globulin (S) [Mass/Vol] 3.2 g/dL 2.2-4.[address] [facility] Urea nitrogen/Creatinine [Mass ratio] 24.4 mg/mg 10-20 [facility] Laboratory - Hematology and Cell countsOrdered By: Susie Vela on 03-21-2023 Erythrocyte distribution width (RBC) [Entitic vol] 40.9 fL 35.1-43.9 [facility] Erythrocyte distribution width (RBC) [Ratio] 11.9 % 11.6-14.6 [facility] Immature granulocytes/100 WBC (Bld) 0.300 % 0.0-0.9 [facility] Comment on above: IG% - Immature Granu locytes (promyelocytes, myelocytes and metamyelocytes) > 1% indicates that a LEFT SHIFT is Present. MCH (RBC) [Entitic mass] 31.0 pg 27.0-32.0 [facility] Nucleated RBC/100 WBC (Bld) [Ratio] 0 % 0-5 [facility] MCHC Auto (RBC) [Mass/Vol]Or dered By: Susie Vela on 03-21-2023 MCHC (RBC) [Mass/Vol] 33.0 g/dL 32-36 [facility] No Panel InformationOrdered By: Susie Vela on 03-21-2023 Estimated GFR (MDRD) Amer 110 mL/min >60 [facility] Comment on above: GFR Calc Estimated GFR (MDRD) Non-Af Amer 91 mL/min >60 [facility] Comment on above: Non- GFR Calc Thyroid Stimulating Hormone (TSH) 1.69 uIU/mL 0.358-3.74 [facility] Platelets bldOrdered By: Caleb Vela on 03-21-2023 Platelets (Bld) [#/Vol] 257 10*3/uL 150-450 [facility] Serum or plasma albumin danette urement (mass/volume)Ordered By: Susie Vela on 03-21-2023 Albumin [Mass/Vol] 4.0 g/dL 3.2-5.0 [facility] Serum or plasma albumin/glob ulin mass ratioOrdered By: Susie Vela on 03-21-2023 Albumin/Globulin [Mass ratio] 1.2 {ratio} 0.9-2.4 [facility] Serum or plasma calcium danette urement (mass/volume)Ordered By: Susie Vela on 03-21-2023 Calcium [Mass/Vol] 9.0 mg/dL 8.5-10.1 [facility] Serum or plasma cholesterol in HDL measurement (mass/volume)Ordered By: Susie Vela on 03-21-2023 Cholesterol in HDL [Mass/Vol] 69 mg/dL >40 [facility] Comment on above: The drugs N-Acetylcy steine and Metamizole may falsely depress this assay. Reference Range HDL <40 mg/dL Low HDL Cholesterol HDL >or= 60 mg/dL High HDL Cholesterol Serum or plasma cholesterol in VLDL measurement (mass/volume)Ordered By: Susie Vela on 03-21-2023 Cholesterol in VLDL [Mass/Vol] 15 mg/dL 5-40 [facility] Serum or plasma creatinine m easurement (mass/volume)Ordered By: Susie Vela on 03-21-2023 Creatinine [Mass/Vol] 0.70 mg/dL 0.55-1.02 [facility] Comment on above: The validity of the calculated GFR & GFRAA in patients over 70 years has not been determined. Clinical correlation is essential. Serum or plasma low density lipoprotein (LDL) cholesterol measurement (mass/volume)Ordered By: Susie Vela on 03-21-2023 Cholesterol in LDL [Mass/Vol] 114 mg/dL 0-130 [facility] Serum or plasma urea nitroge n measurement (mass/volume)Ordered By: Susie Vela on 03-21-2023 Urea nitrogen [Mass/Vol] 17 mg/dL 7-18 [facility] Thin prep Papanicolaou smear with manual screeningOrdered By: Susie Vela on 03-21-2023 Thin prep Papanicolaou smear with manual screening 15 U/L 15-37 [facility] Thin prep Papanicolaou smear with manual screening 4 5-15 [facility] US BREAST RIGHT LIMITEDon US BREAST RIGHT LIMITED ORIGINAL FROM: [place] [address] PROCEDURE FOR: SABINA LOZANO [address] [place] [address] Home: PID#: [id number] Exam#: [id number] : 1960 Age: 62 TO: SUSIE VELA MD [address] [place] [address] EXAMINATION: ULTRASOUND OF THE RIGHT BREAST 11/05/2022 [...] VELA CLINICAL: PALPABLE LUMP RIGHT BREASTRETROAREOLAR REGION. Sliver Lapper: KENN RODRIGUEZ [facility] letter sent: Normal BI-RADS 1 and 2 Ultrasound BI-RADS: 2 Benign Normal [facility] US BREAST RIGHT LIMITEDon US BREAST RIGHT LIMITED ORIGINAL FROM: [facility] [address] [place], [place] [address] PROCEDURE FOR: SABINA LOZANO [address] [place] [address] Home: PID#: [id number] Exam#: [id number] : 1960 Age: 62 TO: SUSIE VELA MD [address] [place] [address] EXAMINATION: ULTRASOUND OF THE RIGHT BREAST 10/10/2022 [...] SUSIE VELA CLINICAL: PALPABLE LUMP RIGHT BREAST. Sliver Lapper: AUTUMN RODRIGUEZ(Isabella) RDMS letter sent: Normal BI-RADS 1 and 2 Ultrasound BI-RADS: 0 Indeterminate [facility] 10-25-2021 CNOV Office Visit (AKILAH ) SABINA LOZANO ([id number]) 1960 F Date Time Provider Department 10/25/21 9:00 AM FRANTZ BROWN During your visit today, we recorded the following information about you: Frantz Brown MD 11/05/2021 10:29 AM Signed Frantz Brown MD Department of Orthopaedics Orthopaedics [address] [place] [address] Dept: [phone] Dept October 25, 2021 CHIEF COMPLAINT: Post [...] this visit. Allergies: Sulfa (Sulfonamide Antibiotics) Frantz Brown MD Referring Provider: FRANTZ BROWN [[id number]] Allergies As of Date: 10/25/2021 Noted Allergy Reaction SULFA (SULFONAMIDE ANTIBIOTICS) 08/07/2005 2 - Rash Date Reviewed: 10/25/2021 Reviewed by: Frantz Brown MD - Fully Assessed Reason for Visit: 12 weeks 1 days post op Left shoulder arthroscopic [Other] Cmt: rotator cuff repair and SAD Post Op [174] Primary Visit Diagnosis:Traumatic complete tear of left rotator cuff, subsequent encounter [S46.012D] Prescriptions as of 11/05/2021 - morphine SR (MS CONTIN) 15 mg 12 hr tablet Take 1 tablet by mouth every 12 hours for 3 days. for pain - sertraline (ZOLOFT) 50 mg tablet Take 50 mg by mouth once daily. - calcium carbonate/vitamin d3(CALCIUM 500 WITH VITAMIN D 500 MG-125 UNIT TAB) Take one(1) tablet twice daily. - therapeutic multivitamin ORAL Tab Take one(1) tablet daily. Problem List As Of Date 10/25/2021 Noted Resolved Pre-op evaluation [Z01.818] 07/18/2021 Traumatic complete tear of left rotator cuff [S*07/18/2021 On SSRI therapy [Z79.899] 07/18/2021 History of PSVT (paroxysmal supraventricular ta*07/18/2021 Encounter Status:Closed by FRANTZ BROWN on 11/05/21 Normal [facility] CNCOon 10-09-2021 CNCO HNO ID: [id number] Author: Mammography Coordinator Service: ? Author Type: Physician Type: Letter Filed: 10/10/2021 11:31 PM Note Text: October 09, 2021 PID: [id number] Sabina Lozano [address] [place] [address] Dear Ms. Lozano, We are pleased to [...] report will be kept on file at [facility] as part of your permanent medical record and are available for your continuing care. Thank you for allowing us to help in meeting your health care needs. Sincerely, Dr. Medrano Interpreting Radiologist [facility] (Normal over 40) Normal [facility] SCREENINGon 10-09-2021 [facility] SCREENING * * *Final Report* * * DATE OF EXAM: Oct 09 2021 9:11AM FLAVIO [id number] - [facility] SCREENING / PROCEDURE REASON: Encounter for screening mammogram for malignant neoplasm of breast * * * * Physician Interpretation * * * * RESULT: #[id number] - [facility] SCREENING BILATERAL DIGITAL SCREENING MAMMOGRAM WITH CAD: 10/09/2021 HISTORY: Encounter For Screening Mammogram For Malignant Neoplasm Of Breast / Screening Mammogram-Patient reports NO symptoms. /priors available for comparison. RESULT: TECHNIQUE: The study was acquired using full field digital technology and interpreted from soft copy. Current study was also evaluated with a Computer Aided Detection (CAD). Comparison is made to exams dated: 08/22/2020 mammogram - [facility], 01/14/2019 mammogram, 02/12/2016 mammogram, 12/12/2014 mammogram - [facility], and 01/09/2009 mammogram. There are scattered fibroglandular elements in both breasts. No significant masses, calcifications, or other findings are seen in either breast. There has been no significant interval change. IMPRESSION: NEGATIVE There is no mammographic evidence of malignancy. A 1 year screening mammogram is recommended. Emerald Medrano M.D., cp/hector:10/09/2021 09:23:33 Sliver Lapper(s): RT Joelle(R)(M), [facility] letter sent: Normal over 40 Mammogram BI-RADS: 1 Negative Multiple national specialty organizations have released breast cancer screening guidelines for women at average risk for developing breast cancer - guidelines that are based on both evidence and opinion, yet differ on when to start and how often to screen for breast cancer. With representation from Breast Imaging, Internal Medicine, Women's Health, Family Medicine, and Medical/Surgical Oncology, the [facility] has carefully reviewed the data and reached the following consensus: 1) All women should engage in shared decision-making with their providers to decide when to start and how often to screen; 2) All women should have the opportunity to start screening mammography at age 40; 3) For women ages 45-55, we recommend annual screening mammograms; 4) For women ages 55 and over, we support both the transition from an annual to a biennial interval if this aligns more with patient's values and preferences, or continuation with annual screening; 5) All women should discuss with their providers when to stop screening mammograms. Composite Bond Worker: Hector Transcribe Date/Time: Oct 09 2021 9:11A Dictated by: EMERALD MEDRANO MD This examination was interpreted and the report reviewed and electronically signed by: EMERALD MEDRANO MD on Oct 09 2021 9:23AM EST [id number] Normal [facility] CNOVon 09-20-2021 CNOV Office Visit (ORTHWS ) SABINA LOZANO ([id number]) 1960 F Date Time Provider Department 09/20/21 9:15 AM FRANTZ BROWN During your visit today, we recorded the following information about you: Frantz Brown MD 09/20/2021 1:49 PM Signed Frantz Brown MD Department of Orthopaedics Orthopaedics [address] [facility] [address] Dept: [phone] Dept September 20, 2021 CHIEF COMPLAINT: Established [...] op rehab/ therapy at a place in [place] ([facility]). ASSESSMENT: S46.012A Traumatic complete tear [...] this visit. Allergies: Sulfa (Sulfonamide Antibiotics) Frantz Brown MD Referring Provider: FRANTZ BROWN [[id number]] Allergies As of Date: 09/20/2021 Noted Allergy Reaction SULFA (SULFONAMIDE ANTIBIOTICS) 08/07/2005 2 - Rash Date Reviewed: 09/20/2021 Reviewed by: Frantz Brown MD - Fully Assessed Reason for Visit: Established Patient [175] Follow Up [171] Arthroscopy-2 [311] Primary Visit Diagnosis:Traumatic complete tear of left rotator cuff, initial encounter [S46.012A] Order(s):CONSULT TO PHYSICAL THERAPY [9099] Order #: [id number]: 1 Prescriptions as of 09/20/2021 - morphine SR (MS CONTIN) 15 mg 12 hr tablet Take 1 tablet by mouth every 12 hours for 3 days. for pain - sertraline (ZOLOFT) 50 mg tablet Take 50 mg by mouth once daily. - calcium carbonate/vitamin d3(CALCIUM 500 WITH VITAMIN D 500 MG-125 UNIT TAB) Take one(1) tablet twice daily. - therapeutic multivitamin ORAL Tab Take one(1) tablet daily. Problem List As Of Date 09/20/2021 Noted Resolved Pre-op evaluation [Z01.818] 07/18/2021 Traumatic complete tear of left rotator cuff [S*07/18/2021 On SSRI therapy [Z79.899] 07/18/2021 History of PSVT (paroxysmal supraventricular ta*07/18/2021 Encounter Status:Closed by FRANTZ BROWN on 09/20/21 [facility] CNOVon 08-13-2021 CNOV Office Visit (ORTHWS ) SABINA LOZANO ([id number]) 1960 F Date Time Provider Department 08/13/21 1:00 PM FRANTZ BROWN During your visit today, we recorded the following information about you: Frantz Brown MD 08/23/2021 8:48 AM Signed Frantz Brown MD Department of Orthopaedics Orthopaedics [address] [place] [address] Dept: [phone] Dept August 13, 2021 CHIEF COMPLAINT: post op left shoulder. HPI She is about 2 and half or 3 weeks after surgery. Everything is looking quite well. She not having much troubles at all other than what you would expect with some normal and mild stiffness and soreness in the shoulder. Patient presents for suture removal after appointment with Dr. Brown. The wound is well healed without signs [...] this visit. Allergies: Sulfa (Sulfonamide Antibiotics) Frantz Brown MD Referring Provider: FRANTZ BROWN [[id number]] Allergies As of Date: 08/13/2021 Noted Allergy Reaction SULFA (SULFONAMIDE ANTIBIOTICS) 08/07/2005 2 - Rash Date Reviewed: 08/13/2021 Reviewed by: Cris Mireles - Fully Assessed Reason for Visit: post op left shoulder [Other] Primary Visit Diagnosis:Traumatic complete tear of left rotator cuff, initial encounter [S46.012A] Prescriptions as of 08/23/2021 - morphine SR (MS CONTIN) 15 mg 12 hr tablet Take 1 tablet by mouth every 12 hours for 3 days. for pain - sertraline (ZOLOFT) 50 mg tablet Take 50 mg by mouth once daily. - calcium carbonate/vitamin d3(CALCIUM 500 WITH VITAMIN D 500 MG-125 UNIT TAB) Take one(1) tablet twice daily. - therapeutic multivitamin ORAL Tab Take one(1) tablet daily. Problem List As Of Date 08/13/2021 Noted Resolved Pre-op evaluation [Z01.818] 07/18/2021 Traumatic complete tear of left rotator cuff [S*07/18/2021 On SSRI therapy [Z79.899] 07/18/2021 History of PSVT (paroxysmal supraventricular ta*07/18/2021 Encounter Status:Closed by FRANTZ BROWN on 08/23/21 [facility] ANES POSTPROC EVALon 022 ANES POSTPROC EVAL HNO ID: [id number] Author: Maria Teresa Jordan MD Service: Anesthesiology Author Type: Anesthesiologist Type: Anesthesia Postprocedure Evaluation Filed: 08/01/2021 12:29 PM Note Text: POST ANESTHESIA EVALUATION NOTE : 1960 Procedure Summary Date: 08/01/21 Room / Location: [place] OR02 / [place] Anesthesia Start: 733 Anesthesia Stop: 1118 Procedure: ARTHROSCOPY SHOULDER ROTATOR CUFF (Left Shoulder) Diagnosis: Traumatic complete tear of left rotator cuff, initial encounter Surgeons: Frantz Brown MD Responsible Provider: Maria Teresa Jordan MD Anesthesia Type: general, regional ASA Status: 2 Anesthesia Type: general, regional Airway Type: ETT Last Vitals Vitals Value Taken Time BP 107/57 08/01/21 1215 Temp 36.5 ?C (97.7 ?F) 08/01/21 1200 Pulse 69 08/01/21 1225 Resp 8 08/01/21 1225 SpO2 93 % 08/01/21 1225 Vitals shown include unvalidated device data. Post Anesthesia Patient Status Patient Evaluation: PACU. PACU/ICU Patient Condition: stable. Anticipated Disposition: phase 2 then home. Neurological Status: aware and responsive. Pulmonary Status: breathing comfortably on room air Airway Control: returned to baseline unsupported. Cardiovascular Status: stable. Pain Management: clinically adequate - multimodal analgesia pain management approach Postoperative Hydration: acceptable. Intraoperative Events: no significant anesthesia events Post Operative Nausea/Vomiting Status: no significant post operative nausea or vomiting Anesthetic Observations: Recommendation: continue current plan of care. Anesthesia Observations No Documentation SIGNATURE: Maria Teresa Jordan MD PATIENT NAME: Sabina Lozano DATE: August 01, 2021 TIME: 12:29 PM CSN: [id number] [facility] ANES PRE-OPon 08-01-2021 ANES PRE-OP HNO ID: [id number] Author: Maria Teresa Jordan MD Service: Anesthesiology Author Type: Anesthesiologist Type: Anesthesia Preprocedure Evaluation Filed: 08/01/2021 6:57 AM Note Text: ANESTHESIOLOGY DAY OF SURGERY NOTE : 1960 Procedure Information Date/Time: 08/01/21729 Procedure: ARTHROSCOPY SHOULDER ROTATOR CUFF (Left Shoulder) Location: [place] [address] / [place] Surgeons: Frantz Brown MD Estimated body mass index is 33.61 kg/m? as calculated from the following: Height as of this encounter: 153.7 cm (5' 0.51"). Weight as of this encounter: 79.4 kg (175 lb 0.7 oz). Most recent hematocrit and potassium results: Potassium 4.3 06/10/2016 Relevant Problems NEURO-PSYCH (+) History of PSVT (paroxysmal supraventricular tachycardia) I - PHYSICAL EVALUATION AIRWAY Patient intubated: No. Tracheostomy tube not present Mallampati: II. TM distance: >3 FB. Neck ROM: full ROM without neurological symptoms. Mouth opening: adequate. Short neck: no. Thick neck: no DENTAL Dental findings: teeth intact. Additional exam findings: yes. CARDIOVASCULAR Rhythm: regular PULMONARY Breath sounds clear to auscultation. II - ANESTHESIA PLAN ASA Score: 2 Anesthetic Plan: general and regional Airway type: ETT The patient is not a current smoker. NPO Status: adequate Monitoring plan: Standard ASA. Postoperative analgesic plan: parenteral or oral opioids, peripheral nerve block and multimodal analgesia. Patient / Surrogate agrees to blood products: yes DNR status not reviewed with patient and/or family prior to surgery. Significant changes in the patient condition since the History and Physical, not otherwise documented in primary service progress note: no. Potential Anesthesia issues that may suggest increased risk of complications or contraindication to planned procedure: none. Vitals Value Taken Time BP 132/76 08/01/21623 Pulse 64 08/01/21623 Resp 16 08/01/21623 Temp 36.3 ?C (97.3 ?F) 08/01/21623 SpO2 98 % 08/01/21623 Facility-Administered Medications as of 08/01/2021 Medication Dose Route Frequency - [COMPLETED] acetaminophen 1,000 mg tab(s) (TYLENOL) 1,000 mg ORAL Pre-Op Once - [COMPLETED] promethazine 12.5 mg tab(s) (PHENERGAN) 12.5 mg ORAL ONCE - lactated ringers iv infusion 5-30 mL/hr INTRAVENOUS CONTINUOUS - midazolam 2 mg injection (VERSED) 2 mg INTRAVENOUS Pre-Op Once - ceFAZolin iv piggyback 2 g in D5W (iso-osmotic) 100 mL (ANCEF) 2 g INTRAVENOUS Pre-Op Once Outpatient Medications as of 08/01/2021 Medication Sig - sertraline (ZOLOFT) 50 mg tablet Take 50 mg by mouth once daily. - calcium carbonate/vitamin d3(CALCIUM 500 WITH VITAMIN D 500 MG-125 UNIT TAB) Take one(1) tablet twice daily. - therapeutic multivitamin ORAL Tab Take one(1) tablet daily. I have interviewed and examined the patient. I have reviewed the medical record and/or the pre-anesthesia evaluation, pertinent labs, and test results. This contains updated information obtained within 48 hours of Surgery/Procedure. SIGNATURE: Maria Teresa Jordan MD PATIENT NAME: Sabina Whitepp DATE: August 01, 2021 TIME: 6:56 AM [facility]: [id number] [facility] 08-01-2021 [facility] Telephone (AKILAH) BLAKESABINA ([id number]) 1960 F Date Time Provider Department 08/01/21 FRANTZ BROWN During your visit today, we recorded the following information about you: Ashli Plummer Patricia 08/01/2021 1:03 PM [facility]. She states Morphine MS is not indicated for postoperavtive pain or break through pain. She is asking if you want the patient to have an NSAID with the Percocet instead for pain? Sudha Jennings RN 08/02/2021 3:[address] Brown, he has been ordering this for shoulders for 10 years. Attempted to call pt. to see if she had been given med. Left message on voicemail to call office. Called pharmacist and explained that shoulder surgery is very painful, and that Dr. Brown has been ordering this routinely for 10 years. Explained this to Alice that Dr. Brown has been ordering this for his shoulders for 10 years, and that it is a very painful surgery. She states the patient's picked up percocet yesterday and that he stated that was all they wanted at that time. She states she was not comfortable giving sustained release MS to someone who has never had morphine for safety reasons. She states she will attempt to call her to see if her pain is controlled as well. Allergies As of Date: 08/01/2021 Noted Allergy Reaction SULFA (SULFONAMIDE ANTIBIOTICS) 08/07/2005 2 - Rash Date Reviewed: 08/01/2021 Reviewed by: Alice Barney RN - Fully Assessed Reason for Visit: Pharmacict questioning Rx's given today [Other] Prescriptions as of 08/03/2021 - oxyCODONE-acetaminoph en (PERCOCET) 5-325 mg tablet Take 1-2 tablets by mouth every 4 hours as needed for pain for up to 7 days. - morphine SR (MS CONTIN) 15 mg 12 hr tablet Take 1 tablet by mouth every 12 hours for 3 days. for pain - sertraline (ZOLOFT) 50 mg tablet Take 50 mg by mouth once daily. - calcium carbonate/vitamin d3(CALCIUM 500 WITH VITAMIN D 500 MG-125 UNIT TAB) Take one(1) tablet twice daily. - therapeutic multivitamin ORAL Tab Take one(1) tablet daily. Problem List As Of Date 08/01/2021 Noted Resolved Pre-op evaluation [Z01.818] 07/18/2021 Traumatic complete tear of left rotator cuff [S*07/18/2021 On SSRI therapy [Z79.899] 07/18/2021 History of PSVT (paroxysmal supraventricular ta*07/18/2021 Encounter Status:Closed by ROSE ROWLAND MA on 08/03/21 [facility] NURSING PROGon 08-01-2021 NURSING PROG HNO ID: [id number] Author: Krystina Mulligan Service: Nursing Author Type: ? Type: Nursing Progress Note Filed: 08/01/2021 8:29 AM Note Text: Dr. Stephenson at bedside for LEFT Interscalene nerve block. Abdulaziz at bedside, pt monitored throughout, BP 130/67 Pulse 70 Temp 36.3 ?C (97.3 ?F) Resp 18 Ht 153.7 cm (5' 0.51") Wt 79.4 kg (175 lb 0.7 oz) LMP 05/30/2005 SpO2 96% BMI 33.61 kg/m? .Pt tolerated procedure without difficulty. [facility] HISTORY PHYSICALon HISTORY PHYSICAL HNO ID: [id number] Author: Jaye Kay PA-C Service: ? Author Type: Physician Straightedge Machine Operator Helper Type: HANDP Filed: 07/18/2021 11:36 AM Note Text: PREANESTHESIA CONSULT CLINIC TELEHEALTH VISIT Patient has been identified by name and date of : Yes This is a virtual visit using [employer] video visit. It require patient-provider interaction for the medical decision making as documented below. Reason for contact: PACC visit Accompanied by: Self Scheduled Surgery: Left shoulder arthroscopy, rotator cuff Subjective CHIEF COMPLAINT: Patient presents with: Pre-Op Visit HPI: This is a 61 year old female who presents for virtual visit. The patient fell down the stairs in December 2020 and grabbed a railing to catch herself. She has had left shoulder pain since then, attempted heat/cold therapy, OTC pain patches and aleve without relief. Pain wakes her at night. She has imaging consistent with left RTC tear. ACTIVE PROBLEM LIST Pre-Op Evaluation Traumatic Complete Tear of Left Rotator Cuff On Ssri Therapy History of Psvt (Paroxysmal Supraventricular Tachycardia) PAST MEDICAL HISTORY Diagnosis Date - Paroxysmal supraventricular tachycardia (HCC) Supraventricular tachycardia - PMH - PAST MEDICAL HISTORY OF SP ABLATION PAST SURGICAL HISTORY Procedure Laterality Date - COLONOSCOPY FLX DX W/COLLJ SPEC WHEN PFRMD 01/12/15 Colonoscopy - LIG/TRNSXJ FLP TUBE ABDL/VAG APPR UNI/BI 1990 Tubal ligation - PAST SURGICAL HISTORY OF 09/2014 LEFT KNEE; ACL repair - RHINP PRIM LATANDALAR CRTLGSAND/ELVTN NASAL TI Rhinoplasty - TONSILLECTOMY PRIMARY/SECONDARY Tonsillectomy - TOTAL ABDOMINAL HYSTERECT W/WO RMVL TUBE OVARY 2004 Hysterectomy, JUAN, ovaries remain FAMILY HISTORY Problem Relation Age of Onset - Dementia Mother - Breast Cancer Maternal Aunt - other (OVARIAN CANCER) Maternal Grandmother 2 cousins paternal side - Breast Cancer Other 2 paternal cousins Social History Tobacco Use - Smoking status: Never Smoker - Smokeless tobacco: Never Used Vaping Use - Vaping Use: Never used Substance Use Topics - Alcohol use: Yes Comment: Occasional - Drug use: No ALLERGIES Allergen Reactions - Sulfa (Sulfonamide * Rash MEDICATIONS: Current Outpatient Medications Medication Sig - sertraline (ZOLOFT) 50 mg tablet Take 50 mg by mouth once daily. - calcium carbonate/vitamin d3(CALCIUM 500 WITH VITAMIN D 500 MG-125 UNIT TAB) Take one(1) tablet twice daily. - therapeutic multivitamin ORAL Tab Take one(1) tablet daily. No current facility-administered medications for this visit. COVID VACCINATION STATUS: Fully vaccinated REVIEW OF SYSTEMS: Pain Assessment: General: No weight loss, malaise or fevers. Neuro: No history of TIA's, stroke, WATCH SUPERVISOR tumor, impaired sensorium, hemiplegia, paraplegia or quadraplegia. No neurological symptoms or problems. Respiratory: No history of current cough or dyspnea, or pneumonia in the past 6 weeks. No history of respiratory/pulmonary symptoms or problems. Cardiovascular: H/O PSVT, s/p ablation approximately 10 years ago. Since her ablation she has not required medication or had any symptoms. She denies any other cardiac issues in the past. No chest pain, palpitations. GI: No history of GI symptoms or problems. No history of esophageal varices, recent ascites, or ETOH greater than 2 drinks per day. : No history of dysuria, frequency or incontinence,, stones or chronic kidney disease SQL ARCHITECT: Negative for abnormal vaginal bleeding, abnormal vaginal discharge. : Denies, Patient's last menstrual period was 05/30/2005. Endocrine: No history of diabetes. Has not taken steroids within the past 30 days. No history of endocrinological symptoms or problems. Hematology: No history of bleeding or clotting disorder. Pt is not taking anti-coagulation or platelet medications. No history of hematological symptoms or problems. Oncology: No history of CA metastasis, chemo within 30 days, or radiotherapy within 90 days. Has not lost 10% of body wt in 6 months. No history of oncological symptoms or problems. Psych: On sertraline Musculoskeletal: See HPI Skin: Negative for lesions, rash and itching. Objective PHYSICAL EXAM: Ht 5' .5" (1.54m) Wt 175 lb (79.4kg) LMP 05/30/2005 BMI 33.60 kg/(m2). VIDEO EXAM: (if completed, performed via video enabled technology) GENERAL: alert and appropriate, in no distress, well-hydrated, well nourished and happy, smiling, interactive SKIN: no rash noted HEAD: normocephalic, no abnormality or lesion noted EYES: no injection and visual acuity is grossly normal EARS: hearing grossly normal NOSE: external nose normal without rhinorrhea OROPHARYNX: moist mucus membranes NECK: full ROM, no cervical LNs noted RESPIRATORY: breathing non-labored CHEST: equal chest rise with normal respiratory effort Diagnostic tests reviewed for today's visit: Lab Value Units Date High (more content not included)... Normal [facility] CNCOon 07-12-2021 CNCO Letter Text Normal [facility] CNOVon 07-12-2021 CNOV Office Visit (AKILAH ) SABINA LOZANO ([id number]) 1960 F Date Time Provider Department 07/12/21 3:30 PM FRANTZ BROWN During your visit today, we recorded the following information about you: Frantz Brown MD 07/31/2021 8:04 AM Signed Frantz Brown MD Department of Orthopaedics Orthopaedics [address] [facility] [address] Dept: [phone] Dept July 12, 2021 CHIEF COMPLAINT: New [...] as to contrast therapies and/or to take analgesics/anti-infla mmatories as needed and all contraindications were reviewed. [...] Colonoscopy - LIG/TRNSXJ FLP TUBE ABDL/VAG APPR /BI 1990 Tubal ligation - PAST SURGICAL HISTORY [...] changes, sinus pain, sore throat) Respiratory (no recen (more content not included)... Normal [facility]20[facility] BLAKESABINA ([id number]) 1960 F Date Time Provider Department 07/12/21 FRANTZ BROWN During your visit today, we recorded the following information about you: Rose Rowland Ma 07/12/2021 4:37 PM Signed Surgical request completed for left shoulder arthroscopic rotator cuff repair and subacromial decompression on 08/01/2021 at [facility]. Post op appointments have been scheduled and mailed to patient. Rose Rowland Ma 07/13/2021 11:23 AM Signed Surgery has been scheduled as requested. Allergies As of Date: 07/12/2021 Noted Allergy Reaction SULFA (SULFONAMIDE ANTIBIOTICS) 08/07/2005 2 - Rash Date Reviewed: 07/12/2021 Reviewed by: Rose Rowland Ma - Fully Assessed Reason for Visit: Schedule Surgery [1330] Primary Visit Diagnosis:Traumatic complete tear of left rotator cuff, initial encounter [S46.012A] Order(s):SURGICAL REQUEST - ELECTIVE (12/2019) [1648827] Order #: [id number]: 1 Prescriptions as of 07/13/2021 - sertraline (ZOLOFT) 50 mg tablet Take 50 mg by mouth once daily. - metformin HCl (METFORMIN ORAL) Take by mouth. - spironolactone (ALDACTONE ORAL) Take by mouth. - calcium carbonate/vitamin d3(CALCIUM 500 WITH VITAMIN D 500 MG-125 UNIT TAB) Take one(1) tablet twice daily. - therapeutic multivitamin ORAL Tab Take one(1) tablet daily. Problem List As Of Date: 07/12/2021 (None) Encounter Status:Closed by ROSE ROWLAND MA on 07/13/21 Normal [facility] Vital Signs Date Time Vital Sign Value Performing Clinician Hansel gibson 07-27-2023 16:44-0400 Body height 157.48 cm [facility] 07-27-2023 16:44-0400 Body mass index (BMI) [Ratio] 32 kg/m2 [facility] 07-27-2023 16:44-0400 Body temperature 97.8 [degF] [facility] 07-27-2023 16:44-0400 Body weight 79.37 kg [facility] 07-27-2023 16:44-0400 Diastolic blood pressure 70 mm[Hg] [facility] 07-27-2023 16:44-0400 Heart rate 97 /min [facility] 07-27-2023 16:44-0400 Respiratory rate 18 /min [facility] 07-27-2023 16:44-0400 SaO2% (BldA) [Mass fraction] 99 % [facility] 07-27-2023 16:44-0400 Systolic blood pressure 146 mm[Hg] [facility] Encounters Encounter Date Encounter Type Care Provider Facility Start: 01-03-2025 ambulatory Susie Mihsaun Facility: [facility] Start: 12-29-2024 End: 12-29-[address] Susie Vela MD Work Phone: -Outpatient Breast Imaging Start: 12-29-2024 End: 12-29-[address] Susie Vela MD -Outpatient Breast Imaging Work Phone: Start: 12-29-2024 End: 12-29-2024 ambulatory Susie Vela Facility:[facility] Start: 11-09-2024 Non-patient / Non-visit Dr. Lesly hobbs MD -[facility] Work Phone: Start: 10-11-2024 Encounter for genera l adult medical examination without abnormal findings Susie Vela [facility] Start: 10-06-2024 End: 10-06-[address] Susie Vela MD Work Phone: [facility] Work Phone: Start: 10-06-2024 End: 10-06-[address] Susie Vela MD -[facility] Work Phone: Start: 10-06-2024 End: 10-06-2024 ambulatory [facility] Facility:[facility] Start: 06-27-2024 End: 06-27-[address] Lesly Chappell MD -Laboratory Specimen Work Phone: Start: 06-27-2024 End: 06-27-2024 ambulatory Lesly Chappell Facility:[facility] Start: 06-07-2024 End: 06-07-2024 ambulatory [facility] Facility:[facility] Start: 04-27-2024 End: 04-27-2024 ambulatory [facility] Facility:[facility] Start: 10-08-2023 End: 10-09-2023 ambulatory [facility] Facility: Start: 10-08-2023 End: 10-08-2023 Patient encounter procedure [facility] Start: 08-28-2023 End: 08-28-2023 ambulatory [facility] Work Phone: Start: 08-28-2023 End: 08-28-2023 Patient encounter procedure [facility]-Laboratory, Specimen Work Phone: Start: 08-12-2023 End: 08-12-2023 ambulatory [facility] Work Phone: Start: 08-12-2023 End: 08-12-2023 Patient encounter procedure [facility]-LaboratoryJhon [facility] Start: 08-06-2023 End: 08-06-2023 ambulatory [facility] Work Phone: Start: 08-06-2023 End: 08-06-2023 Patient encounter procedure [facility]-LaboratoryYuan Work Phone: Start: 07-27-2023 End: 07-27-2023 Emergency department patient visit [facility]-Emergency Department Work Phone: Start: 03-21-2023 End: 03-21-2023 ambulatory [facility] Work Phone: Start: 03-21-2023 End: 03-21-2023 Patient encounter procedure [facility]-Jhon Beebe [facility] Start: 11-05-2022 End: 11-06-2022 ambulatory PATIENT UNSURE PHYSICIAN Facility:A Start: 11-05-2022 End: 11-05-2022 [facility] Start: 10-10-2022 End: 10-11-2022 ambulatory PATIENT UNSURE PHYSICIAN Facility:B Start: 10-10-2022 End: 10-10-2022 Patient encounter procedure SUSIE VELA [facility] Start: 10-03-2022 End: 10-03-2022 [facility] Start: 10-25-2021 End: 10-25-2021 Patient encounter procedure Frantz Brown MD Work Phone: Orthopaedics Comment on above: Traumatic complete t ear of left rotator cuff, subsequent encounter (Primary Dx) Start: 10-09-2021 Documentation procedure Mammog jessica Coordinator [facility] Start: 10-09-2021 Letter encounter Mammography Coordinator [facility] Department Start: 10-09-2021 End: 10-09-2021 Subsequent hospital visit by physician Screen Mammo [facility] W[facility] Mammogram Comment on above: Encounter for screen ing mammogram for malignant neoplasm of breast [Z12.31] Start: 09-28-2021 Get Medical Advice Yisel Damian MD Work Phone: OB/Gynecology Comment on above: Mammogram order need ed Start: 08-13-2021 End: 08-13-2021 Patient encounter procedure Frantz Brown MD Work Phone: Orthopaedics Comment on above: Traumatic complete t ear of left rotator cuff, initial encounter (Primary Dx) Start: 07-18-2021 Preprocedural examination done Frantz Brown MD Work Phone: [facility] Work Phone: Procedures Date Procedure Procedure Detail Performing Clinician Start: 12-29-2024 Screening mammography Devora Vela MD Work Phone: Start: 10-06-[address] Susie Vela MD Work Phone: Comment on above: Follicular phase 0.1 - 0.9 Luteal phase 1.8 - 23.9 Ovulation phase 0.1 - 12.0 First trimester 11.0 - 44.3 Second trimester 25.4 - 83.3 Third trimester 58.7 - 214.0 Postmenopausal 0.0 - 0.1Performed at: [place] [id number] Director: Anam Bennett PhD, Phone: [phone] Start: 06-27-[address] Sola Vela MD Work Phone: Start: 06-27-2024 Urnls dip stick/tabl et reagent auto microscopy Dr. Susie Vela MD Work Phone: Start: 08-28-2023 Urine culture Start: 08-12-2023 Urine culture Start: 07-27-2023 Urine culture Start: 10-09-2021 End: 10-09-2021 Screening mammography bi 2-view breast inc cad Yisel Damian MD Work Phone: Start: 08-22-2020 Mammography Frantz benitez MD Work Phone: Start: 01-12-2015 Colonoscopy Frantz benitez MD Work Phone: H/O: tubal ligation H/O tubal ligation Dr Veena Vela MD Work Phone: Comment on above: 1988 Plan of Treatment Date Care Activity Detail Author Start: 01-12-2025 Colonoscopy COLONOSCOPY [facility] Start: 01-12-2025 COLORECTAL CANCER SCREENING COLORECTAL CANCER SCREENING [facility] Start: 07-27-2023 End: 07-27-2023 [facility] Start: 07-27-2023 Bacteria identified in Urine by Culture [facility] Start: 10-09-2022 Mammography MAMMOGRAM [facility] Start: 01-10-2022 Influenza vaccination INFLUENZ A (Season Ended) [facility] Start: 08-22-2021 Mammography MAMMOGRAM [facility] Start: 06-10-2021 LIPID SCREEN LIPID SCREEN [facility] Start: 04-10-2021 COVID-19 VACCINE (3 - Booster for Moderna series) COVID-19 VACCINE (3 - Booster for Moderna series) [facility] Start: 06-10-2019 DIABETES SCREEN DIABETES SCREEN [facility] Start: 01-28-2012 SHINGRIX VACCINE (1 of 2) SHINGRIX VACCINE (1 of 2) [facility] Start: 2007 COLOGUARD (FIT-DNA) COLOGUARD (FIT-D NA) [facility] Start: [address] COLONOGRAPHY [facility] Start: 2007 FECAL OCCULT BLOOD FECAL OCCULT BLOO D [facility] Start: 2007 SIGMOIDOSCOPY SIGMOIDOSCOPY [facility] Start: 1981 Urine microalbumin profile DTAP,TDAP,TD (1 - Tdap) [facility] Start: 01-28-1980 HEPATITIS C SCREENING HEPATITIS C SC REENING [facility] Start: 01-28-1980 HIV SCREENING HIV SCREENING [facility] Start: 1974 Adult depression screening assessment DEPRESSION SCREENING [facility] Patient Education ED Hematuria E D Cystitis Female Adult [facility] Work Phone: Patient referral [facility] Work Phone: End: 10-28-2022 Screening mammography bi 2-view breast inc cad MARÍA SCREENING Radiology Routine Encounter for screening mammogram for malignant neoplasm of breast 1 Occurrences starting 09/28/2021 until 10/28/2022 [facility] Work Phone: Comment on above: 1 Occurrences starti ng 09/28/2021 until 10/28/2022 [facility] Payers Date Payer Category Payer Self-pay [id number] 2024 Unknown [id number] 2024 Self-pay [id number] 2024 Unknown [id number] 2022 Unknown [id number] 2021 Unknown [employer] PRE ANA M FULLY INSURED [id number] 2021-Present [phone] [address] [place] [address] PPO [id number] 1960 Unknown [id number] 1960 Unknown [id number] 1960 Unknown [id number] Unknown [facility] [id number] Unknown [id number] Unknown [id number] Unknown [id number] Unknown [id number] Unknown [id number] Unknown [id number] Unknown [id number] Social History Date Type Detail Facility Start: 11-14-2023 End: 12-07-2024 Tobacco smoking status NHIS Never smoked tobacco [facility] Work Phone: Start: 08-23-2021 End: 10-25-2021 Alcohol intake Current drinker of alcohol (finding) [facility] Start: 1960 Sex Assigned At Not on file [facility] Start: 08-03-2021 End: 10-25-2021 Exposure to SARS-CoV-2 (event) Not sure [facility] Work Phone: Start: 04-02-2022 End: 07-27-2023 Tobacco smoking status NHIS Unknown if ever smoked [facility] Start: 1960 Sex Assigned At Female W [facility] Medical Equipment Procedure Code Equipment Code Equipment Origin al Text Equipment Identifier Dates Cystoscopy, with retrograde pyelogram, ureteroscopy, laser procedure, and stent inser Polymeric ureteral stent ()[id number] FDA Start: 10-30-2023 [place] [employer] Fb [id number] Start: 08-01-2021 System Speedbrid ge Swivelock 4.75mm Biocomposite 19.1mm Endoscopic Fixation - [id number] Start: 08-01-2021 Clinical Notes 07-12-2021 to 11-05-2022 Frantz Brown MD - 10/25/2021 9:11 AM Luis Cisse - 10/09/2021 9:23 AM RT Oswaldo(Isabella) - 10/09/2021 9:10 AM Black Brown MD - 08/13/2021 1:53 PM EDT Note Date & Type Note Facility 11-05-2022 Note ORIGINAL FROM: [facility] [address] [place] [address] PROCEDURE FOR: SABINA LOZANO [address] [place] [address] Home: PID#: [id number] Exam#: [id number] : 1960 Age: 62 TO: SUSIE VELA MD [address] [place] [address] EXAMINATION: ULTRASOUND OF THE RIGHT BREAST 11/05/2022 [...] VELA CLINICAL: PALPABLE LUMP RIGHT BREASTRETROAREOLAR REGION. Sliver Lapper: KENN RODRIGUEZ [facility] letter sent: Normal BI-RADS 1 and 2 Ultrasound BI-RADS: 2 Benign [facility] 11-05-2022 Note ORIGINAL FROM: [facility] [address] [place] [address] PROCEDURE FOR: SABINA LOZANO [address] [place] [address] Home: PID#: [id number] Exam#: [id number] : 1960 Age: 62 TO: SUSIE VELA MD [address] [place], [place] [address] EXAMINATION: ULTRASOUND OF THE RIGHT BREAST 11/05/2022 [...] VELA CLINICAL: PALPABLE LUMP RIGHT BREASTRETROAREOLAR REGION. Sliver Lapper: KENN RODRIGUEZ [facility] letter sent: Normal BI-RADS 1 and 2 Ultrasound BI-RADS: 2 Benign [facility] 10-10-2022 Note ORIGINAL FROM: [address] [address] PROCEDURE FOR: SABINA LOZANO [address] [place] [address] Home: PID#: [id number] Exam#: [id number] : 1960 Age: 62 TO: SUSIE VELA MD [address] [place], [place] [address] EXAMINATION: ULTRASOUND OF THE RIGHT BREAST 10/10/2022 [...] SUSIE VELA CLINICAL: PALPABLE LUMP RIGHT BREAST. Sliver Lapper: [place]N [place] RT(Isabella) RDAZ letter sent: Normal BI-RADS 1 and 2 Ultrasound BI-RADS: 0 Indeterminate [facility] 10-10-2022 Note ORIGINAL FROM: [facility] [address] [place], [place] [address] PROCEDURE FOR: SABINA LOZANO [address] [place] [address] Home: PID#: [id number] Exam#: [id number] : 1960 Age: 62 TO: SUSIE VELA MD [facility] [place] [address] EXAMINATION: ULTRASOUND OF THE RIGHT BREAST 10/10/2022 [...] SUSIE VELA CLINICAL: PALPABLE LUMP RIGHT BREAST. Sliver Lapper: [place] [place] RT(R) RDMS letter sent: Normal BI-RADS 1 and 2 Ultrasound BI-RADS: 0 [facility] 10-25-2021 Note HNO ID: [id number] Author: Frantz Brown MD Service: ? Author Type: Physician Type: Progress Notes Filed: 11/05/2021 10:29 AM Note Text: Frantz Brown MD Department of Orthopaedics Orthopaedics [address] [facility] [address] Dept: [phone] Dept October 25, 2021 CHIEF COMPLAINT: Post [...] this visit. Allergies: Sulfa (Sulfonamide Antibiotics) Frantz Brown MD [facility] 10-25-2021 History of Present illness Narrative Frantz Brown MD Department of Orthopaedics Orthopaedics [address] [facility] [address] Dept: [phone] Dept October 25, 2021 CHIEF COMPLAINT: Post [...] this visit. Allergies: Sulfa (Sulfonamide Antibiotics) Frantz Brown MD documented in this encounter [facility] 10-09-2021 Note HNO ID: [id number] Author: RT Joelle(R) Service: ? Author Type: [...] RT Joelle(R) October 09, 2021 9:09 AM [facility] 10-09-2021 Miscellaneous Notes October 09, 2021 PID: [id number] Sabina Huynh Blake [address] [place] [address] Dear Blake, We are pleased to inform you that [...] report will be kept on file at [facility] as part of your permanent medical record and are available for your continuing care. Thank you for allowing us to help in meeting your health care needs. Sincerely, Dr. Medrano Interpreting Radiologist [facility] (Normal over 40) documented in this encounter [facility] 10-09-2021 History of Present illness Narrative Radiology [...] 2021 9:09 AM documented in this encounter [facility] 09-20-2021 Note HNO ID: [id number] Author: Frantz Brown MD Service: ? Author Type: Physician Type: Progress Notes Filed: 09/20/2021 1:49 PM Note Text: Frantz Brown MD Department of Orthopaedics Orthopaedics [address] [facility] [address] Dept: [phone] Dept September 20, 2021 CHIEF COMPLAINT: Established [...] op rehab/ therapy at a place in [place] ([facility]). ASSESSMENT: S46.012A Traumatic complete tear [...] this visit. Allergies: Sulfa (Sulfonamide Antibiotics) Frantz Brown MD [facility] 08-13-2021 Note HNO ID: [id number] Author: Frantz Brown MD Service: ? Author Type: Physician Type: Progress Notes Filed: 08/23/2021 8:48 AM Note Text: Frantz Brown MD Department of Orthopaedics Orthopaedics [address] [facility] [address] Dept: [phone] Dept August 13, 2021 CHIEF COMPLAINT: post op left shoulder. HPI She is about 2 and half or 3 weeks after surgery. Everything is looking quite well. She not having much troubles at all other than what you would expect with some normal and mild stiffness and soreness in the shoulder. Patient presents for suture removal after appointment with Dr. Brown. The wound is well healed without signs [...] this visit. Allergies: Sulfa (Sulfonamide Antibiotics) Frantz Brown MD [facility] 08-13-2021 History of Present illness Narrative Frantz Brown MD Department of Orthopaedics Orthopaedics [facility] [address] [facility] [address] Dept: [phone] Dept August 13, 2021 CHIEF COMPLAINT: post op left shoulder. HPI She is about 2 and half or 3 weeks after surgery. Everything is looking quite well. She not having much troubles at all other than what you would expect with some normal and mild stiffness and soreness in the shoulder. Patient presents for suture removal after appointment with Dr. Brown. The wound is well healed without signs [...] this visit. 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 Author [...] SIGNATURE: Xavi Stephenson MD PATIENT NAME: Sabina Cortés [facility] DATE: August 01, 2021 TIME: 7:50 AM CSN: [id number] [facility] 07-12-2021 Note HNO ID: [id number] Author: Frantz Brown MD Service: ? Author Type: Physician Type: Progress Notes Filed: 07/31/2021 8:04 AM Note Text: Frantz Brown MD Department of Orthopaedics Orthopaedics [address] [facility] [address] Dept: [phone] Dept July 12, 2021 CHIEF COMPLAINT: New [...] Colonoscopy - LIG/TRNSXJ FLP TUBE ABDL/VAG APPR /BI 1990 Tubal ligation - PAST SURGICAL HISTORY [...] Ms. Sabina gruber (more content not included)... [facility] Evaluation + Plan note No data available for this section [facility] Evaluation note Diagnosis Traumatic complete tear of left rotator cuff, initial encounter- Primary documented in this encounter [facility] note* Diagnosis Encounter for screening mammogram for malignant neoplasm of breast- Primary Other screening mammogram documented in this encounter [facility] note* Diagnosis Encounter for screening mammogram for malignant neoplasm of breast Other screening mammogram documented in this encounter [facility] note* Diagnosis Traumatic complete tear of left rotator cuff, subsequent encounter- Primary documented in this encounter [facility] noteNo assessment information availableWMount [facility]. [facility] Work Phone: Hospital Discharge instructions No data available for this section [facility] Progress note No data available for this section [facility] Reason for referral (narrative)* Diagnostic Procedure Only (Routine) - Pending Review Specialty Diagnoses / Procedures Referred By Miriam marks Referred To Contact [facility] Diagnoses Encounter for screening mammogram for malignant neoplasm of breast Procedures MARÍA SCREENING SCREENING MAMMOGRAPHY BI 2-VIEW BREAST INC Yisel Hernandez MD [facility] [place] [address] [facility] [address] [place] [address] Referral ID Status Reason Start Date Expiration Date Visits Requested Visits Authorized [id number] Pending Review Auto-Generat ed Referral 09/28/2021 10/28/2022 1 1 [facility] for referral (narrative)* Diagnostic Procedure Only (Routine) - Closed Specialty Diagnoses / Procedures Referred By Miriam marks Referred To Contact [facility] Diagnoses Encounter for screening mammogram for malignant neoplasm of breast Procedures MARÍA SCREENING SCREENING MAMMOGRAPHY BI 2-VIEW BREAST INC Yisel Hernandez MD [address] [place] [address] [facility] [address] [place] [address] Referral ID Status Reason Start Date Expiration Date V isits Requested Visits Authorized [id number] Closed Auto-Generate d Referral 09/28/2021 10/28/2022 1 1 [facility]No reason for referral information availableWMount St. [facility] Work Phone: Reason for visit Narrative* Diagnostic Procedure Only (Routine) - Closed Specialty Diagnoses / Procedures Referred By Contac t Referred To Contact [facility] Diagnoses Encounter for screening mammogram for malignant neoplasm of breast Procedures MARÍA SCREENING SCREENING MAMMOGRAPHY BI 2-VIEW BREAST INC CAD Yisel Damian MD [address] [place] [address] [facility] [address] [place] [address] Referral ID Status Reason Start Date Expiration Date V isits Requested Visits Authorized [id number] Closed Auto-Generate d Referral 09/28/2021 10/28/2022 1 1 [facility] Summary Purpose Family History No Family History Records Found Relationship Condition Age at Onset Recorded Date/T consuelo father Hypertension Unknown mother Dementia Unknown Relationship Condition Age at Onset Recorded Date/T consuelo father Hypertension Unknown mother Dementia Unknown Primary malignant ne oplasm of aortic body Unknown aunt Malignant neoplasm of breast Unknown Advance Directives No Advanced Directives Records FoundDocuments on File Type Date Recorded 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 Advance Directive(s) 07/23/2021 1:11 PM Documents on File Type Date Recorded 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 Advance Directive(s) 07/23/2021 1:11 PM Advance Directive Response Recorded Date/ Time Advance Directives No September 16, 2014 2:16pm Living Will Yes September 16, 2014 2: 16pm Power of Net Lead Architect No September 16, 2014 2:16pm Advance Directive Response Recorded Date/ Time Advance Directives No September 16, 2014 3:16pm Living Will No July 27, 2023 5:28pm Power of Net Lead Architect No July 26 5:28pm Advance Directive Response Recorded Date/ Time Advance Directives No September 16, 2014 3:16pm Chief Complaint and Reason for Visit Chief Complaint BLOOD IN URINE Chief Complaint Admit Date FASTING October 06, 2024 9:12a m Chief Complaint Admit Date FASTING October 06, 2024 9:12a m SCREENING December 29, 2024 1: 25pm Additional Source Comments INFORMATION SOURCE (unrecogn ized section and content) DATE CREATED AUTHOR 08/02/2021 [facility] DATE CREATED AUTHOR AUTHOR'S ORGANIZ ATION 11/05/2021 [facility] DATE CREATED AUTHOR AUTHOR'S ORGANIZ ATION 10/09/2023 [facility] ([place] DATE CREATED AUTHOR AUTHOR'S ORGANIZ ATION 01/18/2025 [facility] Source Comments (unrecognize d section and content) In the event this informatio n is protected by the Federal Confidentiality of Alcohol and Drug Abuse Patient Records regulations: The Federal rules restrict any use of the information to criminally investigate or prosecute any alcohol or drug abuse patient.[facility] the event this information is protected by the Federal Confidentiality of Alcohol and Drug Abuse Patient Records regulations: The Federal rules restrict any use of the information to criminally investigate or prosecute any alcohol or drug abuse patient.[facility] Center[facility] the event this information is protected by the Federal Confidentiality of Alcohol and Drug Abuse Patient Records regulations: The Federal rules restrict any use of the information to criminally investigate or prosecute any alcohol or drug abuse patient.[facility] Center[facility] the event this information is protected by the Federal Confidentiality of Alcohol and Drug Abuse Patient Records regulations: The Federal rules restrict any use of the information to criminally investigate or prosecute any alcohol or drug abuse patient.[facility] Center[facility] the event this information is protected by the Federal Confidentiality of Alcohol and Drug Abuse Patient Records regulations: The Federal rules restrict any use of the information to criminally investigate or prosecute any alcohol or drug abuse patient.[facility] Reason for Visit (unrecogniz ed section and content) Reason Comments post op left shoulder Reason Comments 12 weeks 1 days post op Left shoulder ar throscopic rotator cuff repair and SAD Post Op Care Teams (unrecognized sec tion and content) Business Services 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 Relationship Specialty Start Date End Date Susie Vela [address] [place] [address] PCP - General Family Practice 07/23/21 Business Services Intern Relationship Specialty Start Date End Date Susie Vela [address] [address] PCP - General Family Practice 07/23/21 Business Services Intern Relationship Specialty Start Date End Date Caleb Velajaqueline Ortega [address] [place], [place] [id number] PCP - General Family Practice 07/23/21 Business Services Intern Relationship Specialty Start Date End Date Susie Vela [address] [place], [place] [id number] PCP - General Family Practice 07/23/21 Business Services Intern Relationship Specialty Start Date End Date Susie Vela [address] [place], [place] [id number] PCP - General Family Practice 07/23/21 Team Status: Active Member Role Status Dates No Primary Care Physician Family Provider Active Dr. Susie Vela MD Primary Care Provider Active Team Status: Inactive Member Role Status Dates Dr. Susie Vela MD Primary Care Prov ider, Attending Provider, Referring Provider Active Team Status: Inactive Member Role Status Dates Dr. Susie Vela MD Primary Care Provider Active Dr. Geovanni Dillon DO Emergency Provider Active Team Status: Inactive Member Role Status Dates Dr. Susie Vela MD Primary Care Provider Active Dr. Geovanni Dillon DO Attending Provider, Emergency P ilene Active Team Status: Active Member Role Status Dates Dr. Susie Vela MD Primary Care Provider, Attendin g Provider Active Team Status: Inactive Member Role Status Dates Dr. Susie Vela MD Primary Care Provider, Attendin g Provider Active Team Status: Active Member Role Status Dates Dr. Susie Vela MD Primary Care Provider Active Team Status: Inactive Member Role Status Dates Dr. Susie Vela MD Primary Care Provider Active Start: June 27, 2024 End: June 27, 2024 Dr. Lesly Chappell MD Attending Provider Active Start: June 27, 2024 End: June 27, 2024 Team Status: Inactive Member Role Status Dates Dr. Susie Vela MD Primary Care Provider Active Start: October 06, 2024 End: October 06, 2024 Dr. Susie Vela MD Attending Provider Active Start: October 06, 2024 End: October 06, 2024 Dr. Susie Vela MD Referring Provider Active Start: October 06, 2024 End: October 06, 2024 Team Status: Active Member Role/Relationship Status Dates Dr. Susie Vela MD Primary Care Provider Active Team Status: Inactive Member Role/Relationship Status Dates Dr. Susie Vela MD Primary Care Provider Active Start: October 06, 2024 End: October 06, 2024 Dr. Susie Vela MD Attending Provider Active Start: October 06, 2024 End: October 06, 2024 Dr. Susie Vela MD Referring Provider Active Start: October 06, 2024 End: October 06, 2024 Team Status: Inactive Member Role/Relationship Status Dates Dr. Susie Vela MD Primary Care Provider Active Start: November 09, 2024 Dr. Lesly Chappell MD Attending Provider Active Start: November 09, 2024 Team Status: Inactive Member Role/Relationship Status Dates Dr. Susie Vela MD Primary Care Provider Active Start: December 29, 2024 End: December 29, 2024 Dr. Susie Vela MD Attending Provider Active Start: December 29, 2024 End: December 29, 2024 Dr. Susie Vela MD Referring Provider Active Start: December 29, 2024 End: December 29, 2024 Goals (unrecognized section and content) Goals may be documented in a n alternate section FOR RECORDS PERTAINING TO PATIENTS WHO ARE [...] BE BASED ON THE PRIMARY CLINICAL RECORDS. [employer] provides no warranty or guarantee of the accuracy or completeness of information in this document.
== END | disposition home or self-care (01) ==
LOC: LABSPEC 03-17 10:07
PROVIDERS: PCP Family Medicine; Visit Provider Urology
DX: N20.0 Calculus of kidney (principal)
CPT/HCPCS: 82360